=== PATIENT | female | born 1975 | race Hispanic/Latino ===

== ENCOUNTER 2016-05-06 10:49 | Inpatient (IN) | payer MEDICAID, OTHER ==
[2016-05-06 11:00] VITALS: BMI 27.6
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
[2016-05-06] MEDS: OLANZapine 5 mg Disintegrating Tab PO SCH (21:15)
[2016-05-06] MEDS: Divalproex 500 mg DR(BID formulation) PO SCH (21:15)
[2016-05-07] MEDS: Divalproex 500 mg DR(BID formulation) PO SCH ×2 (09:23→21:22)
[2016-05-07] MEDS: Multivitamin With Minerals Tab PO SCH (09:24)
--- NOTE | 2016-05-07 10:03 | PCM.PYCHPN ---
Psychiatric Progress Note - Psychiatric Progress Note Patient seen today, length of contact: Patient evaluated, case discussed with team, chart reviewed Patient Chief Complaint: "I'm okay" Problems Identified/Issues Discussed: Patient was calm and cooperative overnight. She was pleasant to senior medical writer. Observed lying in bed with her Joseph doll (stuffed animal). She denied current compliants or adverse effects to her medications. She states that her mood is good. Medication Change: No Medical Record Reviewed: Yes Mental Status Examination - Cognitive Function Orientation: Person Attention: WNL Concentration: Poor (Poor due to dementia) Association: Loose (Loose due to dementia) Fund of Knowledge: Poor (Poor due to dementia) Decription of patient's judgement and insights: Poor due to dementia - Mood Mood: Neutral - Affect Affect: Broad - Formal Thought Process Formal Thought Process: Delusions, Loosening of associations Psychotic Thoughts and Behaviors: No AH/VH/paranoia - Suicidal Ideation Suicidal Ideation: No - Homicidal Ideation Homicidal Ideation: No Goal/Treatment Plan - Goal/Treatment Plan Need for Continued Stay: Remain at risks for inpatient hospitalization, Severe functional impairment Progress Toward Problem(s) and Goals/Treatment Plan: Impression: 40 yo female with dementia with behavioral disturbances, due to h/o cardiac arrest and complications related to anoxia Plan: -Individual, group and milieu tx -Will work with court appointed guardian for disposition planning, patient will likely need detention care upon discharge due to diminished functioning -Continue Seroquel 50 mg PO HS, will continue to slowly taper it off after patient has been on the increased dosage of Zyprexa for a few days -Continue Zyprexa 15 mg PO HS, will consider increasing dosage if clinically indicated. -Continue Depakote 500 mg Daily/ 1000 mg HS
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
[2016-05-07] MEDS: OLANZapine 5 mg Disintegrating Tab PO SCH (21:22)
--- NOTE | 2016-05-08 08:48 | PCM.PYCHPN ---
Psychiatric Progress Note - Psychiatric Progress Note Patient seen today, length of contact: Patient evaluated, case discussed with team, chart reviewed Patient Chief Complaint: "I'm okay" Problems Identified/Issues Discussed: Patient was calm and cooperative overnight. She was pleasant to conventional underwriter. She denied current complaints or adverse effects to her medications. She states that her mood is good. She continues to be disoriented to time and location. Medication Change: No Medical Record Reviewed: Yes Mental Status Examination - Cognitive Function Orientation: Person Attention: WNL Concentration: Poor (Poor due to dementia) Association: Loose (Loose due to dementia) Fund of Knowledge: Poor (Poor due to dementia) Decription of patient's judgement and insights: Poor due to dementia - Mood Mood: Neutral - Affect Affect: Broad - Formal Thought Process Formal Thought Process: Delusions, Loosening of associations Psychotic Thoughts and Behaviors: No clear AH/VH - Suicidal Ideation Suicidal Ideation: No - Homicidal Ideation Homicidal Ideation: No Goal/Treatment Plan - Goal/Treatment Plan Need for Continued Stay: Remain at risks for inpatient hospitalization, Severe functional impairment Progress Toward Problem(s) and Goals/Treatment Plan: Impression: 40 yo female with dementia with behavioral disturbances, due to h/o cardiac arrest and complications related to anoxia Plan: -Individual, group and milieu tx -Will work with court appointed guardian for disposition planning, patient will likely need longterm care upon discharge due to diminished functioning -Continue Seroquel 50 mg PO HS, will continue to slowly taper it off after patient has been on the increased dosage of Zyprexa for a few days -Continue Zyprexa 15 mg PO HS, will consider increasing dosage if clinically indicated. -Continue Depakote 500 mg Daily/ 1000 mg HS
[2016-05-08] MEDS: Divalproex 500 mg DR(BID formulation) PO SCH (09:28)
[2016-05-08] MEDS: Multivitamin With Minerals Tab PO SCH (09:29)
[2016-05-08 10:10] LABS: HEMATOCRIT 41.3 % (34.0-47.0); MEAN CELL VOLUME 88.9 fl (81.0-99.0); MEAN CORPUSCULAR HEMOGLOBIN 28.7 pg (27.0-31.0); MEAN CORPUSCULAR HGB CONC 32.2 g/dL (33.0-37.0); RED CELL DISTRIBUTION WIDTH 13.7 % (11.5-14.5); WHITE BLOOD COUNT 5.9 K/uL (4.8-10.8)
[2016-05-08] MEDS: OLANZapine 5 mg Disintegrating Tab PO SCH (21:03)
[2016-05-09] MEDS: Multivitamin With Minerals Tab PO SCH (08:54)
--- NOTE | 2016-05-09 09:37 | CP.PCM.PN ---
Subjective - Date & Time of Evaluation Date of Evaluation: 05/09/16 Time of Evaluation: 08:30 - Subjective Subjective: Pt seen and evaluated at bedside. Sitting up in bed, looking through a magazine. Denies any complaints at this time. Has been sleeping and eating well. Last BM yesterday. Objective - Vital Signs/Intake and Output Vital Signs (last 24 hours): Temp Pulse Resp BP Pulse Ox 97 F L 75 20 131/81 05/09/16 06:00 05/09/16 08:54 05/09/16 06:00 05/09/16 08:54 - Medications Medications: Current Medications Amiodarone HCl (Cordarone) 200 mg PO DAILY [facility] Last Admin: 05/09/16 08:54 Dose: 200 mg Apixaban (Eliquis) 2.5 mg PO DAILY [facility] PRN Reason: Protocol Last Admin: 05/09/16 08:53 Dose: 2.5 mg Cholecalciferol (Vitamin D) 1,000 iu PO DAILY [facility] Last Admin: 05/09/16 08:54 Dose: 1,000 iu Divalproex Sodium (Depakote Dr(*Bid*)) 1,000 mg PO HS [facility] Last Admin: 05/07/16 21:22 Dose: 1,000 mg Divalproex Sodium (Depakote Dr(*Bid*)) 500 mg PO DAILY [facility] Last Admin: 05/08/16 09:28 Dose: 500 mg Ferrous Sulfate (Feosol) 325 mg PO DAILY [facility] Last Admin: 05/09/16 08:54 Dose: 325 mg Lorazepam (Ativan) 1 mg PO Q4 PRN PRN Reason: Agitation Multivitamins/Minerals (Therapeutic-M Tab) 1 tab PO DAILY [facility] Last Admin: 05/09/16 08:54 Dose: 1 tab Olanzapine (Zyprexa Zydis) 15 mg PO HS [facility] Last Admin: 05/08/16 21:03 Dose: 15 mg Quetiapine Fumarate (Seroquel) 50 mg PO HS [facility] Last Admin: 05/08/16 21:04 Dose: 50 mg - Labs Labs: 05/08/16 08:54 - Constitutional Appears: No Acute Distress - Head Exam Head Exam: NORMAL INSPECTION - Eye Exam Eye Exam: Normal appearance - ENT Exam ENT Exam: Mucous Membranes Moist - Respiratory Exam Respiratory Exam: Clear to Ausculation Bilateral - Cardiovascular Exam Cardiovascular Exam: REGULAR RHYTHM - GI/Abdominal Exam GI & Abdominal Exam: Soft, Normal Bowel Sounds. absent: Tenderness - Extremities Exam Extremities Exam: absent: Calf Tenderness - Neurological Exam Neurological Exam: Awake Assessment and Plan - Assessment and Plan (Free Text) Assessment: 1. S/P Cardiac Arrest in 10/2015 - V-fib secondary to cardiomyopathy - Echo ~ 15-20% - C/w Eliquis 2.5mg daily - C/w Amiodarone 200mg PO daily 2. Anoxic encephalopathy with behavior disturbances - Management per psych
--- NOTE | 2016-05-09 10:42 | PCM.PYCHPN ---
Psychiatric Progress Note - Psychiatric Progress Note Patient seen today, length of contact: Patient evaluated, case discussed with team, chart reviewed Patient Chief Complaint: i'm a little tired Problems Identified/Issues Discussed: pt tolerating meds, although depakote held by rn last night. she is without aggression or agitation and is no longer on 1:1 supervision. she is oriented to self only. irritable at times, but is redirectable. Medication Change: No Medical Record Reviewed: Yes Mental Status Examination - Cognitive Function Orientation: Person Attention: WNL Concentration: Poor (Poor due to dementia) Association: Loose (Loose due to dementia) Fund of Knowledge: Poor (Poor due to dementia) Decription of patient's judgement and insights: poor - Mood Mood: Neutral - Affect Affect: Broad - Formal Thought Process Formal Thought Process: Delusions, Loosening of associations - Suicidal Ideation Suicidal Ideation: No - Homicidal Ideation Homicidal Ideation: No Goal/Treatment Plan - Goal/Treatment Plan Need for Continued Stay: Remain at risks for inpatient hospitalization, Severe functional impairment Progress Toward Problem(s) and Goals/Treatment Plan: continue current medications t.c checking depakote level if pt still c/o sedation
[2016-05-09] MEDS: Divalproex 500 mg DR(BID formulation) PO SCH ×2 (12:57→22:01)
[2016-05-09] MEDS: OLANZapine 5 mg Disintegrating Tab PO SCH (22:02)
[2016-05-10] MEDS: Multivitamin With Minerals Tab PO SCH (08:35)
[2016-05-10] MEDS: Divalproex 500 mg DR(BID formulation) PO SCH ×2 (08:35→21:02)
--- NOTE | 2016-05-10 11:16 | PCM.PYCHPN ---
Psychiatric Progress Note - Psychiatric Progress Note Patient seen today, length of contact: Patient evaluated, case discussed with team, chart reviewed Patient Chief Complaint: i'm still tired Problems Identified/Issues Discussed: pt in day area watching [employer]. states she is "a little tired" pt's pm seroquel, zyprexa and depakote held as she was sleeping- last 2 nights. pt without any aggression, agitation. she is no longer on 1:1 supervision. no self injurious behaviors. Medication Change: Yes (dc hs seroquel) Medical Record Reviewed: Yes Mental Status Examination - Cognitive Function Orientation: Person Attention: WNL Concentration: Poor (Poor due to dementia) Association: Loose (Loose due to dementia) Fund of Knowledge: Poor (Poor due to dementia) Decription of patient's judgement and insights: poor insight, good impulse control currently - Mood Mood: Neutral - Affect Affect: Broad - Formal Thought Process Formal Thought Process: Delusions, Loosening of associations - Suicidal Ideation Suicidal Ideation: No - Homicidal Ideation Homicidal Ideation: No Goal/Treatment Plan - Goal/Treatment Plan Need for Continued Stay: Remain at risks for inpatient hospitalization, Severe functional impairment Progress Toward Problem(s) and Goals/Treatment Plan: continue current medications have dc'd seroquel as pt not getting it x 2 nights t/c switching to daily depakote er, but will leave to primary team
[2016-05-10] MEDS: OLANZapine 5 mg Disintegrating Tab PO SCH (21:02)
[2016-05-11 07:28] LABS: HEMATOCRIT 37.3 % (34.0-47.0); MEAN CELL VOLUME 86.8 fl (81.0-99.0); MEAN CORPUSCULAR HEMOGLOBIN 28.9 pg (27.0-31.0); MEAN CORPUSCULAR HGB CONC 33.3 g/dL (33.0-37.0); RED CELL DISTRIBUTION WIDTH 13.5 % (11.5-14.5); WHITE BLOOD COUNT 5.5 K/uL (4.8-10.8)
[2016-05-11] MEDS: Multivitamin With Minerals Tab PO SCH (08:27)
[2016-05-11] MEDS: Divalproex 500 mg DR(BID formulation) PO SCH ×3 (08:29→21:15)
--- NOTE | 2016-05-11 08:39 | PCM.PYCHPN ---
Psychiatric Progress Note - Psychiatric Progress Note Patient seen today, length of contact: Patient evaluated, case discussed with team, chart reviewed Patient Chief Complaint: "I'm good" Problems Identified/Issues Discussed: No significant events over the weekend. Patient calm and cooperative with sports book writer. She has been eating well and sleeping well as per staff. She denied current complaints or adverse effects to her medications. She states that her mood is good. She continues to be disoriented to time and location. Medication Change: No (Change Depakote 1000 mg time to Daily@1700, Lower Zyprexa to 10 mg @1700) Medical Record Reviewed: Yes Mental Status Examination - Cognitive Function Orientation: Person Attention: WNL Concentration: Poor (Poor due to dementia) Association: Loose (Loose due to dementia) Fund of Knowledge: Poor (Poor due to dementia) Decription of patient's judgement and insights: Poor insight and judgment due to dementia - Mood Mood: Neutral - Affect Affect: Broad - Speech Speech: Appropriate - Formal Thought Process Formal Thought Process: Delusions, Loosening of associations Psychotic Thoughts and Behaviors: No AH/VH. Patient continues to refer to her Joseph doll as her baby, but does seem to understand that it is not a real person. - Suicidal Ideation Suicidal Ideation: No - Homicidal Ideation Homicidal Ideation: No Goal/Treatment Plan - Goal/Treatment Plan Need for Continued Stay: Remain at risks for inpatient hospitalization, Severe functional impairment Progress Toward Problem(s) and Goals/Treatment Plan: Impression: 40 yo female with dementia with behavioral disturbances, due to h/o cardiac arrest and complications related to anoxia Plan: -Individual, group and milieu tx -Will work with court appointed guardian for disposition planning, patient will likely need prison care upon discharge due to diminished functioning -Change time of Depakote 1000 mg to Daily@1700 as it was held over the weekend because the patient was sleeping -Attempt to lower Zyprexa to 10 mg PO Daily @1700 as patient was in good behavioral control over the weekend even with missing doses due to sleeping at night. If patient has worsening behavior with lowered dose, will consider increasing it again. Would aim to optimize her treatment at the lowest effective doses of medications.
--- NOTE | 2016-05-12 07:50 | PCM.PYCHPN ---
Psychiatric Progress Note - Psychiatric Progress Note Patient seen today, length of contact: Patient evaluated, case discussed with team, chart reviewed Patient Chief Complaint: "I'm good" Problems Identified/Issues Discussed: No significant events overnight. Patient attempted to tell the keno writer/runner a story but became confused in the middle of the story and stopped. Patient calm and cooperative. She denied current complaints or adverse effects to her medications. She states that her mood is good. She continues to be disoriented to time and location. Medication Change: No (Lower Depakote to 500 mg AM/ 750 mg Daily@1700) Medical Record Reviewed: Yes Mental Status Examination - Cognitive Function Orientation: Person Attention: WNL Concentration: Poor (Poor due to dementia) Association: Loose (Loose due to dementia) Fund of Knowledge: Poor (Poor due to dementia) Decription of patient's judgement and insights: Poor insight and judgment due to dementia - Mood Mood: Neutral - Affect Affect: Broad - Speech Speech: Appropriate - Formal Thought Process Formal Thought Process: Delusions, Loosening of associations Psychotic Thoughts and Behaviors: No reported AH/VH. Carries a john doll and calls it her baby, but appears to know that the doll is not real. - Suicidal Ideation Suicidal Ideation: No - Homicidal Ideation Homicidal Ideation: No Goal/Treatment Plan - Goal/Treatment Plan Need for Continued Stay: Remain at risks for inpatient hospitalization, Severe functional impairment Progress Toward Problem(s) and Goals/Treatment Plan: Impression: 40 yo female with dementia with behavioral disturbances, due to h/o cardiac arrest and complications related to anoxia Plan: -Individual, group and milieu tx -Will work with court appointed guardian for disposition planning, patient will likely need alf care upon discharge due to diminished functioning -Lower Depakote to 500 mg AM/ 750 mg PO @1700; as patient was in good behavioral control over the weekend even with missing doses due to sleeping at night. If patient has worsening behavior with lowered dose, will consider increasing it again. Would aim to optimize her treatment at the lowest effective doses of medications. -Continue Zyprexa 10 mg PO Daily @1700
[2016-05-12] MEDS: Multivitamin With Minerals Tab PO SCH (08:45)
[2016-05-12] MEDS: Divalproex 500 mg DR(BID formulation) PO SCH (08:46)
--- NOTE | 2016-05-12 11:53 | CP.PCM.PN ---
Subjective - Date & Time of Evaluation Date of Evaluation: 05/12/16 Time of Evaluation: 07:00 - Subjective Subjective: 40 YO F appears to be doing well. She was sitting at bedside looking through magazines. She states she feels well, she has been eating fine and has no problems going to the bathroom. Denies any SOB, chest pain , diziness, headache. Objective - Vital Signs/Intake and Output Vital Signs (last 24 hours): Temp Pulse Resp BP Pulse Ox 97.7 F 70 18 86/57 L 05/12/16 06:00 05/12/16 08:44 05/12/16 06:00 05/12/16 08:44 - Medications Medications: Current Medications Amiodarone HCl (Cordarone) 200 mg PO DAILY [facility] Last Admin: 05/12/16 08:44 Dose: Not Given Apixaban (Eliquis) 2.5 mg PO DAILY [facility] PRN Reason: Protocol Last Admin: 05/12/16 08:45 Dose: 2.5 mg Cholecalciferol (Vitamin D) 1,000 iu PO DAILY [facility] Last Admin: 05/12/16 08:45 Dose: 1,000 iu Divalproex Sodium (Depakote Dr(*Bid*)) 500 mg PO DAILY [facility] Last Admin: 05/12/16 08:46 Dose: 500 mg Divalproex Sodium (Depakote Dr(*Bid*)) 750 mg PO DAILY@1700 [facility] Ferrous Sulfate (Feosol) 325 mg PO DAILY [facility] Last Admin: 05/12/16 08:45 Dose: 325 mg Lorazepam (Ativan) 1 mg PO Q4 PRN PRN Reason: Agitation Multivitamins/Minerals (Therapeutic-M Tab) 1 tab PO DAILY [facility] Last Admin: 05/12/16 08:45 Dose: 1 tab Olanzapine (Zyprexa) 10 mg PO DAILY@1700 [facility] Last Admin: 05/11/16 17:14 Dose: Not Given - Labs Labs: 05/11/16 07:04 - Constitutional Appears: No Acute Distress - Eye Exam Eye Exam: Normal appearance - ENT Exam ENT Exam: Mucous Membranes Moist - Respiratory Exam Respiratory Exam: Clear to Ausculation Bilateral, NORMAL BREATHING PATTERN - Cardiovascular Exam Cardiovascular Exam: REGULAR RHYTHM, +S1, +S2 - Neurological Exam Neurological Exam: Alert, Awake, Oriented x3 - Psychiatric Exam Psychiatric exam: Normal Affect, Normal Mood - Skin Skin Exam: Dry, Normal Color Assessment and Plan - Assessment and Plan (Free Text) Assessment: 1. S/P Cardiac Arrest in 10/2015 - V-fib secondary to cardiomyopathy - Echo ~ 15-20% - C/w Eliquis 2.5mg daily - C/w Amiodarone 200mg PO daily - BP today was noted to be 86/57 w/ HR 70. Will continue to monitor and make adjustments to medications if need. Pt does not appear symptomatic/ 2. Anoxic encephalopathy with behavior disturbances - Management per psych
[2016-05-12] MEDS: Divalproex 250 mg DR(BID formulation) PO SCH (17:01)
[2016-05-13] MEDS: Divalproex 500 mg DR(BID formulation) PO SCH (09:11)
[2016-05-13] MEDS: Multivitamin With Minerals Tab PO SCH (09:11)
--- NOTE | 2016-05-13 09:25 | PCM.PYCHPN ---
Psychiatric Progress Note - Psychiatric Progress Note Patient seen today, length of contact: Patient evaluated, case discussed with team, chart reviewed Patient Chief Complaint: "I'm good" Problems Identified/Issues Discussed: No significant events overnight. Patient observed in the dining zee sitting quietly with her Joseph doll. She denied acute complaints. As per staff, she was labile during one of the groups yesterday, cried while telling a story, but then changed moods again quickly. She states that her mood is good. She continues to be disoriented to time and location. Medication Change: No Medical Record Reviewed: Yes Mental Status Examination - Cognitive Function Orientation: Person Attention: WNL Concentration: Poor (Poor due to dementia) Association: Loose (Loose due to dementia) Fund of Knowledge: Poor (Poor due to dementia) Decription of patient's judgement and insights: Limited insight and judgment due to dementia. She has been calm and cooperative without event since transferred to the psychiatric unit. - Mood Mood: Neutral - Affect Affect: Broad - Speech Speech: Appropriate - Formal Thought Process Formal Thought Process: Delusions, Loosening of associations Psychotic Thoughts and Behaviors: Denies AH/VH and seems to know that her Joseph doll is not real, but continues to carry it around in a delusional manner. - Suicidal Ideation Suicidal Ideation: No - Homicidal Ideation Homicidal Ideation: No Goal/Treatment Plan - Goal/Treatment Plan Need for Continued Stay: Remain at risks for inpatient hospitalization, Severe functional impairment Progress Toward Problem(s) and Goals/Treatment Plan: Impression: 40 yo female with dementia with behavioral disturbances, due to h/o cardiac arrest and complications related to anoxia Plan: -Individual, group and milieu tx -Will work with court appointed guardian for disposition planning, patient will likely need care home care upon discharge due to diminished functioning -Continue Depakote 500 mg AM/ 750 mg PO @1700 -Continue Zyprexa 10 mg PO Daily @1700
[2016-05-13] MEDS: Divalproex 250 mg DR(BID formulation) PO SCH (16:42)
--- NOTE | 2016-05-14 08:48 | PCM.PYCHPN ---
Psychiatric Progress Note - Psychiatric Progress Note Patient seen today, length of contact: Patient evaluated, case discussed with team, chart reviewed Patient Chief Complaint: "I'm good" Problems Identified/Issues Discussed: No significant events overnight. Patient observed resting in bed with her john doll. She denied acute complaints. She has not had any periods of aggression or agitation towards others. She states that her mood is good. Patient was able to participate in team meeting yesterday, but has obvious deficits in memory, as she does not know why she is in the hospital and believes she has only been here for 2 days instead of several months. She continues to be disoriented to time and location. Medication Change: No Medical Record Reviewed: Yes Mental Status Examination - Cognitive Function Orientation: Person Attention: WNL Concentration: Poor (Poor due to dementia) Association: Loose (Loose due to dementia) Fund of Knowledge: Poor (Poor due to dementia) Decription of patient's judgement and insights: Poor insight and judgment due to dementia - Mood Mood: Neutral - Affect Affect: Broad - Speech Speech: Appropriate - Formal Thought Process Formal Thought Process: Delusions, Loosening of associations Psychotic Thoughts and Behaviors: Denies AH/VH. - Suicidal Ideation Suicidal Ideation: No - Homicidal Ideation Homicidal Ideation: No Goal/Treatment Plan - Goal/Treatment Plan Need for Continued Stay: Remain at risks for inpatient hospitalization, Severe functional impairment Progress Toward Problem(s) and Goals/Treatment Plan: Impression: 40 yo female with dementia with behavioral disturbances, due to h/o cardiac arrest and complications related to anoxia Plan: -Individual, group and milieu tx -Will work with court appointed guardian for disposition planning, patient will likely need intermediate care upon discharge due to diminished functioning -Continue Depakote 500 mg AM/ 750 mg PO @1700 -Continue Zyprexa 10 mg PO Daily @1700
[2016-05-14] MEDS: Divalproex 500 mg DR(BID formulation) PO SCH (08:56)
[2016-05-14] MEDS: Multivitamin With Minerals Tab PO SCH (08:57)
[2016-05-14] MEDS: Divalproex 250 mg DR(BID formulation) PO SCH (18:17)
[2016-05-15] MEDS: Multivitamin With Minerals Tab PO SCH (08:28)
[2016-05-15] MEDS: Divalproex 500 mg DR(BID formulation) PO SCH (08:30)
--- NOTE | 2016-05-15 08:31 | PCM.PYCHPN ---
Psychiatric Progress Note - Psychiatric Progress Note Patient seen today, length of contact: Patient evaluated, case discussed with team, chart reviewed Patient Chief Complaint: "I'm good" Problems Identified/Issues Discussed: No significant events overnight. Patient observed eating calmly in the dining zee, without acute complaint. As per staff the patient was intermittently irritable yesterday, but was not aggressive, threatening or violent. She states that her mood is good. She continues to be disoriented to time and location. She continues to walk around with her Joseph doll. Medication Change: No Medical Record Reviewed: Yes Mental Status Examination - Cognitive Function Orientation: Person Memory: Impaired Attention: WNL Concentration: Poor (Poor due to dementia) Association: Loose (Loose due to dementia) Fund of Knowledge: Poor (Poor due to dementia) Decription of patient's judgement and insights: Poor insight and judgment due to dementia - Mood Mood: Neutral - Affect Affect: Broad - Speech Speech: Appropriate - Formal Thought Process Formal Thought Process: Delusions, Loosening of associations Psychotic Thoughts and Behaviors: Denies AH/VH. +Delusions about her Joseph doll, seems to acknowledge that it is not real, but treats it like a real baby. - Suicidal Ideation Suicidal Ideation: No - Homicidal Ideation Homicidal Ideation: No Goal/Treatment Plan - Goal/Treatment Plan Need for Continued Stay: Remain at risks for inpatient hospitalization, Severe functional impairment Progress Toward Problem(s) and Goals/Treatment Plan: Impression: 40 yo female with dementia with behavioral disturbances, due to h/o cardiac arrest and complications related to anoxia Plan: -Individual, group and milieu tx -Will work with court appointed guardian for disposition planning, patient will likely need [facility] care upon discharge due to diminished functioning -Continue Depakote 500 mg AM/ 750 mg PO @1700 -Continue Zyprexa 10 mg PO Daily @1700
--- NOTE | 2016-05-15 12:15 | CP.PCM.PN ---
<Kanu Malave - Last Filed: 05/15/16 12:26> Subjective - Date & Time of Evaluation Date of Evaluation: 05/15/16 Time of Evaluation: 07:40 - Subjective Subjective: - Patient is seen at bedside resting comfortably. She denies any overnight events. Denies chest pain, SOB, N/V/D. She has a good appetitite and has no problems with urinating or with bowl moments. Objective - Vital Signs/Intake and Output Vital Signs (last 24 hours): Temp Pulse Resp BP Pulse Ox 97.1 F L 65 18 150/50 L 05/15/16 06:00 05/15/16 08:29 05/15/16 06:00 05/15/16 08:29 - Medications Medications: Current Medications Amiodarone HCl (Cordarone) 200 mg PO DAILY [facility] Last Admin: 05/15/16 08:29 Dose: 200 mg Apixaban (Eliquis) 2.5 mg PO DAILY [facility] PRN Reason: Protocol Last Admin: 05/15/16 08:28 Dose: 2.5 mg Cholecalciferol (Vitamin D) 1,000 iu PO DAILY [facility] Last Admin: 05/15/16 08:28 Dose: 1,000 iu Divalproex Sodium (Depakote Dr(*Bid*)) 500 mg PO DAILY [facility] Last Admin: 05/15/16 08:30 Dose: 500 mg Divalproex Sodium (Depakote Dr(*Bid*)) 750 mg PO DAILY@1700 [facility] Last Admin: 05/14/16 18:17 Dose: 750 mg Ferrous Sulfate (Feosol) 325 mg PO DAILY [facility] Last Admin: 05/15/16 08:28 Dose: 325 mg Lorazepam (Ativan) 1 mg PO Q4 PRN PRN Reason: Agitation Multivitamins/Minerals (Therapeutic-M Tab) 1 tab PO DAILY [facility] Last Admin: 05/15/16 08:28 Dose: 1 tab Olanzapine (Zyprexa) 10 mg PO DAILY@1700 [facility] Last Admin: 05/14/16 18:17 Dose: 10 mg - Labs Labs: 05/11/16 07:04 - Constitutional Appears: No Acute Distress - Respiratory Exam Respiratory Exam: Clear to Ausculation Bilateral, NORMAL BREATHING PATTERN - Cardiovascular Exam Cardiovascular Exam: REGULAR RHYTHM, +S1, +S2 - GI/Abdominal Exam GI & Abdominal Exam: Soft, Normal Bowel Sounds. absent: Rigid, Tenderness - Neurological Exam Neurological Exam: Alert, Awake, Normal Gait, Oriented x3 - Skin Skin Exam: Normal Color, Warm Assessment and Plan - Assessment and Plan (Free Text) Assessment: 1. S/P Cardiac Arrest in 10/2015 - V-fib secondary to cardiomyopathy - Echo ~ 15-20% - C/w Eliquis 2.5mg daily - C/w Amiodarone 200mg PO daily - On repeat BP monitoring with manual, BP today was noted to be 100/70, intially this morning was 150/50 HR 65 . Will continue to monitor and make adjustments to medications if need. Pt does not appear symptomatic/ 2. Anoxic encephalopathy with behavior disturbances - Management per psych <Stefani Alicia - Last Filed: 05/15/16 12:52> Subjective - Date & Time of Evaluation Date of Evaluation: 05/15/16 Objective - Vital Signs/Intake and Output Vital Signs (last 24 hours): Temp Pulse Resp BP Pulse Ox 97.1 F L 65 18 150/50 L 05/15/16 06:00 05/15/16 08:29 05/15/16 06:00 05/15/16 08:29 - Medications Medications: Current Medications Amiodarone HCl (Cordarone) 200 mg PO DAILY [facility] Last Admin: 05/15/16 08:29 Dose: 200 mg Apixaban (Eliquis) 2.5 mg PO DAILY [facility] PRN Reason: Protocol Last Admin: 05/15/16 08:28 Dose: 2.5 mg Cholecalciferol (Vitamin D) 1,000 iu PO DAILY [facility] Last Admin: 05/15/16 08:28 Dose: 1,000 iu Divalproex Sodium (Depakote Dr(*Bid*)) 500 mg PO DAILY [facility] Last Admin: 05/15/16 08:30 Dose: 500 mg Divalproex Sodium (Depakote Dr(*Bid*)) 750 mg PO DAILY@1700 [facility] Last Admin: 05/14/16 18:17 Dose: 750 mg Ferrous Sulfate (Feosol) 325 mg PO DAILY [facility] Last Admin: 05/15/16 08:28 Dose: 325 mg Lorazepam (Ativan) 1 mg PO Q4 PRN PRN Reason: Agitation Multivitamins/Minerals (Therapeutic-M Tab) 1 tab PO DAILY [facility] Last Admin: 05/15/16 08:28 Dose: 1 tab Olanzapine (Zyprexa) 10 mg PO DAILY@1700 [facility] Last Admin: 05/14/16 18:17 Dose: 10 mg - Labs Labs: 05/11/16 07:04 - Additional Findings Additional findings: patient seen. case discussed with resident. agree with plan.
[2016-05-15 15:41] LABS: HEMATOCRIT 37.5 % (34.0-47.0); MEAN CELL VOLUME 88.1 fl (81.0-99.0); MEAN CORPUSCULAR HEMOGLOBIN 28.7 pg (27.0-31.0); MEAN CORPUSCULAR HGB CONC 32.6 g/dL (33.0-37.0); RED CELL DISTRIBUTION WIDTH 13.1 % (11.5-14.5); WHITE BLOOD COUNT 6.6 K/uL (4.8-10.8)
[2016-05-15] MEDS: Divalproex 250 mg DR(BID formulation) PO SCH (17:49)
[2016-05-16] MEDS: Divalproex 500 mg DR(BID formulation) PO SCH (08:16)
[2016-05-16] MEDS: Multivitamin With Minerals Tab PO SCH (08:16)
--- NOTE | 2016-05-16 12:09 | PCM.PYCHPN ---
Psychiatric Progress Note - Psychiatric Progress Note Patient seen today, length of contact: Patient evaluated, case discussed with team, chart reviewed Patient Chief Complaint: pt has remained intermittently irritible and still confused and disoriented and need redirection DSM 5 Symptoms Update: vascular dementia with behavior disturbances Medication Change: No Medical Record Reviewed: Yes Mental Status Examination - Cognitive Function Orientation: Person Memory: Impaired Attention: WNL Concentration: Poor (Poor due to dementia) Association: Loose (Loose due to dementia) Fund of Knowledge: Poor (Poor due to dementia) - Mood Mood: Neutral - Affect Affect: Broad - Speech Speech: Appropriate - Formal Thought Process Formal Thought Process: Delusions, Loosening of associations - Suicidal Ideation Suicidal Ideation: No - Homicidal Ideation Homicidal Ideation: No Goal/Treatment Plan - Goal/Treatment Plan Need for Continued Stay: Remain at risks for inpatient hospitalization, Severe functional impairment Progress Toward Problem(s) and Goals/Treatment Plan: will continue to titrate meds as regimen and engage pt in behavior plan on unit.
[2016-05-16] MEDS: Divalproex 250 mg DR(BID formulation) PO SCH (16:33)
[2016-05-17] MEDS: Multivitamin With Minerals Tab PO SCH (09:03)
[2016-05-17] MEDS: Divalproex 500 mg DR(BID formulation) PO SCH (09:05)
[2016-05-17] MEDS: Divalproex 250 mg DR(BID formulation) PO SCH (16:30)
[2016-05-18] MEDS: Divalproex 500 mg DR(BID formulation) PO SCH (09:12)
[2016-05-18] MEDS: Multivitamin With Minerals Tab PO SCH (09:12)
--- NOTE | 2016-05-18 09:49 | PCM.PYCHPN ---
Psychiatric Progress Note - Psychiatric Progress Note Patient seen today, length of contact: Patient evaluated, case discussed with team, chart reviewed Patient Chief Complaint: "I'm good" Problems Identified/Issues Discussed: No significant events over the weekend. Patient has episodes where she is intermittently labile. This morning she packed her bags because she thought she was being discharged today, but later put her stuff away. She told instructional writer that she was concerned about her daughter, but these concerns and packing of her belongings seem to be related to her dementia and difficulty knowing the date or what is going on at times. She continues to be disoriented to time and location. She continues to walk around with her John doll. Medication Change: No Medical Record Reviewed: Yes Mental Status Examination - Cognitive Function Orientation: Person Memory: Impaired Attention: WNL Concentration: Poor (Poor due to dementia) Association: Loose (Loose due to dementia) Fund of Knowledge: Poor (Poor due to dementia) Decription of patient's judgement and insights: Poor insight and judgment - Mood Mood: Neutral - Affect Affect: Broad - Speech Speech: Appropriate - Formal Thought Process Formal Thought Process: Delusions, Loosening of associations Psychotic Thoughts and Behaviors: No AH/VH. Continues to have delusional attachment to her john doll. - Suicidal Ideation Suicidal Ideation: No - Homicidal Ideation Homicidal Ideation: No Goal/Treatment Plan - Goal/Treatment Plan Need for Continued Stay: Remain at risks for inpatient hospitalization, Severe functional impairment Progress Toward Problem(s) and Goals/Treatment Plan: Impression: 40 yo female with dementia with behavioral disturbances, due to h/o cardiac arrest and complications related to anoxia Plan: -Individual, group and milieu tx -Will work with court appointed guardian for disposition planning, patient will likely need penitentiary care upon discharge due to diminished functioning -Continue Depakote 500 mg AM/ 750 mg PO @1700 -Continue Zyprexa 10 mg PO Daily @1700
[2016-05-18] MEDS: Divalproex 250 mg DR(BID formulation) PO SCH (17:54)
--- NOTE | 2016-05-19 07:45 | CP.PCM.PN ---
Subjective - Date & Time of Evaluation Date of Evaluation: 05/19/16 Time of Evaluation: 07:45 - Subjective Subjective: Patient seen this am, folding clothes on her bed. She states she feels well. No complaints at the time of this visit. Objective - Vital Signs/Intake and Output Vital Signs (last 24 hours): Temp Pulse Resp BP Pulse Ox 97.9 F 77 20 115/63 05/18/16 17:52 05/18/16 17:52 05/18/16 17:52 05/18/16 17:52 - Medications Medications: Current Medications Amiodarone HCl (Cordarone) 200 mg PO DAILY [facility] Last Admin: 05/18/16 09:16 Dose: 200 mg Apixaban (Eliquis) 2.5 mg PO DAILY [facility] PRN Reason: Protocol Last Admin: 05/18/16 17:54 Dose: 2.5 mg Cholecalciferol (Vitamin D) 1,000 iu PO DAILY [facility] Last Admin: 05/18/16 09:12 Dose: 1,000 iu Divalproex Sodium (Depakote Dr(*Bid*)) 500 mg PO DAILY [facility] Last Admin: 05/18/16 09:12 Dose: 500 mg Divalproex Sodium (Depakote Dr(*Bid*)) 750 mg PO DAILY@1700 [facility] Last Admin: 05/18/16 17:54 Dose: 750 mg Ferrous Sulfate (Feosol) 325 mg PO DAILY [facility] Last Admin: 05/18/16 09:12 Dose: 325 mg Lorazepam (Ativan) 1 mg PO Q4 PRN PRN Reason: Agitation Multivitamins/Minerals (Therapeutic-M Tab) 1 tab PO DAILY [facility] Last Admin: 05/18/16 09:12 Dose: 1 tab Olanzapine (Zyprexa) 10 mg PO DAILY@1700 [facility] Last Admin: 05/18/16 17:54 Dose: 10 mg - Labs Labs: 05/15/16 14:15 - Constitutional Appears: Well, No Acute Distress - Head Exam Head Exam: NORMAL INSPECTION - Eye Exam Eye Exam: Normal appearance - ENT Exam ENT Exam: Mucous Membranes Moist - Neck Exam Neck Exam: Normal Inspection - Respiratory Exam Respiratory Exam: NORMAL BREATHING PATTERN - Neurological Exam Neurological Exam: Alert, Awake, CN II-XII Intact - Skin Skin Exam: Dry, Intact Assessment and Plan - Assessment and Plan (Free Text) Plan: 40 year old female with anoxic encephalopathy s/p cardiac arrest. 1. S/P Cardiac Arrest in 10/2015 -- V-fib secondary to cardiomyopathy. -- Echo EF: ~ 15-20% -- Continue with present management. -Eliquis 2.5mg daily -Amiodarone 200mg PO daily 2. Anoxic encephalopathy with behavior disturbances -- Management per psych
--- NOTE | 2016-05-19 09:02 | PCM.PYCHPN ---
Psychiatric Progress Note - Psychiatric Progress Note Patient seen today, length of contact: Patient evaluated, case discussed with team, chart reviewed Patient Chief Complaint: "I'm good" Problems Identified/Issues Discussed: No significant events overnight. Patient observed lying comfortably in bed with her john doll. She has been packing and unpacking her belongings due to being disoriented, not knowing where she is and believing she is going to leave the hospital. She has refused to get her VPA level taken several times despite encouragement from the telegraphic typewriter operator. Patient denies current side effects to medications. No other acute compliants. She continues to be disoriented to time and location. Medication Change: No Medical Record Reviewed: Yes Mental Status Examination - Cognitive Function Orientation: Person Memory: Impaired Attention: WNL Concentration: Poor (Poor due to dementia) Association: Loose (Loose due to dementia) Fund of Knowledge: Poor (Poor due to dementia) Decription of patient's judgement and insights: Limited due to dementia. She has not been violent or aggressive since transfer to the psychiatric unit. - Mood Mood: Neutral - Affect Affect: Broad - Speech Speech: Appropriate - Formal Thought Process Formal Thought Process: Delusions, Loosening of associations Psychotic Thoughts and Behaviors: Denies AH/VH, but has delusional attachment to her john doll. - Suicidal Ideation Suicidal Ideation: No - Homicidal Ideation Homicidal Ideation: No Goal/Treatment Plan - Goal/Treatment Plan Need for Continued Stay: Remain at risks for inpatient hospitalization, Severe functional impairment Progress Toward Problem(s) and Goals/Treatment Plan: Impression: 40 yo female with dementia with behavioral disturbances, due to h/o cardiac arrest and complications related to anoxia Plan: -Individual, group and milieu tx -Will work with court appointed guardian for disposition planning, patient will likely need fdc care upon discharge due to diminished functioning -Continue Depakote 500 mg AM/ 750 mg PO @1700 -Continue Zyprexa 10 mg PO Daily @1700
[2016-05-19] MEDS: Multivitamin With Minerals Tab PO SCH (09:38)
[2016-05-19] MEDS: Divalproex 500 mg DR(BID formulation) PO SCH (09:38)
[2016-05-19] MEDS: Divalproex 250 mg DR(BID formulation) PO SCH (17:55)
[2016-05-20] MEDS: Multivitamin With Minerals Tab PO SCH (09:10)
[2016-05-20] MEDS: Divalproex 500 mg DR(BID formulation) PO SCH (09:10)
--- NOTE | 2016-05-20 10:02 | PCM.PYCHPN ---
Psychiatric Progress Note - Psychiatric Progress Note Patient seen today, length of contact: Patient evaluated, case discussed with team, chart reviewed Patient Chief Complaint: "I'm good" Problems Identified/Issues Discussed: Patient observed lying comfortably in bed with her john doll. No significant events overnight. She has refused to get her VPA level taken several times despite encouragement from the typewriter assembler. Patient denies current side effects to medications. No other acute compliants. She continues to be disoriented to time and location. She is calm and pleasant towards staff and engages in group appropriately. Medication Change: No Medical Record Reviewed: Yes Mental Status Examination - Cognitive Function Orientation: Person Memory: Impaired Attention: WNL Concentration: Poor (Poor due to dementia) Association: Loose (Loose due to dementia) Fund of Knowledge: Poor (Poor due to dementia) Decription of patient's judgement and insights: Poor insight and limited judgment. She has been in good behavioral control since admission to psychiatric unit. - Mood Mood: Neutral - Affect Affect: Broad - Speech Speech: Appropriate - Formal Thought Process Formal Thought Process: Delusions, Loosening of associations Psychotic Thoughts and Behaviors: No AH/VH/paranoia - Suicidal Ideation Suicidal Ideation: No - Homicidal Ideation Homicidal Ideation: No Goal/Treatment Plan - Goal/Treatment Plan Need for Continued Stay: Remain at risks for inpatient hospitalization, Severe functional impairment Progress Toward Problem(s) and Goals/Treatment Plan: Impression: 40 yo female with dementia with behavioral disturbances, due to h/o cardiac arrest and complications related to anoxia Plan: -Individual, group and milieu tx -Will work with court appointed guardian for disposition planning, patient will likely need residential care upon discharge due to diminished functioning -Continue Depakote 500 mg AM/ 750 mg PO @1700 -Continue Zyprexa 10 mg PO Daily @1700
[2016-05-20] MEDS: Divalproex 250 mg DR(BID formulation) PO SCH (17:47)
--- NOTE | 2016-05-21 06:47 | CP.PCM.PN ---
Subjective - Date & Time of Evaluation Date of Evaluation: 05/21/16 Time of Evaluation: 06:47 - Subjective Subjective: Patient sleeping in bed with john next to her. No acute events overnight. Objective - Vital Signs/Intake and Output Vital Signs (last 24 hours): Temp Pulse Resp BP Pulse Ox 97.5 F L 72 18 102/68 05/21/16 06:00 05/21/16 06:00 05/21/16 06:00 05/21/16 06:00 - Medications Medications: Current Medications Amiodarone HCl (Cordarone) 200 mg PO DAILY [facility] Last Admin: 05/20/16 09:10 Dose: 200 mg Apixaban (Eliquis) 2.5 mg PO DAILY [facility] PRN Reason: Protocol Last Admin: 05/20/16 09:10 Dose: 2.5 mg Cholecalciferol (Vitamin D) 1,000 iu PO DAILY [facility] Last Admin: 05/20/16 09:10 Dose: 1,000 iu Divalproex Sodium (Depakote Dr(*Bid*)) 500 mg PO DAILY [facility] Last Admin: 05/20/16 09:10 Dose: 500 mg Divalproex Sodium (Depakote Dr(*Bid*)) 750 mg PO DAILY@1700 [facility] Last Admin: 05/20/16 17:47 Dose: 750 mg Ferrous Sulfate (Feosol) 325 mg PO DAILY [facility] Last Admin: 05/20/16 09:10 Dose: 325 mg Lorazepam (Ativan) 1 mg PO Q4 PRN PRN Reason: Agitation Multivitamins/Minerals (Therapeutic-M Tab) 1 tab PO DAILY [facility] Last Admin: 05/20/16 09:10 Dose: 1 tab Olanzapine (Zyprexa) 10 mg PO DAILY@1700 [facility] Last Admin: 05/20/16 17:47 Dose: 10 mg - Labs Labs: 05/15/16 14:15 - Constitutional Appears: Well, No Acute Distress - Head Exam Head Exam: NORMAL INSPECTION - Neck Exam Neck Exam: Normal Inspection - Respiratory Exam Respiratory Exam: NORMAL BREATHING PATTERN Assessment and Plan - Assessment and Plan (Free Text) Plan: 40 year old female with anoxic encephalopathy s/p cardiac arrest, no clinical changes. 1. S/P Cardiac Arrest in 10/2015 -- V-fib secondary to cardiomyopathy. -- Echo EF: ~ 15-20% -- Continue with present management. -Eliquis 2.5mg daily -Amiodarone 200mg PO daily 2. Anoxic encephalopathy with behavior disturbances -- Management per psych
[2016-05-21] MEDS: Divalproex 500 mg DR(BID formulation) PO SCH (08:12)
[2016-05-21] MEDS: Multivitamin With Minerals Tab PO SCH (08:12)
--- NOTE | 2016-05-21 09:55 | PCM.PYCHPN ---
Psychiatric Progress Note - Psychiatric Progress Note Patient seen today, length of contact: Patient evaluated, case discussed with team, chart reviewed Patient Chief Complaint: "I'm good" Problems Identified/Issues Discussed: Patient continues to have intermittent periods of mood lability, but is overall calm, cooperative and engages appropriately with others. Patient was observed lying comfortably in bed with her john doll. No significant events overnight. She continues to refuse to have her VPA level taken despite encouragement from the chart writer. Patient denies current side effects to medications. No other acute compliants. She continues to be disoriented to time and location. Medication Change: No Medical Record Reviewed: Yes Mental Status Examination - Cognitive Function Orientation: Person Memory: Impaired Attention: WNL Concentration: Poor (Poor due to dementia) Association: Loose (Loose due to dementia) Fund of Knowledge: Poor (Poor due to dementia) Decription of patient's judgement and insights: Poor insight, limited judgment. Patient calm and not aggressive on the unit. - Mood Mood: Neutral - Affect Affect: Broad - Speech Speech: Appropriate - Formal Thought Process Formal Thought Process: Delusions, Loosening of associations Psychotic Thoughts and Behaviors: NO AH/VH/paranoia - Suicidal Ideation Suicidal Ideation: No - Homicidal Ideation Homicidal Ideation: No Goal/Treatment Plan - Goal/Treatment Plan Need for Continued Stay: Remain at risks for inpatient hospitalization, Severe functional impairment Progress Toward Problem(s) and Goals/Treatment Plan: Impression: 40 yo female with dementia with behavioral disturbances, due to h/o cardiac arrest and complications related to anoxia Plan: -Individual, group and milieu tx -Will work with court appointed guardian for disposition planning, patient will likely need senior living care upon discharge due to diminished functioning -Continue Depakote 500 mg AM/ 750 mg PO @1700 -Continue Zyprexa 10 mg PO Daily @1700
[2016-05-21] MEDS: Divalproex 250 mg DR(BID formulation) PO SCH (16:14)
[2016-05-22] MEDS: Multivitamin With Minerals Tab PO SCH (09:23)
[2016-05-22] MEDS: Divalproex 500 mg DR(BID formulation) PO SCH (09:23)
--- NOTE | 2016-05-22 10:08 | PCM.PYCHPN ---
Psychiatric Progress Note - Psychiatric Progress Note Patient seen today, length of contact: Patient evaluated, case discussed with team, chart reviewed Patient Chief Complaint: "I'm good" Problems Identified/Issues Discussed: Patient is not agreeable to showering for several days, despite staff encouragement. She becomes more irritable at the suggestion of bathing. Patient continues to have intermittent periods of mood lability, but is mostly calm & cooperative. Patient was observed sitting up in bed, eating with her john doll. No significant events overnight. She continues to refuse to have her VPA level taken despite encouragement from the grant writer. Patient denies current side effects to medications. No other acute compliants. She continues to be disoriented to time and location due to anoxic brain damage. Medication Change: No Medical Record Reviewed: Yes Mental Status Examination - Cognitive Function Orientation: Person Memory: Impaired Attention: WNL Concentration: Poor (Poor due to dementia) Association: Loose (Loose due to dementia) Fund of Knowledge: Poor (Poor due to dementia) Decription of patient's judgement and insights: Poor insight, limited judgment - Mood Mood: Neutral - Affect Affect: Broad - Speech Speech: Appropriate - Formal Thought Process Formal Thought Process: Delusions, Loosening of associations Psychotic Thoughts and Behaviors: No AH/VH - Suicidal Ideation Suicidal Ideation: No - Homicidal Ideation Homicidal Ideation: No Goal/Treatment Plan - Goal/Treatment Plan Need for Continued Stay: Remain at risks for inpatient hospitalization, Severe functional impairment Progress Toward Problem(s) and Goals/Treatment Plan: Impression: 40 yo female with dementia with behavioral disturbances, due to h/o cardiac arrest and complications related to anoxia Plan: -Individual, group and milieu tx -Will work with court appointed guardian for disposition planning, patient will likely need residential care upon discharge due to diminished functioning -Continue Depakote 500 mg AM/ 750 mg PO @1700 -Continue Zyprexa 10 mg PO Daily @1700
[2016-05-22] MEDS: Divalproex 250 mg DR(BID formulation) PO SCH (16:17)
--- NOTE | 2016-05-23 08:59 | PCM.PYCHPN ---
Psychiatric Progress Note - Psychiatric Progress Note Patient seen today, length of contact: Patient evaluated, case discussed with team, chart reviewed Patient Chief Complaint: "I didn't sleep well last night" Problems Identified/Issues Discussed: Patient was lying in bed with her john doll, stated that she didn't sleep well last night. She was calm overnight with no incidents of aggressive behavior or mood lability. She continues to refuse to have her VPA level taken despite encouragement from the flex o writer operator. Patient denies current side effects to medications. No other acute compliants. She continues to be disoriented to time and location due to anoxic brain damage. Medication Change: No Medical Record Reviewed: Yes Mental Status Examination - Cognitive Function Orientation: Person Memory: Impaired Attention: WNL Concentration: Poor (Poor due to dementia) Association: Loose (Loose due to dementia) Fund of Knowledge: Poor (Poor due to dementia) Decription of patient's judgement and insights: Poor due to dementia - Mood Mood: Neutral - Affect Affect: Broad - Speech Speech: Appropriate - Formal Thought Process Formal Thought Process: Delusions, Loosening of associations Psychotic Thoughts and Behaviors: NO AH/VH - Suicidal Ideation Suicidal Ideation: No - Homicidal Ideation Homicidal Ideation: No Goal/Treatment Plan - Goal/Treatment Plan Need for Continued Stay: Remain at risks for inpatient hospitalization, Severe functional impairment Progress Toward Problem(s) and Goals/Treatment Plan: Impression: 40 yo female with dementia with behavioral disturbances, due to h/o cardiac arrest and complications related to anoxia Plan: -Individual, group and milieu tx -Will work with court appointed guardian for disposition planning, patient will likely need senior care care upon discharge due to diminished functioning -Continue Depakote 500 mg AM/ 750 mg PO @1700 -Continue Zyprexa 10 mg PO Daily @1700
[2016-05-23] MEDS: Divalproex 500 mg DR(BID formulation) PO SCH (09:34)
[2016-05-23] MEDS: Multivitamin With Minerals Tab PO SCH (09:34)
[2016-05-23] MEDS: Divalproex 250 mg DR(BID formulation) PO SCH (16:16)
--- NOTE | 2016-05-24 10:03 | PCM.PYCHPN ---
Psychiatric Progress Note - Psychiatric Progress Note Patient seen today, length of contact: Patient evaluated, case discussed with team, chart reviewed Patient Chief Complaint: "I'm okay" Problems Identified/Issues Discussed: No significant events overnight.. Patient was lying in bed with her john doll, no acute complaints. She was calm overnight with no incidents of aggressive behavior or mood lability. She continues to refuse to have her VPA level taken despite encouragement from the web content writer. Patient denies current side effects to medications. No other acute compliants. She continues to be disoriented to time and location due to anoxic brain damage. Patient has observed to be eating well. Medication Change: No Medical Record Reviewed: Yes Mental Status Examination - Cognitive Function Orientation: Person Memory: Impaired Attention: WNL Concentration: Poor (Poor due to dementia) Association: Loose (Loose due to dementia) Fund of Knowledge: Poor (Poor due to dementia) Decription of patient's judgement and insights: Poor due to dementia - Mood Mood: Neutral - Affect Affect: Broad - Speech Speech: Appropriate - Formal Thought Process Formal Thought Process: Delusions, Loosening of associations Psychotic Thoughts and Behaviors: No AH/VH. +Delusional attachment to her john doll. Also expresses various untrue beliefs about her family. - Suicidal Ideation Suicidal Ideation: No - Homicidal Ideation Homicidal Ideation: No Goal/Treatment Plan - Goal/Treatment Plan Need for Continued Stay: Remain at risks for inpatient hospitalization, Severe functional impairment Progress Toward Problem(s) and Goals/Treatment Plan: Impression: 40 yo female with dementia with behavioral disturbances, due to h/o cardiac arrest and complications related to anoxia Plan: -Individual, group and milieu tx -Will work with court appointed guardian for disposition planning, patient will likely need halfway care upon discharge due to diminished functioning -Continue Depakote 500 mg AM/ 750 mg PO @1700 -Continue Zyprexa 10 mg PO Daily @1700
[2016-05-24] MEDS: Divalproex 500 mg DR(BID formulation) PO SCH (11:56)
[2016-05-24] MEDS: Multivitamin With Minerals Tab PO SCH (11:57)
[2016-05-24] MEDS: Divalproex 250 mg DR(BID formulation) PO SCH (17:57)
--- NOTE | 2016-05-25 09:16 | CP.PCM.PN ---
Subjective - Date & Time of Evaluation Date of Evaluation: 05/25/16 Time of Evaluation: 09:16 - Subjective Subjective: Patient was seen and examined bedside, eating breakfast. Slept well. Calm and cooperative. Objective - Vital Signs/Intake and Output Vital Signs (last 24 hours): Temp Pulse Resp BP Pulse Ox 97.2 F L 55 L 18 90/55 L 05/25/16 05:26 05/25/16 05:26 05/25/16 05:26 05/25/16 05:26 - Medications Medications: Current Medications Apixaban (Eliquis) 2.5 mg PO DAILY [facility] PRN Reason: Protocol Last Admin: 05/24/16 11:57 Dose: 2.5 mg Cholecalciferol (Vitamin D) 1,000 iu PO DAILY [facility] Last Admin: 05/24/16 11:57 Dose: 1,000 iu Divalproex Sodium (Depakote Dr(*Bid*)) 500 mg PO DAILY [facility] Last Admin: 05/24/16 11:56 Dose: 500 mg Divalproex Sodium (Depakote Dr(*Bid*)) 750 mg PO DAILY@1700 [facility] Last Admin: 05/24/16 17:57 Dose: 750 mg Ferrous Sulfate (Feosol) 325 mg PO DAILY [facility] Last Admin: 05/24/16 11:57 Dose: 325 mg Lorazepam (Ativan) 1 mg PO Q4 PRN PRN Reason: Agitation Multivitamins/Minerals (Therapeutic-M Tab) 1 tab PO DAILY [facility] Last Admin: 05/24/16 11:57 Dose: 1 tab Olanzapine (Zyprexa) 10 mg PO DAILY@1700 [facility] Last Admin: 05/24/16 17:58 Dose: 10 mg - Labs Labs: 05/15/16 14:15 - Constitutional Appears: Well, Non-toxic, No Acute Distress - Head Exam Head Exam: NORMAL INSPECTION - Eye Exam Eye Exam: Normal appearance - Respiratory Exam Respiratory Exam: NORMAL BREATHING PATTERN - Neurological Exam Neurological Exam: Awake - Skin Skin Exam: Dry, Intact, Normal Color Assessment and Plan - Assessment and Plan (Free Text) Assessment: 40 year old female with anoxic encephalopathy s/p cardiac arrest. Patient is clinically stable. 1. S/P Cardiac Arrest in 10/2015 -- V-fib secondary to cardiomyopathy. -- Echo EF: ~ 15-20% -- Continue with present management. -Eliquis 2.5mg daily -Amiodarone 200mg PO daily 2. Anoxic encephalopathy with behavior disturbances -- Management per psych
--- NOTE | 2016-05-25 09:41 | PCM.PYCHPN ---
Psychiatric Progress Note - Psychiatric Progress Note Patient seen today, length of contact: Patient evaluated, case discussed with team, chart reviewed Patient Chief Complaint: "I'm okay" Problems Identified/Issues Discussed: Patient was lying in bed with her john doll, no acute complaints. Patient got into a verbal altercation yesterday with another patient, but it was initiated by the other patient that was demanding that she give him the remote control. She was able to calm down afterwards and was not violent or threatening towards others. She continues to refuse to have her VPA level taken despite encouragement from the video game script writer. Patient denies current side effects to medications. No other acute complaints. She continues to be disoriented to time and location due to anoxic brain damage. Patient has observed to be eating well. Medication Change: No Medical Record Reviewed: Yes Mental Status Examination - Cognitive Function Orientation: Person Memory: Impaired Attention: WNL Concentration: Poor (Poor due to dementia) Association: Loose (Loose due to dementia) Fund of Knowledge: Poor (Poor due to dementia) Decription of patient's judgement and insights: Poor insight and limited judgment due to dementia - Mood Mood: Neutral - Affect Affect: Broad - Speech Speech: Appropriate - Formal Thought Process Formal Thought Process: Loosening of associations Psychotic Thoughts and Behaviors: No AH/VH - Suicidal Ideation Suicidal Ideation: No - Homicidal Ideation Homicidal Ideation: No Goal/Treatment Plan - Goal/Treatment Plan Need for Continued Stay: Remain at risks for inpatient hospitalization, Severe functional impairment Progress Toward Problem(s) and Goals/Treatment Plan: Impression: 40 yo female with dementia with behavioral disturbances, due to h/o cardiac arrest and complications related to anoxia Plan: -Individual, group and milieu tx -Will work with court appointed guardian for disposition planning, patient will likely need [facility] care upon discharge due to diminished functioning -Continue Depakote 500 mg AM/ 750 mg PO @1700 -Continue Zyprexa 10 mg PO Daily @1700
[2016-05-25] MEDS: Multivitamin With Minerals Tab PO SCH (10:04)
[2016-05-25] MEDS: Divalproex 500 mg DR(BID formulation) PO SCH (10:04)
[2016-05-25] MEDS: Divalproex 250 mg DR(BID formulation) PO SCH (17:02)
--- NOTE | 2016-05-26 08:34 | PCM.PYCHPN ---
Psychiatric Progress Note - Psychiatric Progress Note Patient seen today, length of contact: Patient evaluated, case discussed with team, chart reviewed Patient Chief Complaint: "I'm good" Problems Identified/Issues Discussed: Patient was lying in bed with her john doll, no acute complaints. No significant events overnight. The patient has been calm and in good behavioral control. Patient denies current side effects to medications. She continues to be disoriented to time and location due to dementia. Patient has observed to be eating well. NO AH/VH/SI/HI. She reports her mood as good. She sleeps well at night. Medication Change: No Medical Record Reviewed: Yes Mental Status Examination - Cognitive Function Orientation: Person Memory: Impaired Attention: WNL Concentration: Poor (Poor due to dementia) Association: Loose (Loose due to dementia) Fund of Knowledge: Poor (Poor due to dementia) Decription of patient's judgement and insights: Poor due to dementia - Mood Mood: Neutral - Affect Affect: Broad - Speech Speech: Appropriate - Formal Thought Process Formal Thought Process: Loosening of associations Psychotic Thoughts and Behaviors: NO AH/VH. - Suicidal Ideation Suicidal Ideation: No - Homicidal Ideation Homicidal Ideation: No Goal/Treatment Plan - Goal/Treatment Plan Need for Continued Stay: Remain at risks for inpatient hospitalization, Severe functional impairment Progress Toward Problem(s) and Goals/Treatment Plan: Impression: 40 yo female with dementia with behavioral disturbances, due to h/o cardiac arrest and complications related to anoxia Plan: -Individual, group and milieu tx -Will work with court appointed guardian for disposition planning, patient will likely need [facility]dc care upon discharge due to diminished functioning -Continue Depakote 500 mg AM/ 750 mg PO @1700 -Continue Zyprexa 10 mg PO Daily @1700
[2016-05-26] MEDS: Divalproex 500 mg DR(BID formulation) PO SCH (08:47)
[2016-05-26] MEDS: Multivitamin With Minerals Tab PO SCH (08:49)
[2016-05-26] MEDS: Divalproex 250 mg DR(BID formulation) PO SCH (16:23)
[2016-05-26 21:52] LABS: AMIODARONE 0.7 mcg/mL (1.5-2.5); DESETHYLAMIODARONE 0.7 mcg/mL (1.5-2.5)
--- NOTE | 2016-05-27 10:51 | PCM.PYCHPN ---
Psychiatric Progress Note - Psychiatric Progress Note Patient seen today, length of contact: Patient evaluated, case discussed with team, chart reviewed Patient Chief Complaint: "I'm good" Problems Identified/Issues Discussed: No significant events overnight. Patient was lying in bed with her john doll, no acute complaints. The patient has been calm and in good behavioral control. Patient denies current side effects to medications. She continues to be disoriented to time and location due to dementia. Patient has observed to be eating well. NO AH/VH/SI/HI. She reports her mood as good. She sleeps well at night. Patient engages in groups and interacts with staff appropriately. Medication Change: No Medical Record Reviewed: Yes Mental Status Examination - Cognitive Function Orientation: Person Memory: Impaired Attention: WNL Concentration: Poor (Poor due to dementia) Association: Loose (Loose due to dementia) Fund of Knowledge: Poor (Poor due to dementia) Decription of patient's judgement and insights: Poor insight due to dementia. Limited judgment. - Mood Mood: Neutral - Affect Affect: Broad - Speech Speech: Appropriate - Formal Thought Process Formal Thought Process: Loosening of associations Psychotic Thoughts and Behaviors: No AH/VH. Has a delusional attachment to her john doll. - Suicidal Ideation Suicidal Ideation: No - Homicidal Ideation Homicidal Ideation: No Goal/Treatment Plan - Goal/Treatment Plan Need for Continued Stay: Remain at risks for inpatient hospitalization, Severe functional impairment Progress Toward Problem(s) and Goals/Treatment Plan: Impression: 40 yo female with dementia with behavioral disturbances, due to h/o cardiac arrest and complications related to anoxia Plan: -Individual, group and milieu tx -Will work with court appointed guardian for disposition planning, patient will likely need fdc care upon discharge due to diminished functioning -Continue Depakote 500 mg AM/ 750 mg PO @1700 -Continue Zyprexa 10 mg PO Daily @1700
[2016-05-27] MEDS: Multivitamin With Minerals Tab PO SCH (10:59)
[2016-05-27] MEDS: Divalproex 500 mg DR(BID formulation) PO SCH (11:00)
[2016-05-27] MEDS: Divalproex 250 mg DR(BID formulation) PO SCH (17:37)
[2016-05-28] MEDS: Divalproex 500 mg DR(BID formulation) PO SCH (08:54)
[2016-05-28] MEDS: Multivitamin With Minerals Tab PO SCH (08:55)
--- NOTE | 2016-05-28 09:55 | PCM.PYCHPN ---
Psychiatric Progress Note - Psychiatric Progress Note Patient seen today, length of contact: Patient evaluated, case discussed with team, chart reviewed Patient Chief Complaint: "I'm good" Problems Identified/Issues Discussed: No significant events overnight. Patient was sitting with her john doll, no acute complaints. The patient has been calm and in good behavioral control. Patient denies current side effects to medications. She continues to be disoriented to time and location due to dementia. Patient has observed to be eating well. NO AH/VH/SI/HI. She reports her mood as good. She sleeps well at night. Patient engages in groups and interacts with staff appropriately. Medication Change: No Medical Record Reviewed: Yes Mental Status Examination - Cognitive Function Orientation: Person Memory: Impaired Attention: WNL Concentration: Poor (Poor due to dementia) Association: Loose (Loose due to dementia) Fund of Knowledge: Poor (Poor due to dementia) Decription of patient's judgement and insights: Limited due to dementia - Mood Mood: Neutral - Affect Affect: Broad - Speech Speech: Appropriate - Formal Thought Process Formal Thought Process: Loosening of associations - Suicidal Ideation Suicidal Ideation: No - Homicidal Ideation Homicidal Ideation: No Goal/Treatment Plan - Goal/Treatment Plan Need for Continued Stay: Remain at risks for inpatient hospitalization, Severe functional impairment Progress Toward Problem(s) and Goals/Treatment Plan: Impression: 40 yo female with dementia with behavioral disturbances, due to h/o cardiac arrest and complications related to anoxia Plan: -Individual, group and milieu tx -Will work with court appointed guardian for disposition planning, patient will likely need senior care care upon discharge due to diminished functioning -Continue Depakote 500 mg AM/ 750 mg PO @1700 -Continue Zyprexa 10 mg PO Daily @1700
[2016-05-28] MEDS: Divalproex 250 mg DR(BID formulation) PO SCH (16:43)
--- NOTE | 2016-05-29 08:56 | CP.PCM.PN ---
Subjective - Date & Time of Evaluation Date of Evaluation: 05/29/16 Time of Evaluation: 08:54 - Subjective Subjective: Patient lying in bed sleeping with her Joseph doll. Resting comfortably. Staff tried to awaken patient for breakfast. She wanted to continue sleeping. No acute events overnight. Objective - Vital Signs/Intake and Output Vital Signs (last 24 hours): Temp Pulse Resp BP Pulse Ox 97.8 F 74 18 108/70 05/29/16 06:00 05/29/16 06:00 05/29/16 06:00 05/29/16 06:00 - Medications Medications: Current Medications Amiodarone HCl (Cordarone) 200 mg PO DAILY [facility] Last Admin: 05/28/16 13:39 Dose: 200 mg Apixaban (Eliquis) 2.5 mg PO DAILY [facility] PRN Reason: Protocol Last Admin: 05/28/16 08:54 Dose: 2.5 mg Cholecalciferol (Vitamin D) 1,000 iu PO DAILY [facility] Last Admin: 05/28/16 08:55 Dose: 1,000 iu Divalproex Sodium (Depakote Dr(*Bid*)) 500 mg PO DAILY [facility] Last Admin: 05/28/16 08:54 Dose: 500 mg Divalproex Sodium (Depakote Dr(*Bid*)) 750 mg PO DAILY@1700 [facility] Last Admin: 05/28/16 16:43 Dose: 750 mg Ferrous Sulfate (Feosol) 325 mg PO DAILY [facility] Last Admin: 05/28/16 08:54 Dose: 325 mg Lorazepam (Ativan) 1 mg PO Q4 PRN PRN Reason: Agitation Multivitamins/Minerals (Therapeutic-M Tab) 1 tab PO DAILY [facility] Last Admin: 05/28/16 08:55 Dose: 1 tab Olanzapine (Zyprexa) 10 mg PO DAILY@1700 [facility] Last Admin: 05/28/16 16:44 Dose: 10 mg - Labs Labs: 05/15/16 14:15 - Constitutional Appears: Well, No Acute Distress - ENT Exam ENT Exam: Mucous Membranes Moist - Respiratory Exam Respiratory Exam: NORMAL BREATHING PATTERN - Neurological Exam Additional comments: sleeping comfortably - Skin Skin Exam: Dry, Intact, Normal Color Assessment and Plan - Assessment and Plan (Free Text) Assessment: 40 year old female with anoxic encephalopathy s/p cardiac arrest. Patient is clinically stable. 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 - V-fib secondary to cardiomyopathy. -- Echo EF: ~ 15-20% -- Continue with present management. -Eliquis 2.5mg daily -Amiodarone 200mg PO daily
--- NOTE | 2016-05-29 09:47 | PCM.PYCHPN ---
Psychiatric Progress Note - Psychiatric Progress Note Patient seen today, length of contact: Patient evaluated, case discussed with team, chart reviewed Patient Chief Complaint: "I'm good" Problems Identified/Issues Discussed: No significant events overnight. The patient has been calm and in good behavioral control. Patient denies current side effects to medications. She continues to be disoriented to time and location due to dementia. Patient has observed to be eating well. NO AH/VH/SI/HI. She reports her mood as good. She sleeps well at night. Patient engages in groups and interacts with staff appropriately. Medication Change: No Medical Record Reviewed: Yes Mental Status Examination - Cognitive Function Orientation: Person Memory: Impaired Attention: WNL Concentration: Poor (Poor due to dementia) Association: Loose (Loose due to dementia) Fund of Knowledge: Poor (Poor due to dementia) Decription of patient's judgement and insights: Limited due to dementia, but the patient has been in good behavioral control - Mood Mood: Neutral - Affect Affect: Broad - Speech Speech: Appropriate - Formal Thought Process Formal Thought Process: Loosening of associations Psychotic Thoughts and Behaviors: NO AH/VH, but continues to have delusional attachment to her john doll - Suicidal Ideation Suicidal Ideation: No - Homicidal Ideation Homicidal Ideation: No Goal/Treatment Plan - Goal/Treatment Plan Need for Continued Stay: Remain at risks for inpatient hospitalization, Severe functional impairment Progress Toward Problem(s) and Goals/Treatment Plan: Impression: 40 yo female with dementia with behavioral disturbances, due to h/o cardiac arrest and complications related to anoxia Plan: -Individual, group and milieu tx -Will work with court appointed guardian for disposition planning, patient will likely need penitentiary care upon discharge due to diminished functioning -Continue Depakote 500 mg AM/ 750 mg PO @1700 -Continue Zyprexa 10 mg PO Daily @1700
[2016-05-29] MEDS: Multivitamin With Minerals Tab PO SCH (11:10)
[2016-05-29] MEDS: Divalproex 500 mg DR(BID formulation) PO SCH (11:10)
[2016-05-29] MEDS: Divalproex 250 mg DR(BID formulation) PO SCH (17:51)
[2016-05-30] MEDS: Divalproex 500 mg DR(BID formulation) PO SCH (08:51)
[2016-05-30] MEDS: Multivitamin With Minerals Tab PO SCH (08:51)
[2016-05-30] MEDS: Divalproex 250 mg DR(BID formulation) PO SCH (16:38)
--- NOTE | 2016-05-30 20:01 | PCM.PYCHPN ---
Psychiatric Progress Note - Psychiatric Progress Note Patient seen today, length of contact: Patient evaluated, case discussed with team, chart reviewed Patient Chief Complaint: denies acute pain, smiles inappropriately at times, staff report pt is child like at times, is adherent with medications , carries stuffed animal believing the stuffed animal is her child, pt is pending placement ?ability to care for self Problems Identified/Issues Discussed: impaired cognitive function impaired self care Medical Problems: per chart Diagnostic Results: per psychiatry per medicine per nursing per social work per recreational therapy Medication Change: No Medical Record Reviewed: Yes Mental Status Examination - Cognitive Function Orientation: Person, Situation Memory: Impaired Attention: WNL Concentration: Poor (Poor due to dementia) Association: Loose (Loose due to dementia) Fund of Knowledge: Poor (Poor due to dementia) Decription of patient's judgement and insights: poor - Mood Mood: Neutral - Affect Affect: Broad - Speech Speech: Appropriate - Formal Thought Process Formal Thought Process: Loosening of associations Psychotic Thoughts and Behaviors: delusions - Suicidal Ideation Suicidal Ideation: No - Homicidal Ideation Homicidal Ideation: No Goal/Treatment Plan - Goal/Treatment Plan Need for Continued Stay: Remain at risks for inpatient hospitalization, Severe functional impairment Progress Toward Problem(s) and Goals/Treatment Plan: inpt milieu adjust meds per status q 15min rounds and per clinical status Nursing support with adls discharge planning progress Estimated Date of D/C: 06/03/16 - Smoking Cessation Smoking Cessation Initiated: No Reason for not providing: defers
[2016-05-31] MEDS: Divalproex 500 mg DR(BID formulation) PO SCH (08:55)
[2016-05-31] MEDS: Multivitamin With Minerals Tab PO SCH (08:57)
--- NOTE | 2016-05-31 11:40 | PCM.PYCHPN ---
Psychiatric Progress Note - Psychiatric Progress Note Patient seen today, length of contact: Patient evaluated, case discussed with team, chart reviewed Patient Chief Complaint: this commercial lines underwriter was met by pt at the unit entrance door. did not leave/was unable to. reports want to leave with her "child" child is "a stuffed animal carried in er arms". States she wants to : go live in the mayor's house in [place] because that is where her is living". was redirected to sit near nursing unit desk. initially states who are you to give me this sermon -that is where my is i something to do with my son (stuffed animal). is redirected and forgets. staff states pt is adherent with rx, does require frequent redirection related to today's behavior trying to leave unit. Problems Identified/Issues Discussed: impaired cognitive function impaired self care delusional disorder history of medical issues multiple substance use history intubation, anoxia Medical Problems: per chart Diagnostic Results: per psychiatry per medicine per nursing per social work per recreational therapy DSM 5 Symptoms Update: impaired cognitive function impaired self care impaired safety pt hs POA Medication Change: No Medical Record Reviewed: Yes Consults ordered or reviewed: reviewed Mental Status Examination - Cognitive Function Orientation: Person, Situation Memory: Impaired Attention: WNL Concentration: Poor (Poor due to dementia) Association: Loose (Loose due to dementia) Fund of Knowledge: Poor (Poor due to dementia) Decription of patient's judgement and insights: poor Addtional comments: irritable - Mood Mood: Anxious, Neutral - Affect Affect: Broad - Speech Speech: Appropriate - Formal Thought Process Formal Thought Process: Delusions, Paranoia (fixed delusion stuffed animal is "her son".), Loosening of associations Psychotic Thoughts and Behaviors: paranoid delusional confused - Suicidal Ideation Suicidal Ideation: No - Homicidal Ideation Homicidal Ideation: No Goal/Treatment Plan - Goal/Treatment Plan Need for Continued Stay: Remain at risks for inpatient hospitalization, Severe functional impairment Progress Toward Problem(s) and Goals/Treatment Plan: inpt milieu adjust meds per status q 15min rounds and per clinical status Nursing support with adls supportive redirection related to delusion therapeutic confrontation discharge planning progress dedicated intermodal truck driver assistance Estimated Date of D/C: 06/08/16 - Smoking Cessation Smoking Cessation Initiated: No Reason for not providing: deferred
[2016-05-31] MEDS: Divalproex 250 mg DR(BID formulation) PO SCH (17:33)
[2016-05-31] MEDS ORDERED: DiphenhydrAMINE 50 mg/ml Inj ONE (19:01)
[2016-05-31] MEDS ORDERED: DiphenhydrAMINE 50 mg/ml Inj IM STA (19:07)
[2016-06-01] MEDS ORDERED: DiphenhydrAMINE 50 mg/ml Inj IM PRN (13:05)
--- NOTE | 2016-06-01 13:08 | PCM.PYCHPN ---
Psychiatric Progress Note - Psychiatric Progress Note Patient seen today, length of contact: Patient evaluated, case discussed with team, chart reviewed Patient Chief Complaint: "I'm okay" Problems Identified/Issues Discussed: Patient became very agitated yesterday and IM Haldol/Ativan/Benadryl were given for agitation. She was demanding to leave the unit due to delusional beliefs. Patient is now calmer but has been sleeping most of the day likely due to the medication she received yesterday. No significant events today. NO AH/VH/SI/ HI. Patient has a history of being calm for several weeks/months and then having intermittent episodes of agitation. Medication Change: No Medical Record Reviewed: Yes Mental Status Examination - Cognitive Function Orientation: Person, Situation Memory: Impaired Attention: WNL Concentration: Poor (Poor due to dementia) Association: Loose (Loose due to dementia) Fund of Knowledge: Poor (Poor due to dementia) Decription of patient's judgement and insights: Poor - Mood Mood: Neutral - Affect Affect: Broad - Speech Speech: Appropriate - Formal Thought Process Formal Thought Process: Delusions, Loosening of associations - Suicidal Ideation Suicidal Ideation: No - Homicidal Ideation Homicidal Ideation: No Goal/Treatment Plan - Goal/Treatment Plan Need for Continued Stay: Remain at risks for inpatient hospitalization, Severe functional impairment Progress Toward Problem(s) and Goals/Treatment Plan: Impression: 40 yo female with dementia with behavioral disturbances, due to h/o cardiac arrest and complications related to anoxia. Patient was acutely agitated yesterday requiring PRN medications. She is currently calm and sleeping for most of the day. Will continue to monitor the patient to determine if her medications need to be titrated up. Plan: -Individual, group and milieu tx -Will work with court appointed guardian for disposition planning, patient will likely need shelter care upon discharge due to diminished functioning -Continue Depakote 500 mg AM/ 750 mg PO @1700 -Continue Zyprexa 10 mg PO Daily @1700 Estimated Date of D/C: 06/08/16
[2016-06-01] MEDS: Multivitamin With Minerals Tab PO SCH (13:30)
[2016-06-01] MEDS: Divalproex 500 mg DR(BID formulation) PO SCH (13:33)
[2016-06-01] MEDS: Divalproex 250 mg DR(BID formulation) PO SCH (19:24)
--- NOTE | 2016-06-02 07:43 | CP.PCM.PN ---
Subjective - Date & Time of Evaluation Date of Evaluation: 06/02/16 Time of Evaluation: 07:30 - Subjective Subjective: 40 y/o F seen at bedside comfortable in bed, awake, talkative. She states feeling ok. Spent night uneventful, 2 days ago patient became very agitated that resolved after medication administration. No changes in urination or stools. Objective - Vital Signs/Intake and Output Vital Signs (last 24 hours): Temp Pulse Resp BP Pulse Ox 98 F 88 18 110/78 06/02/16 05:38 06/02/16 05:38 06/02/16 05:38 06/02/16 05:38 - Medications Medications: Current Medications Amiodarone HCl (Cordarone) 200 mg PO DAILY [facility] Last Admin: 06/01/16 13:30 Dose: 200 mg Apixaban (Eliquis) 2.5 mg PO DAILY [facility] PRN Reason: Protocol Last Admin: 06/01/16 13:33 Dose: 2.5 mg Cholecalciferol (Vitamin D) 1,000 iu PO DAILY [facility] Last Admin: 06/01/16 13:34 Dose: 1,000 iu Diphenhydramine HCl (Benadryl) 50 mg PO Q12 PRN PRN Reason: Agitation Diphenhydramine HCl (Benadryl) 50 mg IM Q12 PRN PRN Reason: Agitation Divalproex Sodium (Depakote Dr(*Bid*)) 500 mg PO DAILY [facility] Last Admin: 06/01/16 13:33 Dose: 500 mg Divalproex Sodium (Depakote Dr(*Bid*)) 750 mg PO DAILY@1700 [facility] Last Admin: 06/01/16 19:24 Dose: 750 mg Ferrous Sulfate (Feosol) 325 mg PO DAILY [facility] Last Admin: 06/01/16 13:34 Dose: 325 mg Haloperidol (Haldol) 5 mg PO Q12 PRN PRN Reason: Agitation Haloperidol Lactate (Haldol) 5 mg IM Q12 PRN PRN Reason: Agitation Lorazepam (Ativan) 1 mg PO Q4 PRN PRN Reason: Agitation Last Admin: 05/31/16 09:16 Dose: 1 mg Lorazepam (Ativan) 2 mg IM Q12 PRN PRN Reason: Agitation Multivitamins/Minerals (Therapeutic-M Tab) 1 tab PO DAILY [facility] Last Admin: 06/01/16 13:30 Dose: 1 tab Olanzapine (Zyprexa) 10 mg PO DAILY@1700 [facility] Last Admin: 06/01/16 19:24 Dose: 10 mg - Labs Labs: 05/15/16 14:15 - Constitutional Appears: No Acute Distress - Head Exam Head Exam: ATRAUMATIC, NORMAL INSPECTION - Eye Exam Eye Exam: EOMI, Normal appearance, PERRL - ENT Exam ENT Exam: Mucous Membranes Moist - Respiratory Exam Respiratory Exam: Clear to Ausculation Bilateral, NORMAL BREATHING PATTERN - Cardiovascular Exam Cardiovascular Exam: REGULAR RHYTHM, +S1, +S2 - GI/Abdominal Exam GI & Abdominal Exam: Soft, Normal Bowel Sounds - Extremities Exam Extremities Exam: Full ROM - Neurological Exam Neurological Exam: Alert, Awake. 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 Patient is clinically stable. 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 -S/P V-fib secondary to cardiomyopathy. -- Echo EF: ~ 15-20% -- Continue with present management. -Eliquis 2.5mg daily -Amiodarone 200mg PO daily -F/U CBC/BMP
--- NOTE | 2016-06-02 10:03 | PCM.PYCHPN ---
Psychiatric Progress Note - Psychiatric Progress Note Patient seen today, length of contact: Patient evaluated, case discussed with team, chart reviewed Patient Chief Complaint: "I'm okay" Problems Identified/Issues Discussed: Patient was calm overnight and this morning. No significant events or complaints. Patient has been in better behavioral control since her episode of agitation on Wednesday. She does not recall the period of agitation. She has been observed to be eating and sleeping well. NO AH/VH/SI/HI. She is only oriented to self as per her baseline. Medication Change: No Medical Record Reviewed: Yes Mental Status Examination - Cognitive Function Orientation: Person, Situation Memory: Impaired Attention: WNL Concentration: Poor (Poor due to dementia) Association: Loose (Loose due to dementia) Fund of Knowledge: Poor (Poor due to dementia) Decription of patient's judgement and insights: Limited due to dementia - Mood Mood: Neutral - Affect Affect: Broad - Speech Speech: Appropriate - Formal Thought Process Formal Thought Process: Delusions, Loosening of associations Psychotic Thoughts and Behaviors: NO AH/VH. - Suicidal Ideation Suicidal Ideation: No - Homicidal Ideation Homicidal Ideation: No Goal/Treatment Plan - Goal/Treatment Plan Need for Continued Stay: Remain at risks for inpatient hospitalization, Severe functional impairment Progress Toward Problem(s) and Goals/Treatment Plan: Impression: 40 yo female with dementia with behavioral disturbances, due to h/o cardiac arrest and complications related to anoxia. Patient now calmer since recent episode of agitation which she does not currently recall. Will not titrate her medications at this time, but will continue to monitor her for symptoms. Plan: -Individual, group and milieu tx -Will work with court appointed guardian for disposition planning, patient will likely need fdc care upon discharge due to diminished functioning -Continue Depakote 500 mg AM/ 750 mg PO @1700 -Continue Zyprexa 10 mg PO Daily @1700 Estimated Date of D/C: 06/08/16
[2016-06-02] MEDS: Divalproex 500 mg DR(BID formulation) PO SCH (13:21)
[2016-06-02] MEDS: Multivitamin With Minerals Tab PO SCH (13:23)
[2016-06-02] MEDS: Divalproex 250 mg DR(BID formulation) PO SCH (16:47)
[2016-06-03] MEDS: Divalproex 500 mg DR(BID formulation) PO SCH (08:47)
[2016-06-03] MEDS: Multivitamin With Minerals Tab PO SCH (08:47)
--- NOTE | 2016-06-03 09:41 | PCM.PYCHPN ---
Psychiatric Progress Note - Psychiatric Progress Note Patient seen today, length of contact: Patient evaluated, case discussed with team, chart reviewed Patient Chief Complaint: "I'm okay" Problems Identified/Issues Discussed: Patient was calm overnight and this morning. No significant events or complaints. Patient has been in better behavioral control since her episode of agitation on Wednesday. She is observed walking around with her john doll. She continues to have poor hygiene and was encouraged to take a shower, patient stated that she would think about it. She has been observed to be eating and sleeping well. NO AH/VH/SI/HI. She is only oriented to self as per her baseline. Medication Change: No Medical Record Reviewed: Yes Mental Status Examination - Cognitive Function Orientation: Person, Situation Memory: Impaired Attention: WNL Concentration: Poor (Poor due to dementia) Association: Loose (Loose due to dementia) Fund of Knowledge: Poor (Poor due to dementia) Decription of patient's judgement and insights: Limited due to dementia - Mood Mood: Neutral - Affect Affect: Broad - Speech Speech: Appropriate - Formal Thought Process Formal Thought Process: Delusions, Loosening of associations Psychotic Thoughts and Behaviors: +Delusional attachment to her john doll - Suicidal Ideation Suicidal Ideation: No - Homicidal Ideation Homicidal Ideation: No Goal/Treatment Plan - Goal/Treatment Plan Need for Continued Stay: Remain at risks for inpatient hospitalization, Severe functional impairment Progress Toward Problem(s) and Goals/Treatment Plan: Impression: 40 yo female with dementia with behavioral disturbances, due to h/o cardiac arrest and complications related to anoxia. Patient now calmer since recent episode of agitation which she does not currently recall. Will not titrate her medications at this time, but will continue to monitor her for symptoms. Plan: -Individual, group and milieu tx -Will work with court appointed guardian for disposition planning, patient will likely need penitentiary care upon discharge due to diminished functioning -Continue Depakote 500 mg AM/ 750 mg PO @1700 -Continue Zyprexa 10 mg PO Daily @1700 Estimated Date of D/C: 06/08/16
[2016-06-03 10:23] LABS: MEAN CELL VOLUME 87.7 fl (81.0-99.0); MEAN CORPUSCULAR HEMOGLOBIN 29.2 pg (27.0-31.0); MEAN CORPUSCULAR HGB CONC 33.3 g/dL (33.0-37.0); RED CELL DISTRIBUTION WIDTH 13.3 % (11.5-14.5); WHITE BLOOD COUNT 4.6 K/uL (4.8-10.8)
[2016-06-03 10:35] LABS: BLOOD UREA NITROGEN 21 mg/dl (7-17); CARBON DIOXIDE 26 mmol/L (22-30); CHLORIDE 103 mmol/L (98-107); GFR AFRICAN-AMERICAN > 60; GLUCOSE,RANDOM 96 mg/dL (65-105); SODIUM 143 mmol/l (132-148)
[2016-06-03] MEDS: Divalproex 250 mg DR(BID formulation) PO SCH (17:57)
--- NOTE | 2016-06-04 07:36 | CP.PCM.PN ---
Subjective - Date & Time of Evaluation Date of Evaluation: 06/04/16 Time of Evaluation: 07:20 - Subjective Subjective: 40 y/o F seen at bedside comfortable in bed, no acute distress. Patient spent night uneventful. No new episodes of agitation. Cont tolerating PO regular diet. No changes in urination or stools. Lab work reviewed Objective - Vital Signs/Intake and Output Vital Signs (last 24 hours): Temp Pulse Resp BP Pulse Ox 97.2 F L 73 20 148/76 06/04/16 06:00 06/04/16 06:00 06/04/16 06:00 06/04/16 06:00 - Medications Medications: Current Medications Amiodarone HCl (Cordarone) 200 mg PO DAILY [facility] Last Admin: 06/03/16 08:49 Dose: 200 mg Apixaban (Eliquis) 2.5 mg PO DAILY [facility] PRN Reason: Protocol Last Admin: 06/03/16 08:47 Dose: 2.5 mg Cholecalciferol (Vitamin D) 1,000 iu PO DAILY [facility] Last Admin: 06/03/16 08:47 Dose: 1,000 iu Diphenhydramine HCl (Benadryl) 50 mg PO Q12 PRN PRN Reason: Agitation Diphenhydramine HCl (Benadryl) 50 mg IM Q12 PRN PRN Reason: Agitation Divalproex Sodium (Depakote Dr(*Bid*)) 500 mg PO DAILY [facility] Last Admin: 06/03/16 08:47 Dose: 500 mg Divalproex Sodium (Depakote Dr(*Bid*)) 750 mg PO DAILY@1700 [facility] Last Admin: 06/03/16 17:57 Dose: 750 mg Ferrous Sulfate (Feosol) 325 mg PO DAILY [facility] Last Admin: 06/03/16 08:47 Dose: 325 mg Haloperidol (Haldol) 5 mg PO Q12 PRN PRN Reason: Agitation Haloperidol Lactate (Haldol) 5 mg IM Q12 PRN PRN Reason: Agitation Lorazepam (Ativan) 1 mg PO Q4 PRN PRN Reason: Agitation Last Admin: 05/31/16 09:16 Dose: 1 mg Lorazepam (Ativan) 2 mg IM Q12 PRN PRN Reason: Agitation Multivitamins/Minerals (Therapeutic-M Tab) 1 tab PO DAILY [facility] Last Admin: 06/03/16 08:47 Dose: 1 tab Olanzapine (Zyprexa) 10 mg PO DAILY@1700 [facility] Last Admin: 06/03/16 17:57 Dose: 10 mg - Labs Labs: 06/03/16 10:02 06/03/16 10:02 - Constitutional Appears: No Acute Distress - Head Exam Head Exam: ATRAUMATIC, NORMAL INSPECTION - Eye Exam Eye Exam: EOMI, PERRL - ENT Exam ENT Exam: Mucous Membranes Moist - Respiratory Exam Respiratory Exam: Clear to Ausculation Bilateral, NORMAL BREATHING PATTERN - Cardiovascular Exam Cardiovascular Exam: RRR, +S1, +S2. absent: Murmur - GI/Abdominal Exam GI & Abdominal Exam: Soft, Normal Bowel Sounds - Neurological Exam Neurological Exam: Alert, Awake. 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 Patient is clinically stable. 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 -S/P V-fib secondary to cardiomyopathy. -- Echo EF: ~ 15-20% -- Continue with present management. -Eliquis 2.5mg daily -Amiodarone 200mg PO daily(last TSH 01/2016) -CBC WNL. BUN mildly elevated. Creatinine WNL.
--- NOTE | 2016-06-04 08:39 | PCM.PYCHPN ---
Psychiatric Progress Note - Psychiatric Progress Note Patient seen today, length of contact: Patient evaluated, case discussed with team, chart reviewed Patient Chief Complaint: "I'm good" Problems Identified/Issues Discussed: Patient was calm overnight and this morning. No significant events or complaints. Patient has been in better behavioral control since her episode of agitation on Wednesday. She is observed lying in bed with her john doll. She was encouraged to take a shower and engage in groups in the community. She has been observed to be eating and sleeping well. NO AH/VH/SI/HI. She is only oriented to self as per her baseline. Medication Change: No Medical Record Reviewed: Yes Mental Status Examination - Cognitive Function Orientation: Person, Situation Memory: Impaired Attention: WNL Concentration: Poor (Poor due to dementia) Association: Loose (Loose due to dementia) Fund of Knowledge: Poor (Poor due to dementia) Decription of patient's judgement and insights: Limited insight and judgment due to dementia - Mood Mood: Neutral - Affect Affect: Broad - Speech Speech: Appropriate - Formal Thought Process Formal Thought Process: Delusions, Loosening of associations Psychotic Thoughts and Behaviors: No AH/VH. +Delusional attachment to her john doll and various other beliefs that fluctuate, like her family is coming to visit her - Suicidal Ideation Suicidal Ideation: No - Homicidal Ideation Homicidal Ideation: No Goal/Treatment Plan - Goal/Treatment Plan Need for Continued Stay: Remain at risks for inpatient hospitalization, Severe functional impairment Progress Toward Problem(s) and Goals/Treatment Plan: Impression: 40 yo female with dementia with behavioral disturbances, due to h/o cardiac arrest and complications related to anoxia. Patient now calmer since recent episode of agitation which she does not currently recall. Will not titrate her medications at this time, but will continue to monitor her for symptoms. Plan: -Individual, group and milieu tx -Will work with court appointed guardian for disposition planning, patient will likely need skilled nursing care upon discharge due to diminished functioning -Continue Depakote 500 mg AM/ 750 mg PO @1700 -Continue Zyprexa 10 mg PO Daily @1700 Estimated Date of D/C: 06/08/16
[2016-06-04] MEDS: Multivitamin With Minerals Tab PO SCH (10:18)
[2016-06-04] MEDS: Divalproex 500 mg DR(BID formulation) PO SCH (10:21)
[2016-06-04] MEDS: Divalproex 250 mg DR(BID formulation) PO SCH (17:23)
--- NOTE | 2016-06-05 08:34 | PCM.PYCHPN ---
Psychiatric Progress Note - Psychiatric Progress Note Patient seen today, length of contact: Patient evaluated, case discussed with team, chart reviewed Patient Chief Complaint: "I'm good" Problems Identified/Issues Discussed: Patient was calm overnight and this morning. No significant events or complaints. She is observed lying in bed with her john doll. She was encouraged to take a shower and engage in groups in the community. She has been observed to be eating and sleeping well. NO AH/VH/SI/HI. She is only oriented to self as per her baseline. Medication Change: No Medical Record Reviewed: Yes Mental Status Examination - Cognitive Function Orientation: Person, Situation Memory: Impaired Attention: WNL Concentration: Poor (Poor due to dementia) Association: Loose (Loose due to dementia) Fund of Knowledge: Poor (Poor due to dementia) Decription of patient's judgement and insights: Limited due to dementia - Mood Mood: Neutral - Affect Affect: Broad - Speech Speech: Appropriate - Formal Thought Process Formal Thought Process: Delusions, Loosening of associations Psychotic Thoughts and Behaviors: No AH/VH. + Delusional attachment to her john doll - Suicidal Ideation Suicidal Ideation: No - Homicidal Ideation Homicidal Ideation: No Goal/Treatment Plan - Goal/Treatment Plan Need for Continued Stay: Remain at risks for inpatient hospitalization, Severe functional impairment Progress Toward Problem(s) and Goals/Treatment Plan: Impression: 40 yo female with dementia with behavioral disturbances, due to h/o cardiac arrest and complications related to anoxia. Plan: -Individual, group and milieu tx -Will work with court appointed guardian for disposition planning, patient will likely need [facility] upon discharge due to diminished functioning -Continue Depakote 500 mg AM/ 750 mg PO @1700 -Continue Zyprexa 10 mg PO Daily @1700 Estimated Date of D/C: 06/12/16
[2016-06-05] MEDS: Multivitamin With Minerals Tab PO SCH (09:33)
[2016-06-05] MEDS: Divalproex 500 mg DR(BID formulation) PO SCH (13:13)
[2016-06-05] MEDS: Divalproex 250 mg DR(BID formulation) PO SCH (16:30)
--- NOTE | 2016-06-06 10:33 | PCM.PYCHPN ---
Psychiatric Progress Note - Psychiatric Progress Note Patient seen today, length of contact: Patient evaluated, case discussed with team, chart reviewed Patient Chief Complaint: pt has remained intermittently irritible and still confused and disoriented and need redirection Medication Change: No Medical Record Reviewed: Yes Mental Status Examination - Cognitive Function Orientation: Person, Situation Memory: Impaired Attention: WNL Concentration: Poor (Poor due to dementia) Association: Loose (Loose due to dementia) Fund of Knowledge: Poor (Poor due to dementia) - Mood Mood: Neutral - Affect Affect: Broad - Speech Speech: Appropriate - Formal Thought Process Formal Thought Process: Delusions, Loosening of associations - Suicidal Ideation Suicidal Ideation: No - Homicidal Ideation Homicidal Ideation: No Goal/Treatment Plan - Goal/Treatment Plan Need for Continued Stay: Remain at risks for inpatient hospitalization, Severe functional impairment Progress Toward Problem(s) and Goals/Treatment Plan: will continue to titrate meds as regimen and engage pt in behavior plan on unit. Estimated Date of D/C: 06/12/16
[2016-06-06] MEDS: Divalproex 500 mg DR(BID formulation) PO SCH (15:44)
[2016-06-06] MEDS: Multivitamin With Minerals Tab PO SCH (15:45)
[2016-06-06] MEDS: Divalproex 250 mg DR(BID formulation) PO SCH (21:00)
[2016-06-07] MEDS: Multivitamin With Minerals Tab PO SCH (11:32)
[2016-06-07] MEDS: Divalproex 500 mg DR(BID formulation) PO SCH (11:33)
[2016-06-07] MEDS: Divalproex 250 mg DR(BID formulation) PO SCH (16:54)
--- NOTE | 2016-06-08 07:37 | CP.PCM.PN ---
Subjective - Date & Time of Evaluation Date of Evaluation: 06/08/16 Time of Evaluation: 07:05 - Subjective Subjective: 40 y/o F seen at bedside comfortable in bed. No new episodes of agitation reported over the weekend. She remains irritable at times. No changes in urination or stools. No CP, SOB, fever, vomiting. Objective - Vital Signs/Intake and Output Vital Signs (last 24 hours): Temp Pulse Resp BP Pulse Ox 98.2 F 61 18 120/58 L 06/08/16 06:00 06/08/16 06:00 06/08/16 06:00 06/08/16 06:00 - Medications Medications: Current Medications Amiodarone HCl (Cordarone) 200 mg PO DAILY [facility] Last Admin: 06/07/16 11:33 Dose: 200 mg Apixaban (Eliquis) 2.5 mg PO DAILY [facility] PRN Reason: Protocol Last Admin: 06/07/16 11:32 Dose: 2.5 mg Cholecalciferol (Vitamin D) 1,000 iu PO DAILY [facility] Last Admin: 06/07/16 11:33 Dose: 1,000 iu Diphenhydramine HCl (Benadryl) 50 mg PO Q12 PRN PRN Reason: Agitation Last Admin: 06/05/16 19:30 Dose: 50 mg Diphenhydramine HCl (Benadryl) 50 mg IM Q12 PRN PRN Reason: Agitation Divalproex Sodium (Depakote Dr(*Bid*)) 500 mg PO DAILY [facility] Last Admin: 06/07/16 11:33 Dose: 500 mg Divalproex Sodium (Depakote Dr(*Bid*)) 750 mg PO DAILY@1700 [facility] Last Admin: 06/07/16 16:54 Dose: 750 mg Ferrous Sulfate (Feosol) 325 mg PO DAILY [facility] Last Admin: 06/07/16 11:32 Dose: 325 mg Haloperidol (Haldol) 5 mg PO Q12 PRN PRN Reason: Agitation Haloperidol Lactate (Haldol) 5 mg IM Q12 PRN PRN Reason: Agitation Lorazepam (Ativan) 1 mg PO Q4 PRN PRN Reason: Agitation Last Admin: 06/05/16 19:30 Dose: 1 mg Lorazepam (Ativan) 2 mg IM Q12 PRN PRN Reason: Agitation Multivitamins/Minerals (Therapeutic-M Tab) 1 tab PO DAILY [facility] Last Admin: 06/07/16 11:32 Dose: 1 tab Olanzapine (Zyprexa) 10 mg PO DAILY@1700 [facility] Last Admin: 06/07/16 16:54 Dose: 10 mg - Labs Labs: 06/03/16 10:02 06/03/16 10:02 - Constitutional Appears: No Acute Distress, Confused - Head Exam Head Exam: ATRAUMATIC, NORMAL INSPECTION - Eye Exam Eye Exam: EOMI, PERRL - ENT Exam ENT Exam: Mucous Membranes Moist, Normal Exam - Neck Exam Neck Exam: Full ROM - Respiratory Exam Respiratory Exam: Clear to Ausculation Bilateral, NORMAL BREATHING PATTERN - Cardiovascular Exam Cardiovascular Exam: REGULAR RHYTHM. absent: Bradycardia, Tachycardia - GI/Abdominal Exam GI & Abdominal Exam: Soft, Normal Bowel Sounds - Extremities Exam Extremities Exam: Full ROM, Normal Inspection - Neurological Exam Neurological Exam: Alert. absent: Oriented x3 - Psychiatric Exam Psychiatric exam: Agitated (irritable at times.) Assessment and Plan - Assessment and Plan (Free Text) Assessment: 40 year old female with anoxic encephalopathy s/p cardiac arrest. Patient is clinically stable. 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 -S/P V-fib secondary to cardiomyopathy. -- Echo EF: ~ 15-20% -- Continue with present management. -Eliquis 2.5mg daily -Amiodarone 200mg PO daily(last TSH 01/2016, repeat 07/2016)
--- NOTE | 2016-06-08 07:59 | PCM.PYCHPN ---
Psychiatric Progress Note - Psychiatric Progress Note Patient seen today, length of contact: Patient evaluated, case discussed with team, chart reviewed Patient Chief Complaint: "I'm sad." Problems Identified/Issues Discussed: No significant events over the weekend. Patient reports that she is feeling sad because she believes that her friend's infant child . She has no other acute complaints. She has been observed to be eating and sleeping well. NO AH/ VH/SI/HI. She is only oriented to self as per her baseline. Medication Change: No Medical Record Reviewed: Yes Mental Status Examination - Cognitive Function Orientation: Person, Situation Memory: Impaired Attention: WNL Concentration: Poor (Poor due to dementia) Association: Loose (Loose due to dementia) Fund of Knowledge: Poor (Poor due to dementia) Decription of patient's judgement and insights: Poor due to dementia, but patient has been in good behavioral control without violence or aggression - Mood Mood: Neutral - Affect Affect: Broad - Speech Speech: Appropriate - Formal Thought Process Formal Thought Process: Delusions, Loosening of associations Psychotic Thoughts and Behaviors: NO AH/VH. - Suicidal Ideation Suicidal Ideation: No - Homicidal Ideation Homicidal Ideation: No Goal/Treatment Plan - Goal/Treatment Plan Need for Continued Stay: Remain at risks for inpatient hospitalization, Severe functional impairment Progress Toward Problem(s) and Goals/Treatment Plan: Impression: 40 yo female with dementia with behavioral disturbances, due to h/o cardiac arrest and complications related to anoxia. Patient in good behavioral control. Plan: -Individual, group and milieu tx -Will work with court appointed guardian for disposition planning, patient will likely need [facility] care upon discharge due to diminished functioning -Continue Depakote 500 mg AM/ 750 mg PO @1700 -Continue Zyprexa 10 mg PO Daily @1700 Estimated Date of D/C: 06/12/16
[2016-06-08] MEDS: Divalproex 500 mg DR(BID formulation) PO SCH (08:27)
[2016-06-08] MEDS: Multivitamin With Minerals Tab PO SCH (08:28)
[2016-06-08] MEDS: Divalproex 250 mg DR(BID formulation) PO SCH (16:29)
[2016-06-09] MEDS: Divalproex 500 mg DR(BID formulation) PO SCH (09:08)
[2016-06-09] MEDS: Multivitamin With Minerals Tab PO SCH (09:08)
--- NOTE | 2016-06-09 09:46 | PCM.PYCHPN ---
Psychiatric Progress Note - Psychiatric Progress Note Patient seen today, length of contact: Patient evaluated, case discussed with team, chart reviewed Patient Chief Complaint: "I'm okay" Problems Identified/Issues Discussed: No significant events overnight. She expressed some concerns that men on the unit are putting her down (not true-no men on the unit). She has no other acute complaints. She has been observed to be eating and sleeping well. NO AH/ VH/SI/HI. She is only oriented to self as per her baseline. Medication Change: No Medical Record Reviewed: Yes Mental Status Examination - Cognitive Function Orientation: Person, Situation Memory: Impaired Attention: WNL Concentration: Poor (Poor due to dementia) Association: Loose (Loose due to dementia) Fund of Knowledge: Poor (Poor due to dementia) Decription of patient's judgement and insights: Limited due to dementia, patient has been in good behavioral control - Mood Mood: Neutral - Affect Affect: Broad - Speech Speech: Appropriate - Formal Thought Process Formal Thought Process: Delusions, Loosening of associations Psychotic Thoughts and Behaviors: Fluctuating delusional beliefs. NO AH/VH - Suicidal Ideation Suicidal Ideation: No - Homicidal Ideation Homicidal Ideation: No Goal/Treatment Plan - Goal/Treatment Plan Need for Continued Stay: Remain at risks for inpatient hospitalization, Severe functional impairment Progress Toward Problem(s) and Goals/Treatment Plan: Impression: 40 yo female with dementia with behavioral disturbances, due to h/o cardiac arrest and complications related to anoxia. Patient in good behavioral control. Plan: -Individual, group and milieu tx -Will work with court appointed guardian for disposition planning, patient will likely need [facility] care upon discharge due to diminished functioning -Continue Depakote 500 mg AM/ 750 mg PO @1700 -Continue Zyprexa 10 mg PO Daily @1700 Estimated Date of D/C: 06/12/16
[2016-06-09] MEDS: Divalproex 250 mg DR(BID formulation) PO SCH (17:07)
--- NOTE | 2016-06-10 07:49 | CP.PCM.PN ---
Subjective - Date & Time of Evaluation Date of Evaluation: 06/10/16 Time of Evaluation: 07:20 - Subjective Subjective: 40 y/o F seen at bedside comfortable in bed. No new episodes of agitation, however she continues confused and oriented only to person. She remains irritable at times. No changes in urination or stools. No CP, SOB, fever, vomiting. Objective - Vital Signs/Intake and Output Vital Signs (last 24 hours): Temp Pulse Resp BP Pulse Ox 97.7 F 78 20 131/86 06/09/16 15:37 06/09/16 15:37 06/09/16 15:37 06/09/16 15:37 - Medications Medications: Current Medications Amiodarone HCl (Cordarone) 200 mg PO DAILY [facility] Last Admin: 06/09/16 09:08 Dose: 200 mg Apixaban (Eliquis) 2.5 mg PO DAILY [facility] PRN Reason: Protocol Last Admin: 06/09/16 13:42 Dose: 2.5 mg Cholecalciferol (Vitamin D) 1,000 iu PO DAILY [facility] Last Admin: 06/09/16 09:08 Dose: 1,000 iu Diphenhydramine HCl (Benadryl) 50 mg PO Q12 PRN PRN Reason: Agitation Last Admin: 06/08/16 22:20 Dose: 50 mg Diphenhydramine HCl (Benadryl) 50 mg IM Q12 PRN PRN Reason: Agitation Divalproex Sodium (Depakote Dr(*Bid*)) 500 mg PO DAILY [facility] Last Admin: 06/09/16 09:08 Dose: 500 mg Divalproex Sodium (Depakote Dr(*Bid*)) 750 mg PO DAILY@1700 [facility] Last Admin: 06/09/16 17:07 Dose: 750 mg Ferrous Sulfate (Feosol) 325 mg PO DAILY [facility] Last Admin: 06/09/16 09:08 Dose: 325 mg Haloperidol (Haldol) 5 mg PO Q12 PRN PRN Reason: Agitation Haloperidol Lactate (Haldol) 5 mg IM Q12 PRN PRN Reason: Agitation Lorazepam (Ativan) 1 mg PO Q4 PRN PRN Reason: Agitation Last Admin: 06/08/16 22:20 Dose: 1 mg Lorazepam (Ativan) 2 mg IM Q12 PRN PRN Reason: Agitation Multivitamins/Minerals (Therapeutic-M Tab) 1 tab PO DAILY [facility] Last Admin: 06/09/16 09:08 Dose: 1 tab Olanzapine (Zyprexa) 10 mg PO DAILY@1700 [facility] Last Admin: 06/09/16 17:06 Dose: 10 mg - Labs Labs: 06/03/16 10:02 06/03/16 10:02 - Constitutional Appears: Non-toxic, No Acute Distress - Head Exam Head Exam: NORMAL INSPECTION - Eye Exam Eye Exam: EOMI - ENT Exam ENT Exam: Mucous Membranes Moist - Neck Exam Neck Exam: Normal Inspection - Respiratory Exam Respiratory Exam: Clear to Ausculation Bilateral, NORMAL BREATHING PATTERN - Cardiovascular Exam Cardiovascular Exam: REGULAR RHYTHM, +S1, +S2 - GI/Abdominal Exam GI & Abdominal Exam: Soft, Normal Bowel Sounds - Extremities Exam Extremities Exam: Full ROM, Normal Inspection - Neurological Exam Neurological Exam: Alert, Normal Gait. absent: Oriented x3 - Psychiatric Exam Psychiatric exam: absent: Agitated - Skin Skin Exam: Normal Color, Warm Assessment and Plan - Assessment and Plan (Free Text) Assessment: 40 year old female with anoxic encephalopathy s/p cardiac arrest. Patient is clinically stable. 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 -S/P V-fib secondary to cardiomyopathy. -- Echo EF: ~ 15-20% -- Continue with present management. -Eliquis 2.5mg daily -Amiodarone 200mg PO daily(last TSH 01/2016, repeat 07/2016) -F/U CBC, BMP
--- NOTE | 2016-06-10 08:49 | PCM.PYCHPN ---
Psychiatric Progress Note - Psychiatric Progress Note Patient seen today, length of contact: Patient evaluated, case discussed with team, chart reviewed Patient Chief Complaint: "I'm okay" Problems Identified/Issues Discussed: No significant events overnight. She expressed some mild paranoia that people are talking about her, but is in good behavioral control and has no violtent ideation/plan/intent. She has no other acute complaints. She has been observed to be eating and sleeping well. NO AH/VH/SI/HI. She is only oriented to self as per her baseline. Medication Change: No Medical Record Reviewed: Yes Mental Status Examination - Cognitive Function Orientation: Person, Situation Memory: Impaired Attention: WNL Concentration: Poor (Poor due to dementia) Association: Loose (Loose due to dementia) Fund of Knowledge: Poor (Poor due to dementia) Decription of patient's judgement and insights: Limited due to dementia, but patient has been in good behavioral control - Mood Mood: Neutral - Affect Affect: Broad - Speech Speech: Appropriate - Formal Thought Process Formal Thought Process: Paranoia, Loosening of associations Psychotic Thoughts and Behaviors: Paranoid that people are talking about her - Suicidal Ideation Suicidal Ideation: No - Homicidal Ideation Homicidal Ideation: No Goal/Treatment Plan - Goal/Treatment Plan Need for Continued Stay: Remain at risks for inpatient hospitalization, Severe functional impairment Progress Toward Problem(s) and Goals/Treatment Plan: Impression: 40 yo female with dementia with behavioral disturbances, due to h/o cardiac arrest and complications related to anoxia. Patient in good behavioral control. Plan: -Individual, group and milieu tx -Will work with court appointed guardian for disposition planning, patient will likely need skilled nursing care upon discharge due to diminished functioning -Continue Depakote 500 mg AM/ 750 mg PO @1700 -Continue Zyprexa 10 mg PO Daily @1700 Estimated Date of D/C: 06/19/16
[2016-06-10] MEDS: Divalproex 500 mg DR(BID formulation) PO SCH (09:35)
[2016-06-10] MEDS: Multivitamin With Minerals Tab PO SCH (09:36)
[2016-06-10 10:37] LABS: BASO % 0.6 % (0.0-2.0); EOS # 0.3 K/uL (0.0-0.7); EOS % 5.8 % (0.0-4.0); HEMATOCRIT 37.1 % (34.0-47.0); LYMPH # 1.4 K/uL (1.0-4.3); LYMPH % 29.6 % (20.0-40.0); MEAN CELL VOLUME 88.2 fl (81.0-99.0); MEAN CORPUSCULAR HGB CONC 32.9 g/dL (33.0-37.0); MEAN PLATELET VOLUME 8.4 fl (7.2-11.7); MONO # 0.6 K/uL (0.0-0.8); MONO % 12.3 % (0.0-10.0); NEUT # 2.5 K/uL (1.8-7.0); NEUT % 51.7 % (50.0-75.0); RED CELL DISTRIBUTION WIDTH 13.4 % (11.5-14.5); WHITE BLOOD COUNT 4.8 K/uL (4.8-10.8)
[2016-06-10 10:54] LABS: BLOOD UREA NITROGEN 21 mg/dl (7-17); CALCIUM 9.1 mg/dL (8.4-10.2); CARBON DIOXIDE 31 mmol/L (22-30); CHLORIDE 102 mmol/L (98-107); GFR AFRICAN-AMERICAN > 60; GLUCOSE,RANDOM 94 mg/dL (65-105); POTASSIUM 3.7 MMOL/L (3.6-5.0); SODIUM 143 mmol/l (132-148)
[2016-06-10] MEDS: Divalproex 250 mg DR(BID formulation) PO SCH (16:38)
--- NOTE | 2016-06-11 08:18 | PCM.PYCHPN ---
Psychiatric Progress Note - Psychiatric Progress Note Patient seen today, length of contact: Patient evaluated, case discussed with team, chart reviewed Patient Chief Complaint: "I'm okay" Problems Identified/Issues Discussed: No significant events overnight. She denied paranoia this morning and is calm and cooperative with the process description writer. She is in good behavioral control and has no violent ideation/plan/intent. She has no other acute complaints. She has been observed to be eating and sleeping well. NO AH/VH/SI/HI. She is only oriented to self as per her baseline. Medication Change: No Medical Record Reviewed: Yes Mental Status Examination - Cognitive Function Orientation: Person, Situation Memory: Impaired Attention: WNL Concentration: Poor (Poor due to dementia) Association: Loose (Loose due to dementia) Fund of Knowledge: Poor (Poor due to dementia) Decription of patient's judgement and insights: Poor insight, limited judgment, but she has been in good behavioral control - Mood Mood: Neutral - Affect Affect: Broad - Speech Speech: Appropriate - Formal Thought Process Formal Thought Process: Loosening of associations Psychotic Thoughts and Behaviors: No AH/VH/paranoia - Suicidal Ideation Suicidal Ideation: No - Homicidal Ideation Homicidal Ideation: No Goal/Treatment Plan - Goal/Treatment Plan Need for Continued Stay: Remain at risks for inpatient hospitalization, Severe functional impairment Progress Toward Problem(s) and Goals/Treatment Plan: Impression: 40 yo female with dementia with behavioral disturbances, due to h/o cardiac arrest and complications related to anoxia. Patient in good behavioral control. Plan: -Individual, group and milieu tx -Will work with court appointed guardian for disposition planning, patient will likely need shelter care upon discharge due to diminished functioning -Continue Depakote 500 mg AM/ 750 mg PO @1700 -Continue Zyprexa 10 mg PO Daily @1700 Estimated Date of D/C: 06/19/16
[2016-06-11] MEDS: Multivitamin With Minerals Tab PO SCH (08:54)
[2016-06-11] MEDS: Divalproex 500 mg DR(BID formulation) PO SCH (08:55)
[2016-06-11] MEDS: Divalproex 250 mg DR(BID formulation) PO SCH (16:16)
--- NOTE | 2016-06-12 08:16 | PCM.PYCHPN ---
Psychiatric Progress Note - Psychiatric Progress Note Patient seen today, length of contact: Patient evaluated, case discussed with team, chart reviewed Patient Chief Complaint: "I'm good." Problems Identified/Issues Discussed: No significant events overnight. No acute psychiatric or medical complaints. She denied paranoia this morning and is calm and cooperative with the short story writer. She is in good behavioral control and has no violent ideation/plan/intent. She has been observed to be eating and sleeping well. NO AH/VH/SI/HI. She is only oriented to self as per her baseline. Medication Change: No Medical Record Reviewed: Yes Mental Status Examination - Cognitive Function Orientation: Person, Situation Memory: Impaired Attention: WNL Concentration: Poor (Poor due to dementia) Association: Loose (Loose due to dementia) Fund of Knowledge: Poor (Poor due to dementia) Decription of patient's judgement and insights: Poor insight, limited judgment, but the patient has been in good behavioral control - Mood Mood: Neutral - Affect Affect: Broad - Speech Speech: Appropriate - Formal Thought Process Formal Thought Process: Loosening of associations Psychotic Thoughts and Behaviors: No AH/VH/paranoia - Suicidal Ideation Suicidal Ideation: No - Homicidal Ideation Homicidal Ideation: No Goal/Treatment Plan - Goal/Treatment Plan Need for Continued Stay: Remain at risks for inpatient hospitalization, Severe functional impairment Progress Toward Problem(s) and Goals/Treatment Plan: Impression: 40 yo female with dementia with behavioral disturbances, due to h/o cardiac arrest and complications related to anoxia. Patient in good behavioral control. Plan: -Individual, group and milieu tx -Continue Depakote 500 mg AM/ 750 mg PO @1700 -Continue Zyprexa 10 mg PO Daily @1700 -Disposition planning to obtain insurance so patient can be placed in a long- term facility as she is not able to care for herself Estimated Date of D/C: 06/19/16
--- NOTE | 2016-06-12 08:46 | CP.PCM.PN ---
Subjective - Date & Time of Evaluation Date of Evaluation: 06/12/16 Time of Evaluation: 07:15 - Subjective Subjective: 40 y/o F seen at bedside, she spent night uneventful, no agitation. Remains confused and oriented only to person. Tolerating PO and no changes in urination and stools reported. CBC, BMP from 2 days ago reviewed Objective - Vital Signs/Intake and Output Vital Signs (last 24 hours): Temp Pulse Resp BP Pulse Ox 97.7 F 83 20 107/68 06/11/16 15:52 06/11/16 15:52 06/11/16 15:52 06/11/16 15:52 - Medications Medications: Current Medications Amiodarone HCl (Cordarone) 200 mg PO DAILY [facility] Last Admin: 06/11/16 08:54 Dose: 200 mg Apixaban (Eliquis) 2.5 mg PO DAILY [facility] PRN Reason: Protocol Last Admin: 06/11/16 08:53 Dose: 2.5 mg Cholecalciferol (Vitamin D) 1,000 iu PO DAILY [facility] Last Admin: 06/11/16 08:53 Dose: 1,000 iu Diphenhydramine HCl (Benadryl) 50 mg PO Q12 PRN PRN Reason: Agitation Last Admin: 06/08/16 22:20 Dose: 50 mg Diphenhydramine HCl (Benadryl) 50 mg IM Q12 PRN PRN Reason: Agitation Divalproex Sodium (Depakote Dr(*Bid*)) 500 mg PO DAILY [facility] Last Admin: 06/11/16 08:55 Dose: 500 mg Divalproex Sodium (Depakote Dr(*Bid*)) 750 mg PO DAILY@1700 [facility] Last Admin: 06/11/16 16:16 Dose: 750 mg Ferrous Sulfate (Feosol) 325 mg PO DAILY [facility] Last Admin: 06/11/16 08:53 Dose: 325 mg Haloperidol (Haldol) 5 mg PO Q12 PRN PRN Reason: Agitation Haloperidol Lactate (Haldol) 5 mg IM Q12 PRN PRN Reason: Agitation Lorazepam (Ativan) 1 mg PO Q4 PRN PRN Reason: Agitation Last Admin: 06/08/16 22:20 Dose: 1 mg Lorazepam (Ativan) 2 mg IM Q12 PRN PRN Reason: Agitation Multivitamins/Minerals (Therapeutic-M Tab) 1 tab PO DAILY [facility] Last Admin: 06/11/16 08:54 Dose: 1 tab Olanzapine (Zyprexa) 10 mg PO DAILY@1700 [facility] Last Admin: 06/11/16 16:16 Dose: 10 mg - Labs Labs: 06/10/16 10:28 06/10/16 10:28 - Constitutional Appears: Non-toxic, No Acute Distress - Eye Exam Eye Exam: EOMI, PERRL - Respiratory Exam Respiratory Exam: Clear to Ausculation Bilateral, NORMAL BREATHING PATTERN - Cardiovascular Exam Cardiovascular Exam: REGULAR RHYTHM, +S1, +S2 - GI/Abdominal Exam GI & Abdominal Exam: Soft, Normal Bowel Sounds - Extremities Exam Extremities Exam: Full ROM, Normal Inspection - Back Exam Back Exam: absent: CVA tenderness (L), CVA tenderness (R) - Neurological Exam Neurological Exam: Alert, Awake, Normal Gait. absent: Oriented x3 - Psychiatric Exam Psychiatric exam: Anxious Assessment and Plan - Assessment and Plan (Free Text) Assessment: 40 year old female with anoxic encephalopathy s/p cardiac arrest. Patient is clinically stable. 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 -S/P V-fib secondary to cardiomyopathy. -- Echo EF: ~ 15-20% -- Continue with present management. -Eliquis 2.5mg daily -Amiodarone 200mg PO daily(last TSH 01/2016, repeat 07/2016) -CBC, BMP WNL
[2016-06-12] MEDS: Multivitamin With Minerals Tab PO SCH (13:02)
[2016-06-12] MEDS: Divalproex 500 mg DR(BID formulation) PO SCH (13:04)
[2016-06-12] MEDS: Divalproex 250 mg DR(BID formulation) PO SCH (20:51)
--- NOTE | 2016-06-13 10:12 | PCM.PYCHPN ---
Psychiatric Progress Note - Psychiatric Progress Note Patient seen today, length of contact: discussed with RN Patient Chief Complaint: i'm fine Problems Identified/Issues Discussed: pt without any complaints today. no agitation. no aggression. Medication Change: No Medical Record Reviewed: Yes Mental Status Examination - Cognitive Function Orientation: Person, Situation Memory: Impaired Attention: WNL Concentration: Poor Fund of Knowledge: Poor (Poor due to dementia) - Mood Mood: Neutral - Affect Affect: Broad - Speech Speech: Appropriate - Formal Thought Process Formal Thought Process: Loosening of associations - Suicidal Ideation Suicidal Ideation: No - Homicidal Ideation Homicidal Ideation: No Goal/Treatment Plan - Goal/Treatment Plan Need for Continued Stay: Remain at risks for inpatient hospitalization, Severe functional impairment Progress Toward Problem(s) and Goals/Treatment Plan: vascular dementia with with behavioral disturbance continue current treatment Estimated Date of D/C: 06/19/16
[2016-06-13] MEDS: Multivitamin With Minerals Tab PO SCH (11:44)
[2016-06-13] MEDS: Divalproex 500 mg DR(BID formulation) PO SCH (11:47)
[2016-06-13] MEDS: Divalproex 250 mg DR(BID formulation) PO SCH (17:08)
[2016-06-14] MEDS: Divalproex 500 mg DR(BID formulation) PO SCH (09:24)
[2016-06-14] MEDS: Multivitamin With Minerals Tab PO SCH (09:25)
--- NOTE | 2016-06-14 10:49 | PCM.PYCHPN ---
Psychiatric Progress Note - Psychiatric Progress Note Patient seen today, length of contact: discussed with team Patient Chief Complaint: i'm ok Problems Identified/Issues Discussed: pt with episodes of irritability. paranoid at times. able to be redirected. no c /o medication side effects. Medication Change: No Medical Record Reviewed: Yes Mental Status Examination - Cognitive Function Orientation: Person, Situation Memory: Impaired Attention: WNL Concentration: Poor Fund of Knowledge: Poor (Poor due to dementia) - Mood Mood: Neutral - Affect Affect: Broad - Speech Speech: Appropriate - Formal Thought Process Formal Thought Process: Loosening of associations - Suicidal Ideation Suicidal Ideation: No - Homicidal Ideation Homicidal Ideation: No Goal/Treatment Plan - Goal/Treatment Plan Need for Continued Stay: Remain at risks for inpatient hospitalization, Severe functional impairment Progress Toward Problem(s) and Goals/Treatment Plan: vascular dementia with with behavioral disturbance continue current treatment Estimated Date of D/C: 06/19/16
[2016-06-14] MEDS: Divalproex 250 mg DR(BID formulation) PO SCH (16:04)
[2016-06-15] MEDS: Divalproex 500 mg DR(BID formulation) PO SCH (08:27)
[2016-06-15] MEDS: Multivitamin With Minerals Tab PO SCH (08:27)
--- NOTE | 2016-06-15 09:43 | PCM.PYCHPN ---
Psychiatric Progress Note - Psychiatric Progress Note Patient seen today, length of contact: Patient evaluated, case discussed with team, chart reviewed Patient Chief Complaint: "I'm good." Problems Identified/Issues Discussed: No significant events over the weekend. Patient calm, cooperative, eating her breakfast. No acute psychiatric or medical complaints. She denied paranoia this morning. She is in good behavioral control and has no violent ideation/plan /intent. She has been observed to be eating and sleeping well. NO AH/VH/SI/ HI. She is only oriented to self as per her baseline. Medication Change: No Medical Record Reviewed: Yes Mental Status Examination - Cognitive Function Orientation: Person, Situation Memory: Impaired Attention: WNL Concentration: Poor Fund of Knowledge: Poor (Poor due to dementia) Decription of patient's judgement and insights: Poor insight, limited judgment, but the patient has been in good behavioral control - Mood Mood: Neutral - Affect Affect: Broad - Speech Speech: Appropriate - Formal Thought Process Formal Thought Process: Loosening of associations Psychotic Thoughts and Behaviors: Denies AH/VH - Suicidal Ideation Suicidal Ideation: No - Homicidal Ideation Homicidal Ideation: No Goal/Treatment Plan - Goal/Treatment Plan Need for Continued Stay: Remain at risks for inpatient hospitalization, Severe functional impairment Progress Toward Problem(s) and Goals/Treatment Plan: Impression: 40 yo female with dementia with behavioral disturbances, due to h/o cardiac arrest and complications related to anoxia. Patient in good behavioral control. Plan: -Individual, group and milieu tx -Continue Depakote 500 mg AM/ 750 mg PO @1700 -Continue Zyprexa 10 mg PO Daily @1700 -Disposition planning: insurance pending, then will refer to a long-term facility as she is not able to care for herself
--- NOTE | 2016-06-15 09:48 | CP.PCM.PN ---
Subjective - Date & Time of Evaluation Date of Evaluation: 06/15/16 Time of Evaluation: 06:50 - Subjective Subjective: 40 y/o seen at bedside in not acute distress. Patient is stable. Last episode of agitation 2 days ago. She is tolerating PO, no changes in urination or stools. Objective - Vital Signs/Intake and Output Vital Signs (last 24 hours): Temp Pulse Resp BP Pulse Ox 97.7 F 84 18 120/80 99 06/15/16 05:41 06/15/16 08:27 06/15/16 05:41 06/15/16 08:27 06/13/16 06:00 - Medications Medications: Current Medications Amiodarone HCl (Cordarone) 200 mg PO DAILY [facility] Last Admin: 06/15/16 08:27 Dose: 200 mg Apixaban (Eliquis) 2.5 mg PO DAILY [facility] PRN Reason: Protocol Last Admin: 06/15/16 08:27 Dose: 2.5 mg Cholecalciferol (Vitamin D) 1,000 iu PO DAILY [facility] Last Admin: 06/15/16 08:28 Dose: 1,000 iu Diphenhydramine HCl (Benadryl) 50 mg PO Q12 PRN PRN Reason: Agitation Last Admin: 06/13/16 19:47 Dose: 50 mg Diphenhydramine HCl (Benadryl) 50 mg IM Q12 PRN PRN Reason: Agitation Divalproex Sodium (Depakote Dr(*Bid*)) 500 mg PO DAILY [facility] Last Admin: 06/15/16 08:27 Dose: 500 mg Divalproex Sodium (Depakote Dr(*Bid*)) 750 mg PO DAILY@1700 [facility] Last Admin: 06/14/16 16:04 Dose: 750 mg Ferrous Sulfate (Feosol) 325 mg PO DAILY [facility] Last Admin: 06/15/16 08:27 Dose: 325 mg Haloperidol (Haldol) 5 mg PO Q12 PRN PRN Reason: Agitation Haloperidol Lactate (Haldol) 5 mg IM Q12 PRN PRN Reason: Agitation Lorazepam (Ativan) 1 mg PO Q4 PRN PRN Reason: Agitation Last Admin: 06/13/16 19:47 Dose: 1 mg Lorazepam (Ativan) 2 mg IM Q12 PRN PRN Reason: Agitation Multivitamins/Minerals (Therapeutic-M Tab) 1 tab PO DAILY [facility] Last Admin: 06/15/16 08:27 Dose: 1 tab Olanzapine (Zyprexa) 10 mg PO DAILY@1700 [facility] Last Admin: 06/14/16 16:05 Dose: 10 mg - Labs Labs: 06/10/16 10:28 06/10/16 10:28 - Constitutional Appears: Non-toxic, No Acute Distress - Head Exam Head Exam: ATRAUMATIC - Eye Exam Eye Exam: EOMI, PERRL - Respiratory Exam Respiratory Exam: Clear to Ausculation Bilateral, NORMAL BREATHING PATTERN - Cardiovascular Exam Cardiovascular Exam: REGULAR RHYTHM, +S1, +S2 - Back Exam Back Exam: absent: CVA tenderness (L), CVA tenderness (R) - Neurological Exam Neurological Exam: Alert, Awake. 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 Patient is clinically stable. 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 -S/P V-fib secondary to cardiomyopathy. -- Echo EF: ~ 15-20% -- Continue with present management. -Eliquis 2.5mg daily -Amiodarone 200mg PO daily(last TSH 01/2016, repeat 07/2016) -Pending insurance status for disposition to be transferred to [facility] terminal [facility] facility since patient can't take care for herself
[2016-06-15] MEDS: Divalproex 250 mg DR(BID formulation) PO SCH (17:28)
[2016-06-16] MEDS: Multivitamin With Minerals Tab PO SCH (08:40)
[2016-06-16] MEDS: Divalproex 500 mg DR(BID formulation) PO SCH (08:40)
--- NOTE | 2016-06-16 08:41 | PCM.PYCHPN ---
Psychiatric Progress Note - Psychiatric Progress Note Patient seen today, length of contact: Patient evaluated, case discussed with team, chart reviewed Patient Chief Complaint: "I'm good." Problems Identified/Issues Discussed: No significant events overnight. She is only oriented to self as per her baseline. Patient calm, cooperative, eating her breakfast. No acute psychiatric or medical complaints. She denied paranoia this morning. She is in good behavioral control and has no violent ideation/plan/intent. She has been observed to be eating and sleeping well. NO AH/VH/SI/HI. Medication Change: No Medical Record Reviewed: Yes Mental Status Examination - Cognitive Function Orientation: Person, Situation Memory: Impaired Attention: WNL Concentration: Poor Association: Loose Fund of Knowledge: Poor (Poor due to dementia) Decription of patient's judgement and insights: Limited insight and judgment - Mood Mood: Neutral - Affect Affect: Broad - Speech Speech: Appropriate - Formal Thought Process Formal Thought Process: Loosening of associations Psychotic Thoughts and Behaviors: No AH/VH. Delusional attachment to her stuffed Joseph doll - Suicidal Ideation Suicidal Ideation: No - Homicidal Ideation Homicidal Ideation: No Goal/Treatment Plan - Goal/Treatment Plan Need for Continued Stay: Remain at risks for inpatient hospitalization, Severe functional impairment Progress Toward Problem(s) and Goals/Treatment Plan: Impression: 40 yo female with dementia with behavioral disturbances, due to h/o cardiac arrest and complications related to anoxia. Patient in good behavioral control. Plan: -Individual, group and milieu tx -Continue Depakote 500 mg AM/ 750 mg PO @1700 -Continue Zyprexa 10 mg PO Daily @1700 -Disposition planning: insurance pending, then will refer to a long-term facility as she is not able to care for herself Estimated Date of D/C: 06/26/16
[2016-06-16] MEDS: Divalproex 250 mg DR(BID formulation) PO SCH (16:35)
[2016-06-17] MEDS: Multivitamin With Minerals Tab PO SCH (08:33)
[2016-06-17] MEDS: Divalproex 500 mg DR(BID formulation) PO SCH (08:34)
--- NOTE | 2016-06-17 09:05 | CP.PCM.PN ---
Subjective - Date & Time of Evaluation Date of Evaluation: 06/17/16 Time of Evaluation: 09:04 - Subjective Subjective: Patient is seen and examined at bedside. Patient noted to be eating breakfast, cooperative with conversation and physical exam. Patient has no acute complaints -no chest pain, no SOB, no abdominal pain, n/v, and urinary disturbances. Pt states she is today. Objective - Vital Signs/Intake and Output Vital Signs (last 24 hours): Temp Pulse Resp BP Pulse Ox 97.2 F L 75 19 130/59 L 99 06/17/16 06:00 06/17/16 08:33 06/17/16 06:00 06/17/16 08:33 06/13/16 06:00 - Medications Medications: Current Medications Amiodarone HCl (Cordarone) 200 mg PO DAILY [facility] Last Admin: 06/17/16 08:33 Dose: 200 mg Apixaban (Eliquis) 2.5 mg PO DAILY [facility] PRN Reason: Protocol Last Admin: 06/17/16 08:32 Dose: 2.5 mg Cholecalciferol (Vitamin D) 1,000 iu PO DAILY [facility] Last Admin: 06/17/16 08:33 Dose: 1,000 iu Diphenhydramine HCl (Benadryl) 50 mg PO Q12 PRN PRN Reason: Agitation Last Admin: 06/13/16 19:47 Dose: 50 mg Diphenhydramine HCl (Benadryl) 50 mg IM Q12 PRN PRN Reason: Agitation Divalproex Sodium (Depakote Dr(*Bid*)) 500 mg PO DAILY [facility] Last Admin: 06/17/16 08:34 Dose: 500 mg Divalproex Sodium (Depakote Dr(*Bid*)) 750 mg PO DAILY@1700 [facility] Last Admin: 06/16/16 16:35 Dose: 750 mg Ferrous Sulfate (Feosol) 325 mg PO DAILY [facility] Last Admin: 06/17/16 08:32 Dose: 325 mg Haloperidol (Haldol) 5 mg PO Q12 PRN PRN Reason: Agitation Haloperidol Lactate (Haldol) 5 mg IM Q12 PRN PRN Reason: Agitation Lorazepam (Ativan) 1 mg PO Q4 PRN PRN Reason: Agitation Last Admin: 06/13/16 19:47 Dose: 1 mg Lorazepam (Ativan) 2 mg IM Q12 PRN PRN Reason: Agitation Multivitamins/Minerals (Therapeutic-M Tab) 1 tab PO DAILY [facility] Last Admin: 06/17/16 08:33 Dose: 1 tab Olanzapine (Zyprexa) 10 mg PO DAILY@1700 [facility] Last Admin: 06/16/16 16:36 Dose: 10 mg - Labs Labs: 06/10/16 10:28 06/10/16 10:28 - Constitutional Appears: Non-toxic - Head Exam Head Exam: ATRAUMATIC - Eye Exam Eye Exam: EOMI Pupil Exam: PERRL - ENT Exam ENT Exam: Mucous Membranes Dry - Neck Exam Neck Exam: Full ROM. absent: Lymphadenopathy, Tenderness - Respiratory Exam Respiratory Exam: Clear to Ausculation Bilateral, NORMAL BREATHING PATTERN - Cardiovascular Exam Cardiovascular Exam: REGULAR RHYTHM, +S1, +S2 - GI/Abdominal Exam GI & Abdominal Exam: Soft, Normal Bowel Sounds. absent: Tenderness - Extremities Exam Extremities Exam: Normal Inspection. 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 -S/P V-fib secondary to cardiomyopathy. -- Echo EF: ~ 15-20% -- Continue with present management. -Eliquis 2.5mg daily -Amiodarone 200mg PO daily(last TSH 01/2016, repeat 07/2016) -Pending medicaid for patient's disposition.
--- NOTE | 2016-06-17 10:49 | PCM.PYCHPN ---
Psychiatric Progress Note - Psychiatric Progress Note Patient seen today, length of contact: Patient evaluated, case discussed with team, chart reviewed Patient Chief Complaint: "I'm good." Problems Identified/Issues Discussed: No acute psychiatric or medical complaints. No significant events overnight. She is only oriented to self as per her baseline. Patient calm, cooperative, eating her breakfast. She denied paranoia this morning. She is in good behavioral control and has no violent ideation/plan/intent. She has been observed to be eating and sleeping well. NO AH/VH/SI/HI. Medication Change: No Medical Record Reviewed: Yes Mental Status Examination - Cognitive Function Orientation: Person, Situation Memory: Impaired Attention: WNL Concentration: Poor Association: Loose Fund of Knowledge: Poor (Poor due to dementia) Decription of patient's judgement and insights: Poor insight/ limited judgment, but the patient is in good behavioral control - Mood Mood: Neutral - Affect Affect: Broad - Speech Speech: Appropriate - Formal Thought Process Formal Thought Process: Loosening of associations Psychotic Thoughts and Behaviors: NO AH/VH/paranoia. +Delusional attachment to her john doll - Suicidal Ideation Suicidal Ideation: No - Homicidal Ideation Homicidal Ideation: No Goal/Treatment Plan - Goal/Treatment Plan Need for Continued Stay: Remain at risks for inpatient hospitalization, Severe functional impairment Progress Toward Problem(s) and Goals/Treatment Plan: Impression: 40 yo female with dementia with behavioral disturbances, due to h/o cardiac arrest and complications related to anoxia. Patient in good behavioral control. Plan: -Individual, group and milieu tx -Continue Depakote 500 mg AM/ 750 mg PO @1700 -Continue Zyprexa 10 mg PO Daily @1700 -Disposition planning: insurance pending, then will refer to a long-term facility as she is not able to care for herself Estimated Date of D/C: 06/26/16
[2016-06-17] MEDS: Divalproex 250 mg DR(BID formulation) PO SCH (16:51)
--- NOTE | 2016-06-18 10:12 | PCM.PYCHPN ---
Psychiatric Progress Note - Psychiatric Progress Note Patient seen today, length of contact: Patient evaluated, case discussed with team, chart reviewed Patient Chief Complaint: "I'm good." Problems Identified/Issues Discussed: No significant events overnight. No acute psychiatric or medical complaints. She is only oriented to self as per her baseline. Patient calm, cooperative, eating her breakfast. She is in good behavioral control and has no violent ideation/plan/intent. She has been observed to be eating and sleeping well. NO AH/VH/SI/HI/paranoia. Medication Change: No Medical Record Reviewed: Yes Mental Status Examination - Cognitive Function Orientation: Person, Situation Memory: Impaired Attention: WNL Concentration: Poor Association: Loose Fund of Knowledge: Poor (Poor due to dementia) Decription of patient's judgement and insights: Limited insight/judgment, but the patient has been in good behavioral control - Mood Mood: Neutral - Affect Affect: Broad - Speech Speech: Appropriate - Formal Thought Process Formal Thought Process: Loosening of associations Psychotic Thoughts and Behaviors: NO AH/VH/paranoia. + Delusional attachment to her john doll - Suicidal Ideation Suicidal Ideation: No - Homicidal Ideation Homicidal Ideation: No Goal/Treatment Plan - Goal/Treatment Plan Need for Continued Stay: Remain at risks for inpatient hospitalization, Severe functional impairment Progress Toward Problem(s) and Goals/Treatment Plan: Impression: 40 yo female with dementia with behavioral disturbances, due to h/o cardiac arrest and complications related to anoxia. Patient in good behavioral control. Plan: -Individual, group and milieu tx -Continue Depakote 500 mg AM/ 750 mg PO @1700 -Continue Zyprexa 10 mg PO Daily @1700 -Disposition planning: insurance pending, then will refer to a long-term facility as she is not able to care for herself Estimated Date of D/C: 06/26/16
[2016-06-18] MEDS: Divalproex 500 mg DR(BID formulation) PO SCH (12:12)
[2016-06-18] MEDS: Multivitamin With Minerals Tab PO SCH (12:14)
[2016-06-18] MEDS: Divalproex 250 mg DR(BID formulation) PO SCH (17:21)
[2016-06-19] MEDS: Multivitamin With Minerals Tab PO SCH (08:43)
[2016-06-19] MEDS: Divalproex 500 mg DR(BID formulation) PO SCH (08:44)
--- NOTE | 2016-06-19 09:35 | PCM.PYCHPN ---
Psychiatric Progress Note - Psychiatric Progress Note Patient seen today, length of contact: Patient evaluated, case discussed with team, chart reviewed Patient Chief Complaint: "I'm good." Problems Identified/Issues Discussed: No acute psychiatric or medical complaints. She is only oriented to self as per her baseline. Patient calm, cooperative, eating her breakfast. She is in good behavioral control and has no violent ideation/plan/intent. She has been observed to be eating and sleeping well. NO AH/VH/SI/HI/paranoia. Medication Change: No Medical Record Reviewed: Yes Mental Status Examination - Cognitive Function Orientation: Person, Situation Memory: Impaired Attention: WNL Concentration: Poor Association: Loose Fund of Knowledge: Poor (Poor due to dementia) Decription of patient's judgement and insights: Poor insight, limited judgment, but patient has been in good behavioral control - Mood Mood: Neutral - Affect Affect: Broad - Speech Speech: Appropriate - Formal Thought Process Formal Thought Process: Loosening of associations Psychotic Thoughts and Behaviors: NO AH/VH/paranoia. + Delusional attachment to her stuffed animal Joseph doll - Suicidal Ideation Suicidal Ideation: No - Homicidal Ideation Homicidal Ideation: No Goal/Treatment Plan - Goal/Treatment Plan Need for Continued Stay: Remain at risks for inpatient hospitalization, Severe functional impairment Progress Toward Problem(s) and Goals/Treatment Plan: Impression: 40 yo female with dementia with behavioral disturbances, due to h/o cardiac arrest and complications related to anoxia. Patient in good behavioral control. Plan: -Individual, group and milieu tx -Continue Depakote 500 mg AM/ 750 mg PO @1700 -Continue Zyprexa 10 mg PO Daily @1700 -Disposition planning: insurance pending, then will refer to a long-term facility as she is not able to care for herself Estimated Date of D/C: 06/26/16
[2016-06-19] MEDS: Divalproex 250 mg DR(BID formulation) PO SCH (17:28)
[2016-06-20] MEDS: Multivitamin With Minerals Tab PO SCH (09:11)
[2016-06-20] MEDS: Divalproex 500 mg DR(BID formulation) PO SCH (09:11)
--- NOTE | 2016-06-20 14:21 | PCM.PYCHPN ---
Psychiatric Progress Note - Psychiatric Progress Note Patient seen today, length of contact: Patient evaluated, case discussed with team, chart reviewed Patient Chief Complaint: seen laying in room holding stuffed animal resting then seen ambulating in unit. staff report pt has been calmer has been adherent with treatment. pt is pending placement nursing home care . t Problems Identified/Issues Discussed: impaired cognitive function impaired self care delusional disorder history of medical issues multiple substance use history intubation, anoxia Medical Problems: per chart Diagnostic Results: per psychiatry per medicine per nursing per social work per recreational therapy DSM 5 Symptoms Update: alteration in cognition alteration in self care Medication Change: No Medical Record Reviewed: Yes Consults ordered or reviewed: chart reviewed Mental Status Examination - Cognitive Function Orientation: Person, Situation Memory: Impaired Attention: WNL Concentration: Poor Association: Loose Fund of Knowledge: Poor (Poor due to dementia) Decription of patient's judgement and insights: poor - Mood Mood: Neutral - Affect Affect: Broad - Speech Speech: Appropriate - Formal Thought Process Formal Thought Process: Loosening of associations - Suicidal Ideation Suicidal Ideation: No - Homicidal Ideation Homicidal Ideation: No Goal/Treatment Plan - Goal/Treatment Plan Need for Continued Stay: Remain at risks for inpatient hospitalization, Severe functional impairment Progress Toward Problem(s) and Goals/Treatment Plan: inpt milieu adjust meds per status q 15min rounds and per clinical status Nursing support with adls supportive redirection related to delusion therapeutic confrontation discharge planning progress manager long term care care Estimated Date of D/C: 06/26/16 - Smoking Cessation Smoking Cessation Initiated: No Reason for not providing: deferred
[2016-06-20 16:21] LABS: BASO # 0.1 K/uL (0.0-0.2); BASO % 0.8 % (0.0-2.0); EOS # 0.1 K/uL (0.0-0.7); EOS % 2.3 % (0.0-4.0); HEMATOCRIT 35.7 % (34.0-47.0); LYMPH # 1.3 K/uL (1.0-4.3); LYMPH % 20.1 % (20.0-40.0); MEAN CORPUSCULAR HEMOGLOBIN 29.2 pg (27.0-31.0); MEAN CORPUSCULAR HGB CONC 33.2 g/dL (33.0-37.0); MEAN PLATELET VOLUME 8.8 fl (7.2-11.7); MONO # 0.6 K/uL (0.0-0.8); MONO % 10.1 % (0.0-10.0); NEUT # 4.3 K/uL (1.8-7.0); NEUT % 66.7 % (50.0-75.0); NRBC % 0.1 % (0.0-0.0); RED CELL DISTRIBUTION WIDTH 13.2 % (11.5-14.5); WHITE BLOOD COUNT 6.4 K/uL (4.8-10.8)
[2016-06-20 16:34] LABS: ALB/GLOB RATIO 1.3 (1.0-2.1); ALKALINE PHOSPHATASE 51 U/L (38-126); ALT/SGPT 16 U/L (9-52); AST/SGOT 18 U/L (14-36); BILIRUBIN,TOTAL 0.4 mg/dl (0.2-1.3); BLOOD UREA NITROGEN 22 mg/dl (7-17); CALCIUM 9.2 mg/dL (8.4-10.2); CARBON DIOXIDE 28 mmol/L (22-30); CHLORIDE 104 mmol/L (98-107); GFR AFRICAN-AMERICAN > 60; GLUCOSE,RANDOM 122 mg/dL (65-105); POTASSIUM 4.1 MMOL/L (3.6-5.0); SODIUM 142 mmol/l (132-148); TOTAL PROTEIN 6.7 G/DL (6.3-8.2)
[2016-06-20 17:04] LABS: THYROID STIMULATING HORMONE 1.02 mIU/ML (0.46-4.68)
[2016-06-20] MEDS: Divalproex 250 mg DR(BID formulation) PO SCH (17:22)
[2016-06-21] MEDS: Multivitamin With Minerals Tab PO SCH (08:41)
[2016-06-21] MEDS: Divalproex 500 mg DR(BID formulation) PO SCH (08:42)
[2016-06-21] MEDS: Divalproex 250 mg DR(BID formulation) PO SCH (16:15)
--- NOTE | 2016-06-21 18:00 | PCM.PYCHPN ---
Psychiatric Progress Note - Psychiatric Progress Note Patient seen today, length of contact: Patient evaluated, case discussed with team, chart reviewed Patient Chief Complaint: seen laying in room holding stuffed animal resting then seen ambulating in unit. staff report pt has been calmer has been adherent with treatment. pt is pending placement correction care . t Problems Identified/Issues Discussed: impaired cognitive function impaired self care delusional disorder history of medical issues multiple substance use history intubation, anoxia Medical Problems: per chart Diagnostic Results: per psychiatry per medicine per nursing per social work per recreational therapy DSM 5 Symptoms Update: alteration in cognition alteration in self care alteration in self control:impulsive improving Medication Change: No Medical Record Reviewed: Yes Mental Status Examination - Cognitive Function Orientation: Person, Situation Memory: Impaired Attention: WNL Concentration: Poor Association: Loose Fund of Knowledge: Poor (Poor due to dementia) Decription of patient's judgement and insights: poor - Mood Mood: Neutral - Affect Affect: Broad - Speech Speech: Appropriate - Formal Thought Process Formal Thought Process: Loosening of associations, Circumstantial Psychotic Thoughts and Behaviors: ?paranoia - Suicidal Ideation Suicidal Ideation: No - Homicidal Ideation Homicidal Ideation: No Goal/Treatment Plan - Goal/Treatment Plan Need for Continued Stay: Remain at risks for inpatient hospitalization, Severe functional impairment Progress Toward Problem(s) and Goals/Treatment Plan: inpt milieu adjust meds per status q 15min rounds and per clinical status Nursing support with adls obtain vpa level and amiodarone supportive redirection related to delusion therapeutic confrontation discharge planning progress adjunct faculty for medical terminology care Estimated Date of D/C: 06/26/16 - Smoking Cessation Smoking Cessation Initiated: No Reason for not providing: deferred
--- NOTE | 2016-06-22 08:14 | PCM.PYCHPN ---
Psychiatric Progress Note - Psychiatric Progress Note Patient seen today, length of contact: Patient evaluated, case discussed with team, chart reviewed Patient Chief Complaint: "I'm good." Problems Identified/Issues Discussed: No significant events over the weekend. No acute psychiatric or medical complaints. She is only oriented to self as per her baseline. Patient calm, cooperative with staff and peers. She is in good behavioral control and has no violent ideation/plan/intent. She has been observed to be eating and sleeping well. NO AH/VH/SI/HI/paranoia. Diagnostic Results: VPA 2- 60.4 Medication Change: No Medical Record Reviewed: Yes Mental Status Examination - Cognitive Function Orientation: Person, Situation Memory: Impaired Attention: WNL Concentration: Poor Association: Loose Fund of Knowledge: Poor (Poor due to dementia) Decription of patient's judgement and insights: Limited due to dementia, but patient has been in good behavioral control - Mood Mood: Neutral - Affect Affect: Broad - Speech Speech: Appropriate - Formal Thought Process Formal Thought Process: Loosening of associations Psychotic Thoughts and Behaviors: No AH/VH. +Delusional attachment to her stuffed animal - Suicidal Ideation Suicidal Ideation: No - Homicidal Ideation Homicidal Ideation: No Goal/Treatment Plan - Goal/Treatment Plan Need for Continued Stay: Remain at risks for inpatient hospitalization, Severe functional impairment Progress Toward Problem(s) and Goals/Treatment Plan: Impression: 40 yo female with dementia with behavioral disturbances, due to h/o cardiac arrest and complications related to anoxia. Patient in good behavioral control. Plan: -Individual, group and milieu tx -Continue Depakote 500 mg AM/ 750 mg PO @1700 -Continue Zyprexa 10 mg PO Daily @1700 -Disposition planning: insurance pending, then will refer to a long-term facility as she is not able to care for herself
[2016-06-22] MEDS: Multivitamin With Minerals Tab PO SCH (08:36)
[2016-06-22] MEDS: Divalproex 500 mg DR(BID formulation) PO SCH (08:37)
--- NOTE | 2016-06-22 12:07 | CP.PCM.PN ---
Subjective - Date & Time of Evaluation Date of Evaluation: 06/22/16 Time of Evaluation: 12:06 - Subjective Subjective: patient seen and examined at bedside. Lying comfortably in NAD, in pleasant mood , cooperative with conversation and physical exam. Patient has no acute complaints- denies fever/chills, headaches, lightheadedness, CP/SOB/MCCLURE, N/V/D/C , urinary symptoms. Objective - Vital Signs/Intake and Output Vital Signs (last 24 hours): Temp Pulse Resp BP Pulse Ox 97.5 F L 64 20 108/64 99 06/22/16 06:00 06/22/16 08:36 06/22/16 06:00 06/22/16 08:36 06/13/16 06:00 - Medications Medications: Current Medications Amiodarone HCl (Cordarone) 200 mg PO DAILY [facility] Last Admin: 06/22/16 08:36 Dose: 200 mg Apixaban (Eliquis) 2.5 mg PO DAILY [facility] PRN Reason: Protocol Last Admin: 06/22/16 08:37 Dose: 2.5 mg Diphenhydramine HCl (Benadryl) 50 mg PO Q12 PRN PRN Reason: Agitation Last Admin: 06/13/16 19:47 Dose: 50 mg Diphenhydramine HCl (Benadryl) 50 mg IM Q12 PRN PRN Reason: Agitation Divalproex Sodium (Depakote Dr(*Bid*)) 500 mg PO DAILY [facility] Last Admin: 06/22/16 08:37 Dose: 500 mg Divalproex Sodium (Depakote Dr(*Bid*)) 750 mg PO DAILY@1700 [facility] Last Admin: 06/21/16 16:15 Dose: 750 mg Ferrous Sulfate (Feosol) 325 mg PO DAILY [facility] Last Admin: 06/22/16 08:36 Dose: 325 mg Haloperidol (Haldol) 5 mg PO Q12 PRN PRN Reason: Agitation Haloperidol Lactate (Haldol) 5 mg IM Q12 PRN PRN Reason: Agitation Multivitamins/Minerals (Therapeutic-M Tab) 1 tab PO DAILY [facility] Last Admin: 06/22/16 08:36 Dose: 1 tab Olanzapine (Zyprexa) 10 mg PO DAILY@1700 [facility] Last Admin: 06/21/16 16:16 Dose: 10 mg - Labs Labs: 06/20/16 16:00 06/20/16 16:00 - Constitutional Appears: Well, No Acute Distress - Head Exam Head Exam: ATRAUMATIC, NORMOCEPHALIC - Eye Exam Eye Exam: EOMI Pupil Exam: PERRL - ENT Exam ENT Exam: Mucous Membranes Moist - Neck Exam Neck Exam: Full ROM. absent: Lymphadenopathy, Tenderness - Respiratory Exam Respiratory Exam: Clear to Ausculation Bilateral, NORMAL BREATHING PATTERN. absent: Rales, Rhonchi, Wheezes, Stridor - Cardiovascular Exam Cardiovascular Exam: REGULAR RHYTHM, RRR, +S1, +S2. absent: Clicks, Gallop, JVD , Rubs, Murmur - GI/Abdominal Exam GI & Abdominal Exam: Soft, Normal Bowel Sounds. absent: Distended, Firm, Guarding, Rigid, Tenderness, Rebound - Extremities Exam Extremities Exam: Full ROM, Normal Inspection. 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 -S/P V-fib secondary to cardiomyopathy. -- Echo EF: ~ 15-20% -- Continue with present management. -Eliquis 2.5mg daily -Amiodarone 200mg PO daily(last TSH 01/2016, repeat 07/2016) -Pending medicaid for patient's disposition.
[2016-06-22] MEDS: Divalproex 250 mg DR(BID formulation) PO SCH (16:57)
[2016-06-23] MEDS: Multivitamin With Minerals Tab PO SCH (08:41)
[2016-06-23] MEDS: Divalproex 500 mg DR(BID formulation) PO SCH (08:41)
--- NOTE | 2016-06-23 08:56 | PCM.PYCHPN ---
Psychiatric Progress Note - Psychiatric Progress Note Patient seen today, length of contact: Patient evaluated, case discussed with team, chart reviewed Patient Chief Complaint: "I'm okay" Problems Identified/Issues Discussed: Patient was agitated yesterday, requiring 3 separate PRNs: Ativan 1 mg, Haldol 5 mg and Benadryl 50 mg. All day yesterday, patient was pacing the hallways, believing that she needs to leave the hospital for various delusional beliefs. This morning, patient is sleeping most of the morning, but is calmer. She was not physically aggressive, but did yell at staff, was difficult to redirect and was escalating. Will continue to observe clinically. Patient has poor insight and memory of her periods of agitation. Diagnostic Results: VPA 06/22/16- 60.4 Medication Change: No Medical Record Reviewed: Yes Mental Status Examination - Cognitive Function Orientation: Person, Situation Memory: Impaired Attention: WNL Concentration: Poor Association: Loose Fund of Knowledge: Poor (Poor due to dementia) Decription of patient's judgement and insights: Poor insight and judgment - Mood Mood: Neutral - Affect Affect: Broad - Speech Speech: Appropriate - Formal Thought Process Formal Thought Process: Loosening of associations Psychotic Thoughts and Behaviors: +Various delusional beliefs - Suicidal Ideation Suicidal Ideation: No - Homicidal Ideation Homicidal Ideation: No Goal/Treatment Plan - Goal/Treatment Plan Need for Continued Stay: Remain at risks for inpatient hospitalization, Severe functional impairment Progress Toward Problem(s) and Goals/Treatment Plan: Impression: 40 yo female with dementia with behavioral disturbances, due to h/o cardiac arrest and complications related to anoxia. Patient has an episode of agitation yesterday due to her various delusional beliefs. Will continue to observe clinically to determine if a medication adjustment is necessary. Plan: -Individual, group and milieu tx -Continue Depakote 500 mg AM/ 750 mg PO @1700 -Continue Zyprexa 10 mg PO Daily @1700 -Disposition planning: insurance pending, then will refer to a long-term facility as she is not able to care for herself Estimated Date of D/C: 07/10/16 (Pending insurance for retirement placement)
[2016-06-23] MEDS: Divalproex 250 mg DR(BID formulation) PO SCH (16:59)
--- NOTE | 2016-06-24 09:32 | PCM.PYCHPN ---
Psychiatric Progress Note - Psychiatric Progress Note Patient seen today, length of contact: Patient evaluated, case discussed with team, chart reviewed Patient Chief Complaint: "I'm okay" Problems Identified/Issues Discussed: Patient was calm yesterday, with no incidents of agitation or aggression. She did not recall that she was upset the previous day due to her baseline cognitive deficits. She is currently cooperative with staff and peers. No acute medical or psychiatric complaints. She has been eating and sleeping well. NO AH/VH/SI/HI. Diagnostic Results: VPA 06/22/16- 60.4 Medication Change: No Medical Record Reviewed: Yes Mental Status Examination - Cognitive Function Orientation: Person, Situation Memory: Impaired Attention: WNL Concentration: Poor Association: Loose Fund of Knowledge: Poor (Poor due to dementia) Decription of patient's judgement and insights: Limited due to dementia, but patient has been calm, with no agitation yesterday or today - Mood Mood: Neutral - Affect Affect: Broad - Speech Speech: Appropriate - Formal Thought Process Formal Thought Process: Loosening of associations Psychotic Thoughts and Behaviors: NO AH/VH. Various fluctuating delusions. + delusional attachment to her stuff [employer] doll - Suicidal Ideation Suicidal Ideation: No - Homicidal Ideation Homicidal Ideation: No Goal/Treatment Plan - Goal/Treatment Plan Need for Continued Stay: Remain at risks for inpatient hospitalization, Severe functional impairment Progress Toward Problem(s) and Goals/Treatment Plan: Impression: 40 yo female with dementia with behavioral disturbances, due to h/o cardiac arrest and complications related to anoxia. Patient had an episode of agitation two days ago, due to her various delusional beliefs, but she is currently calm without any new periods of agitation or aggression. Will continue to observe clinically to determine if a medication adjustment is necessary. Plan: -Individual, group and milieu tx -Continue Depakote 500 mg AM/ 750 mg PO @1700 -Continue Zyprexa 10 mg PO Daily @1700 -Disposition planning: insurance pending, then will refer to a long-term facility as she is not able to care for herself Estimated Date of D/C: 07/10/16 (Pending insurance for terminal gauger supervisor placement)
[2016-06-24] MEDS: Multivitamin With Minerals Tab PO SCH (09:40)
[2016-06-24] MEDS: Divalproex 500 mg DR(BID formulation) PO SCH (09:40)
[2016-06-24] MEDS: Divalproex 250 mg DR(BID formulation) PO SCH (17:53)
[2016-06-24 23:26] LABS: AMIODARONE 0.5 mcg/mL (1.5-2.5); DESETHYLAMIODARONE 0.4 mcg/mL (1.5-2.5)
--- NOTE | 2016-06-25 09:20 | PCM.PYCHPN ---
Psychiatric Progress Note - Psychiatric Progress Note Patient seen today, length of contact: discussed with team Patient Chief Complaint: i'm ok Problems Identified/Issues Discussed: pt with no aggression/agitation over night. remains paranoid at times. able to be redirected. no c/o medication side effects. Medication Change: No Medical Record Reviewed: Yes Mental Status Examination - Cognitive Function Orientation: Person, Situation Memory: Impaired Attention: WNL Concentration: Poor Association: Loose Fund of Knowledge: Poor (Poor due to dementia) - Mood Mood: Neutral - Affect Affect: Broad - Speech Speech: Appropriate - Formal Thought Process Formal Thought Process: Loosening of associations - Suicidal Ideation Suicidal Ideation: No - Homicidal Ideation Homicidal Ideation: No Goal/Treatment Plan - Goal/Treatment Plan Need for Continued Stay: Remain at risks for inpatient hospitalization, Severe functional impairment Progress Toward Problem(s) and Goals/Treatment Plan: vascular dementia with with behavioral disturbance continue current treatment Estimated Date of D/C: 07/10/16 (Pending insurance for predatory animal exterminator placement)
[2016-06-25] MEDS: Divalproex 500 mg DR(BID formulation) PO SCH (09:40)
[2016-06-25] MEDS: Multivitamin With Minerals Tab PO SCH (09:41)
[2016-06-25] MEDS: Divalproex 250 mg DR(BID formulation) PO SCH (17:20)
[2016-06-26] MEDS: Divalproex 500 mg DR(BID formulation) PO SCH (08:36)
[2016-06-26] MEDS: Multivitamin With Minerals Tab PO SCH (08:36)
--- NOTE | 2016-06-26 09:42 | PCM.PYCHPN ---
Psychiatric Progress Note - Psychiatric Progress Note Patient seen today, length of contact: Chart reviewed, patient evaluated, case discussed with team Patient Chief Complaint: "I'm good." Problems Identified/Issues Discussed: Patient was contacted by her daughter yesterday. Patient was calm during the phone conversation. No significant events overnight or periods of agitation. She is currently cooperative with staff and peers. No acute medical or psychiatric complaints. She has been eating and sleeping well. NO AH/VH/SI/HI. Diagnostic Results: VPA 06/22/16- 60.4 Medication Change: No Medical Record Reviewed: Yes Mental Status Examination - Cognitive Function Orientation: Person, Situation Memory: Impaired Attention: WNL Concentration: Poor Association: Loose Fund of Knowledge: Poor (Poor due to dementia) Decription of patient's judgement and insights: Limited due to dementia - Mood Mood: Neutral - Affect Affect: Broad - Speech Speech: Appropriate - Formal Thought Process Formal Thought Process: Loosening of associations Psychotic Thoughts and Behaviors: Fluctuating delusional beliefs. +Delusional attachment to her stuffed Joseph doll. - Suicidal Ideation Suicidal Ideation: No - Homicidal Ideation Homicidal Ideation: No Goal/Treatment Plan - Goal/Treatment Plan Need for Continued Stay: Remain at risks for inpatient hospitalization, Severe functional impairment Progress Toward Problem(s) and Goals/Treatment Plan: Impression: 40 yo female with dementia with behavioral disturbances, due to h/o cardiac arrest and complications related to anoxia. Patient calm, cooperative and at her baseline of functioning. Plan: -Individual, group and milieu tx -Continue Depakote 500 mg AM/ 750 mg PO @1700 -Continue Zyprexa 10 mg PO Daily @1700 -Disposition planning: insurance pending, then will refer to a long-term facility as she is not able to care for herself Estimated Date of D/C: 07/10/16 (Pending insurance for group home placement)
[2016-06-26] MEDS: Divalproex 250 mg DR(BID formulation) PO SCH (16:49)
--- NOTE | 2016-06-27 08:33 | PCM.PYCHPN ---
Psychiatric Progress Note - Psychiatric Progress Note Patient seen today, length of contact: Chart reviewed, patient evaluated, case discussed with team Patient Chief Complaint: "I'm good." Problems Identified/Issues Discussed: No significant events overnight or periods of agitation. She is currently cooperative with staff and peers. No acute medical or psychiatric complaints. She has been eating and sleeping well. NO AH/VH/SI/HI. Diagnostic Results: VPA 06/22/16- 60.4 Medication Change: No Medical Record Reviewed: Yes Mental Status Examination - Cognitive Function Orientation: Person, Situation Memory: Impaired Attention: WNL Concentration: Poor Association: Loose Fund of Knowledge: Poor (Poor due to dementia) Decription of patient's judgement and insights: Poor due to dementia - Mood Mood: Neutral - Affect Affect: Broad - Speech Speech: Appropriate - Formal Thought Process Formal Thought Process: Loosening of associations Psychotic Thoughts and Behaviors: NO AH/VH. +Various fluctuating delusions. +Delusional attachment to her stuffed Joseph doll. - Suicidal Ideation Suicidal Ideation: No - Homicidal Ideation Homicidal Ideation: No Goal/Treatment Plan - Goal/Treatment Plan Need for Continued Stay: Remain at risks for inpatient hospitalization, Severe functional impairment Progress Toward Problem(s) and Goals/Treatment Plan: Impression: 40 yo female with dementia with behavioral disturbances, due to h/o cardiac arrest and complications related to anoxia. Patient calm, cooperative and at her baseline of functioning. Plan: -Individual, group and milieu tx -Continue Depakote 500 mg AM/ 750 mg PO @1700 -Continue Zyprexa 10 mg PO Daily @1700 -Disposition planning: insurance pending, then will refer to a long-term facility as she is not able to care for herself Estimated Date of D/C: 07/14/16 (Pending insurance for [facility] placement)
[2016-06-27] MEDS: Divalproex 500 mg DR(BID formulation) PO SCH (09:03)
[2016-06-27] MEDS: Multivitamin With Minerals Tab PO SCH (09:03)
[2016-06-27] MEDS: Divalproex 250 mg DR(BID formulation) PO SCH (17:24)
--- NOTE | 2016-06-28 09:36 | PCM.PYCHPN ---
Psychiatric Progress Note - Psychiatric Progress Note Patient seen today, length of contact: Chart reviewed, patient evaluated, case discussed with team Patient Chief Complaint: "I'm good." Problems Identified/Issues Discussed: No significant events yesterday or periods of agitation. She is currently cooperative with staff and peers. No acute medical or psychiatric complaints. She has been eating and sleeping well. NO AH/VH/SI/HI. Diagnostic Results: VPA 06/22/16- 60.4 Medication Change: No Medical Record Reviewed: Yes Mental Status Examination - Cognitive Function Orientation: Person, Situation Memory: Impaired Attention: WNL Concentration: Poor Association: Loose Fund of Knowledge: Poor (Poor due to dementia) Decription of patient's judgement and insights: Limited due to dementia, but patient has been in good behavioral control - Mood Mood: Neutral - Affect Affect: Broad - Speech Speech: Appropriate - Formal Thought Process Formal Thought Process: Loosening of associations Psychotic Thoughts and Behaviors: NO AH/VH. +fluctuating beliefs about her family and where she is. + delusional attachment to her john doll - Suicidal Ideation Suicidal Ideation: No - Homicidal Ideation Homicidal Ideation: No Goal/Treatment Plan - Goal/Treatment Plan Need for Continued Stay: Remain at risks for inpatient hospitalization, Severe functional impairment Progress Toward Problem(s) and Goals/Treatment Plan: Impression: 40 yo female with dementia with behavioral disturbances, due to h/o cardiac arrest and complications related to anoxia. Patient calm, cooperative and at her baseline of functioning. Plan: -Individual, group and milieu tx -Continue Depakote 500 mg AM/ 750 mg PO @1700 -Continue Zyprexa 10 mg PO Daily @1700 -Disposition planning: insurance pending, then will refer to a long-term facility as she is not able to care for herself Estimated Date of D/C: 07/14/16 (Pending insurance for petroleum terminal plant operator placement)
[2016-06-28] MEDS: Multivitamin With Minerals Tab PO SCH (10:27)
[2016-06-28] MEDS: Divalproex 500 mg DR(BID formulation) PO SCH (10:28)
[2016-06-28] MEDS: Divalproex 250 mg DR(BID formulation) PO SCH (16:55)
[2016-06-29] MEDS: Divalproex 500 mg DR(BID formulation) PO SCH (08:51)
[2016-06-29] MEDS: Multivitamin With Minerals Tab PO SCH (08:53)
--- NOTE | 2016-06-29 09:18 | PCM.PYCHPN ---
Psychiatric Progress Note - Psychiatric Progress Note Patient seen today, length of contact: Chart reviewed, patient evaluated, case discussed with team Patient Chief Complaint: "I'm good." Problems Identified/Issues Discussed: No significant events over the weekend or periods of agitation. She is currently cooperative with staff and peers. No acute medical or psychiatric complaints. She has been eating and sleeping well. NO AH/VH/SI/HI. Diagnostic Results: VPA 06/22/16- 60.4 Medication Change: No Medical Record Reviewed: Yes Mental Status Examination - Cognitive Function Orientation: Person, Situation Memory: Impaired Attention: WNL Concentration: Poor Association: Loose Fund of Knowledge: Poor (Poor due to dementia) Decription of patient's judgement and insights: Poor insight, limited judgment due to dementia - Mood Mood: Neutral - Affect Affect: Broad - Speech Speech: Appropriate - Formal Thought Process Formal Thought Process: Loosening of associations Psychotic Thoughts and Behaviors: NO AH/VH, +various fluctuating beliefs - Suicidal Ideation Suicidal Ideation: No - Homicidal Ideation Homicidal Ideation: No Goal/Treatment Plan - Goal/Treatment Plan Need for Continued Stay: Remain at risks for inpatient hospitalization, Severe functional impairment Progress Toward Problem(s) and Goals/Treatment Plan: Impression: 40 yo female with dementia with behavioral disturbances, due to h/o cardiac arrest and complications related to anoxia. Patient calm, cooperative and at her baseline of functioning. Plan: -Individual, group and milieu tx -Continue Depakote 500 mg AM/ 750 mg PO @1700 -Continue Zyprexa 10 mg PO Daily @1700 -Disposition planning: insurance pending, then will refer to a long-term facility as she is not able to care for herself Estimated Date of D/C: 07/14/16 (Pending insurance for detention placement)
[2016-06-29] MEDS: Divalproex 250 mg DR(BID formulation) PO SCH (16:23)
--- NOTE | 2016-06-30 07:54 | PCM.PYCHPN ---
Psychiatric Progress Note - Psychiatric Progress Note Patient seen today, length of contact: Chart reviewed, patient evaluated, case discussed with team Patient Chief Complaint: "I'm good." Problems Identified/Issues Discussed: No significant events last night or periods of agitation. She is currently cooperative with staff and peers. No acute medical or psychiatric complaints. She has been eating and sleeping well. NO AH/VH/SI/HI. Diagnostic Results: VPA 06/22/16- 60.4 Medication Change: No Medical Record Reviewed: Yes Mental Status Examination - Cognitive Function Orientation: Person, Situation Memory: Impaired Attention: WNL Concentration: Poor Association: Loose Fund of Knowledge: Poor (Poor due to dementia) Decription of patient's judgement and insights: Poor insight, limited judgment due to dementia, but patient has been in good behavioral control - Mood Mood: Neutral - Affect Affect: Broad - Speech Speech: Appropriate - Formal Thought Process Formal Thought Process: Loosening of associations Psychotic Thoughts and Behaviors: No AH/VH. +Various fluctuating beliefs, + Delusional attachment to her Joseph doll. - Suicidal Ideation Suicidal Ideation: No - Homicidal Ideation Homicidal Ideation: No Goal/Treatment Plan - Goal/Treatment Plan Need for Continued Stay: Remain at risks for inpatient hospitalization, Severe functional impairment Progress Toward Problem(s) and Goals/Treatment Plan: Impression: 40 yo female with dementia with behavioral disturbances, due to h/o cardiac arrest and complications related to anoxia. Patient calm, cooperative and at her baseline of functioning. Plan: -Individual, group and milieu tx -Continue Depakote 500 mg AM/ 750 mg PO @1700 -Continue Zyprexa 10 mg PO Daily @1700 -Disposition planning: insurance pending, then will refer to a long-term facility as she is not able to care for herself Estimated Date of D/C: 07/14/16 (Pending insurance for half-way placement)
[2016-06-30] MEDS: Divalproex 500 mg DR(BID formulation) PO SCH (13:44)
[2016-06-30] MEDS: Multivitamin With Minerals Tab PO SCH (18:38)
[2016-06-30] MEDS: Divalproex 250 mg DR(BID formulation) PO SCH (20:34)
--- NOTE | 2016-07-01 08:04 | PCM.PYCHPN ---
Psychiatric Progress Note - Psychiatric Progress Note Patient seen today, length of contact: Chart reviewed, patient evaluated, case discussed with team Patient Chief Complaint: "I'm good." Problems Identified/Issues Discussed: No periods of agitation. She is currently cooperative with staff and peers. No acute medical or psychiatric complaints. She has been eating and sleeping well. NO AH/VH/SI/HI. Diagnostic Results: VPA 06/22/16- 60.4 Medication Change: No Medical Record Reviewed: Yes Mental Status Examination - Cognitive Function Orientation: Person, Situation Memory: Impaired Attention: WNL Concentration: Poor Association: Loose Fund of Knowledge: Poor (Poor due to dementia) Decription of patient's judgement and insights: Poor insight, judgment limited by dementia - Mood Mood: Neutral - Affect Affect: Broad - Speech Speech: Appropriate - Formal Thought Process Formal Thought Process: Loosening of associations Psychotic Thoughts and Behaviors: NO AH/VH/paranoia. +Various fluctuating beliefs. - Suicidal Ideation Suicidal Ideation: No - Homicidal Ideation Homicidal Ideation: No Goal/Treatment Plan - Goal/Treatment Plan Need for Continued Stay: Remain at risks for inpatient hospitalization, Severe functional impairment Progress Toward Problem(s) and Goals/Treatment Plan: Impression: 40 yo female with dementia with behavioral disturbances, due to h/o cardiac arrest and complications related to anoxia. Patient calm, cooperative and at her baseline of functioning. Plan: -Individual, group and milieu tx -Continue Depakote 500 mg AM/ 750 mg PO @1700 -Continue Zyprexa 10 mg PO Daily @1700 -Disposition planning: insurance pending, then will refer to a long-term facility as she is not able to care for herself Estimated Date of D/C: 07/14/16 (Pending insurance for rat exterminator placement)
[2016-07-01] MEDS: Multivitamin With Minerals Tab PO SCH (10:39)
[2016-07-01] MEDS: Divalproex 500 mg DR(BID formulation) PO SCH (10:40)
[2016-07-01] MEDS: Divalproex 250 mg DR(BID formulation) PO SCH (17:37)
--- NOTE | 2016-07-02 08:17 | PCM.PYCHPN ---
Psychiatric Progress Note - Psychiatric Progress Note Patient seen today, length of contact: Chart reviewed, patient evaluated, case discussed with team Patient Chief Complaint: "I'm okay." Problems Identified/Issues Discussed: No periods of agitation, no periods of aggression, no significant events overnight. She is currently cooperative with staff and peers. No acute medical or psychiatric complaints. She has been eating and sleeping well. NO AH /VH/SI/HI. Insurance still pending for her to be transferred to a petroleum terminal plant operator living facility. Diagnostic Results: VPA 06/22/16- 60.4 Medication Change: No Medical Record Reviewed: Yes Mental Status Examination - Cognitive Function Orientation: Person, Situation Memory: Impaired Attention: WNL Concentration: Poor Association: Loose Fund of Knowledge: Poor (Poor due to dementia) Decription of patient's judgement and insights: Poor insight, limited judgment due to dementia - Mood Mood: Neutral - Affect Affect: Broad - Speech Speech: Appropriate - Formal Thought Process Formal Thought Process: Loosening of associations Psychotic Thoughts and Behaviors: NO AH/VH/paranoia. +Various fluctuating beliefs +Delusional attachment to her Joseph doll. - Suicidal Ideation Suicidal Ideation: No - Homicidal Ideation Homicidal Ideation: No Goal/Treatment Plan - Goal/Treatment Plan Need for Continued Stay: Remain at risks for inpatient hospitalization, Severe functional impairment Progress Toward Problem(s) and Goals/Treatment Plan: Impression: 40 yo female with dementia with behavioral disturbances, due to h/o cardiac arrest and complications related to anoxia. Patient calm, cooperative and at her baseline of functioning. Plan: -Individual, group and milieu tx -Continue Depakote 500 mg AM/ 750 mg PO @1700 -Continue Zyprexa 10 mg PO Daily @1700 -Disposition planning: insurance pending, then will refer to a long-term facility as she is not able to care for herself Estimated Date of D/C: 07/14/16 (Pending insurance for petroleum terminal plant operator placement)
[2016-07-02] MEDS: Divalproex 500 mg DR(BID formulation) PO SCH (08:41)
[2016-07-02] MEDS: Multivitamin With Minerals Tab PO SCH (08:49)
--- NOTE | 2016-07-02 09:34 | CP.PCM.PN ---
Subjective - Date & Time of Evaluation Date of Evaluation: 07/02/16 Time of Evaluation: 08:32 - Subjective Subjective: Patient seen and examined at bedside. Sitting upright in bed comfortably in NAD , in pleasant mood, cooperative with conversation and physical exam. Patient has no acute complaints- denies fever/chills, palpitations, headaches, CP/SOB, changes in bowel habits or urinary symptoms. Objective - Vital Signs/Intake and Output Vital Signs (last 24 hours): Temp Pulse Resp BP Pulse Ox 97.1 F L 85 19 135/86 99 07/01/16 15:15 07/02/16 08:42 07/01/16 15:15 07/02/16 08:42 06/13/16 06:00 - Medications Medications: Current Medications Amiodarone HCl (Cordarone) 200 mg PO DAILY [facility] Last Admin: 07/02/16 08:42 Dose: 200 mg Apixaban (Eliquis) 2.5 mg PO DAILY [facility] PRN Reason: Protocol Last Admin: 07/02/16 08:42 Dose: 2.5 mg Diphenhydramine HCl (Benadryl) 50 mg PO Q12 PRN PRN Reason: Agitation Last Admin: 06/22/16 23:07 Dose: 50 mg Diphenhydramine HCl (Benadryl) 50 mg IM Q12 PRN PRN Reason: Agitation Divalproex Sodium (Depakote Dr(*Bid*)) 500 mg PO DAILY [facility] Last Admin: 07/02/16 08:41 Dose: 500 mg Divalproex Sodium (Depakote Dr(*Bid*)) 750 mg PO DAILY@1700 [facility] Last Admin: 07/01/16 17:37 Dose: 750 mg Ferrous Sulfate (Feosol) 325 mg PO DAILY [facility] Last Admin: 07/02/16 08:41 Dose: 325 mg Haloperidol (Haldol) 5 mg PO Q12 PRN PRN Reason: Agitation Haloperidol Lactate (Haldol) 5 mg IM Q12 PRN PRN Reason: Agitation Last Admin: 06/22/16 17:12 Dose: 5 mg Lorazepam (Ativan) 1 mg PO Q8 PRN PRN Reason: Anxiety Last Admin: 06/22/16 15:34 Dose: 1 mg Multivitamins/Minerals (Therapeutic-M Tab) 1 tab PO DAILY [facility] Last Admin: 07/02/16 08:49 Dose: 1 tab Olanzapine (Zyprexa) 10 mg PO DAILY@1700 [facility] Last Admin: 07/01/16 17:37 Dose: 10 mg - Labs Labs: 06/20/16 16:00 06/20/16 16:00 - Constitutional Appears: Well, Non-toxic, No Acute Distress - Head Exam Head Exam: NORMAL INSPECTION - Eye Exam Eye Exam: Normal appearance - Neck Exam Neck Exam: Normal Inspection - Respiratory Exam Respiratory Exam: Clear to Ausculation Bilateral, NORMAL BREATHING PATTERN. absent: Decreased Breath Sounds, Rhonchi, Wheezes - Cardiovascular Exam Cardiovascular Exam: RRR, +S1, +S2 - GI/Abdominal Exam GI & Abdominal Exam: Soft, Normal Bowel Sounds. 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 -S/P V-fib secondary to cardiomyopathy. -- Echo EF: ~ 15-20% -- Continue with present management. -Eliquis 2.5mg daily -Amiodarone 200mg PO daily(last TSH 01/2016, repeat 07/2016) -Pending medicaid for patient's disposition.
[2016-07-02] MEDS: Divalproex 250 mg DR(BID formulation) PO SCH (16:05)
[2016-07-03] MEDS: Multivitamin With Minerals Tab PO SCH (08:12)
[2016-07-03] MEDS: Divalproex 500 mg DR(BID formulation) PO SCH (08:12)
--- NOTE | 2016-07-03 08:15 | PCM.PYCHPN ---
Psychiatric Progress Note - Psychiatric Progress Note Patient seen today, length of contact: Chart reviewed, patient evaluated, case discussed with team Patient Chief Complaint: "They are talking about me." Problems Identified/Issues Discussed: Patient mildly paranoid towards staff this morning, thinking that people are talking about her. She is currently calm, cooperative and redirectable. No periods of agitation, no periods of aggression, no significant events overnight. No acute medical complaints. She has been eating and sleeping well. NO AH/VH/SI/HI. Insurance still pending for her to be transferred to a longterm living facility. Diagnostic Results: VPA 06/22/16- 60.4 Medication Change: No Medical Record Reviewed: Yes Mental Status Examination - Cognitive Function Orientation: Person, Situation Memory: Impaired Attention: WNL Concentration: Poor Association: Loose Fund of Knowledge: Poor (Poor due to dementia) Decription of patient's judgement and insights: Poor insight and limited judgment - Mood Mood: Neutral - Affect Affect: Broad - Speech Speech: Appropriate - Formal Thought Process Formal Thought Process: Paranoia (Mild paranoia towards staff), Loosening of associations Psychotic Thoughts and Behaviors: +Believes staff are talking about her. NO AH/VH - Suicidal Ideation Suicidal Ideation: No - Homicidal Ideation Homicidal Ideation: No Goal/Treatment Plan - Goal/Treatment Plan Need for Continued Stay: Remain at risks for inpatient hospitalization, Severe functional impairment Progress Toward Problem(s) and Goals/Treatment Plan: Impression: 40 yo female with dementia with behavioral disturbances, due to h/o cardiac arrest and complications related to anoxia. Patient calm, cooperative and at her baseline of functioning. Plan: -Individual, group and milieu tx -Continue Depakote 500 mg AM/ 750 mg PO @1700 -Continue Zyprexa 10 mg PO Daily @1700 -Disposition planning: insurance pending, then will refer to a long-term facility as she is not able to care for herself Estimated Date of D/C: 07/14/16 (Pending insurance for longterm placement)
[2016-07-03] MEDS: Divalproex 250 mg DR(BID formulation) PO SCH (16:57)
[2016-07-04] MEDS: Divalproex 500 mg DR(BID formulation) PO SCH (08:55)
[2016-07-04] MEDS: Multivitamin With Minerals Tab PO SCH (08:57)
--- NOTE | 2016-07-04 13:16 | PCM.PYCHPN ---
Psychiatric Progress Note - Psychiatric Progress Note Patient seen today, length of contact: pt seen and evaluated Patient Chief Complaint: pt has remained intermittently paranoid and irritible and still with poor cognition and poor insight Problems Identified/Issues Discussed: admitted for disorganized thinking and disruptive behaviors due to dementia with psychosis DSM 5 Symptoms Update: dementia with psychosis Medication Change: No Medical Record Reviewed: Yes Mental Status Examination - Cognitive Function Orientation: Person, Situation Memory: Impaired Attention: Poor Concentration: Poor Association: Loose Fund of Knowledge: Poor (Poor due to dementia) - Mood Mood: Neutral - Affect Affect: Broad - Speech Speech: Appropriate - Formal Thought Process Formal Thought Process: Paranoia (Mild paranoia towards staff), Loosening of associations - Suicidal Ideation Suicidal Ideation: No - Homicidal Ideation Homicidal Ideation: No Goal/Treatment Plan - Goal/Treatment Plan Need for Continued Stay: Remain at risks for inpatient hospitalization, Severe functional impairment Progress Toward Problem(s) and Goals/Treatment Plan: will continue to titrate meds as regimen and engage pt in behavior plan on unit. Estimated Date of D/C: 07/14/16 (Pending insurance for halfway placement)
[2016-07-04] MEDS: Divalproex 250 mg DR(BID formulation) PO SCH (16:26)
[2016-07-05] MEDS: Divalproex 500 mg DR(BID formulation) PO SCH (08:25)
[2016-07-05] MEDS: Multivitamin With Minerals Tab PO SCH (08:27)
--- NOTE | 2016-07-05 11:46 | CP.PCM.PN ---
<Melissa Merino - Last Filed: 07/05/16 12:11> Subjective - Date & Time of Evaluation Date of Evaluation: 07/05/16 Time of Evaluation: 08:00 - Subjective Subjective: Patient seen and examined at bedside, sitting comfortably in bed, in no acute distress, tolerating PO diet, having normal urine and stool output. Patient was cooperative with physical exam and verbal. Denies n/v/d, SOB, chest pain, weakness , has no concerns or complaints at this time. Objective - Vital Signs/Intake and Output Vital Signs (last 24 hours): Temp Pulse Resp BP Pulse Ox 97 F L 68 20 117/70 99 07/04/16 15:36 07/05/16 08:23 07/04/16 15:36 07/05/16 08:23 06/13/16 06:00 - Medications Medications: Current Medications Amiodarone HCl (Cordarone) 200 mg PO DAILY [facility] Last Admin: 07/05/16 08:23 Dose: 200 mg Apixaban (Eliquis) 2.5 mg PO DAILY [facility] PRN Reason: Protocol Last Admin: 07/05/16 08:26 Dose: 2.5 mg Diphenhydramine HCl (Benadryl) 50 mg PO Q12 PRN PRN Reason: Agitation Last Admin: 07/03/16 19:56 Dose: 50 mg Diphenhydramine HCl (Benadryl) 50 mg IM Q12 PRN PRN Reason: Agitation Divalproex Sodium (Depakote Dr(*Bid*)) 500 mg PO DAILY [facility] Last Admin: 07/05/16 08:25 Dose: 500 mg Divalproex Sodium (Depakote Dr(*Bid*)) 750 mg PO DAILY@1700 [facility] Last Admin: 07/04/16 16:26 Dose: 750 mg Ferrous Sulfate (Feosol) 325 mg PO DAILY [facility] Last Admin: 07/05/16 08:26 Dose: 325 mg Haloperidol (Haldol) 5 mg PO Q12 PRN PRN Reason: Agitation Last Admin: 07/03/16 23:28 Dose: 5 mg Haloperidol Lactate (Haldol) 5 mg IM Q12 PRN PRN Reason: Agitation Last Admin: 06/22/16 17:12 Dose: 5 mg Lorazepam (Ativan) 1 mg PO Q8 PRN PRN Reason: Anxiety Last Admin: 07/03/16 19:56 Dose: 1 mg Multivitamins/Minerals (Therapeutic-M Tab) 1 tab PO DAILY [facility] Last Admin: 07/05/16 08:27 Dose: 1 tab Olanzapine (Zyprexa) 10 mg PO DAILY@1700 [facility] Last Admin: 07/04/16 16:17 Dose: 10 mg - Labs Labs: 06/20/16 16:00 06/20/16 16:00 - Constitutional Appears: No Acute Distress - Head Exam Head Exam: ATRAUMATIC, NORMOCEPHALIC - Eye Exam Eye Exam: EOMI, PERRL - ENT Exam ENT Exam: Mucous Membranes Moist - Neck Exam Neck Exam: absent: Lymphadenopathy - Respiratory Exam Respiratory Exam: Clear to Ausculation Bilateral. absent: Rales, Rhonchi - Cardiovascular Exam Cardiovascular Exam: REGULAR RHYTHM, +S1, +S2 - GI/Abdominal Exam GI & Abdominal Exam: Soft, Normal Bowel Sounds. absent: Tenderness - Back Exam Back Exam: absent: CVA tenderness (L), CVA tenderness (R) - Neurological Exam Neurological Exam: Alert, Awake, Normal Gait - Psychiatric Exam Psychiatric exam: Flat Affect, Normal Mood - Skin Skin Exam: Dry, Intact, Normal Color Assessment and Plan - Assessment and Plan (Free Text) Assessment: 40 year old female with anoxic encephalopathy s/p cardiac arrest with notable behavior disturbances. Patient with TSH 1.02 (within normal limits) on 06/17/16. 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 -S/P V-fib secondary to cardiomyopathy; Echo EF: ~ 15-20% -Continue with present management. -Eliquis 2.5mg daily (last CBC within normal limits on 06/20/16), f/u CBC for 07/06/16 -Amiodarone 200mg PO daily (last TSH 1.02 on 06/17/16 = within normal limits ) -Heart Healthy Diet -Pending insurance approval for placement into termite technician care, patient has temporary guardian. 2) DVT prophylaxis -patient is on Eliquis as above -patient ambulates <Stefani Alicia - Last Filed: 07/06/16 07:45> Objective - Vital Signs/Intake and Output Vital Signs (last 24 hours): Temp Pulse Resp BP Pulse Ox 97.2 F L 76 19 120/88 99 07/06/16 05:50 07/06/16 05:50 07/06/16 05:50 07/06/16 05:50 06/13/16 06:00 - Medications Medications: Current Medications Amiodarone HCl (Cordarone) 200 mg PO DAILY [facility] Last Admin: 07/05/16 08:23 Dose: 200 mg Apixaban (Eliquis) 2.5 mg PO DAILY [facility] PRN Reason: Protocol Last Admin: 07/05/16 08:26 Dose: 2.5 mg Diphenhydramine HCl (Benadryl) 50 mg PO Q12 PRN PRN Reason: Agitation Last Admin: 07/03/16 19:56 Dose: 50 mg Diphenhydramine HCl (Benadryl) 50 mg IM Q12 PRN PRN Reason: Agitation Divalproex Sodium (Depakote Dr(*Bid*)) 500 mg PO DAILY [facility] Last Admin: 07/05/16 08:25 Dose: 500 mg Divalproex Sodium (Depakote Dr(*Bid*)) 750 mg PO DAILY@1700 [facility] Last Admin: 07/05/16 16:13 Dose: 750 mg Ferrous Sulfate (Feosol) 325 mg PO DAILY [facility] Last Admin: 07/05/16 08:26 Dose: 325 mg Haloperidol (Haldol) 5 mg PO Q12 PRN PRN Reason: Agitation Last Admin: 07/03/16 23:28 Dose: 5 mg Haloperidol Lactate (Haldol) 5 mg IM Q12 PRN PRN Reason: Agitation Last Admin: 06/22/16 17:12 Dose: 5 mg Lorazepam (Ativan) 1 mg PO Q8 PRN PRN Reason: Anxiety Last Admin: 07/06/16 00:05 Dose: 1 mg Multivitamins/Minerals (Therapeutic-M Tab) 1 tab PO DAILY [facility] Last Admin: 07/05/16 08:27 Dose: 1 tab Olanzapine (Zyprexa) 10 mg PO DAILY@1700 [facility] Last Admin: 07/05/16 16:13 Dose: 10 mg - Labs Labs: 06/20/16 16:00 06/20/16 16:00 - Skin Additional comments: Case discussed with resident. Labs reviewed. Agree with plan
--- NOTE | 2016-07-05 14:54 | PCM.PYCHPN ---
Psychiatric Progress Note - Psychiatric Progress Note Patient seen today, length of contact: pt seen and evaluated Patient Chief Complaint: pt has remained intermittently paranoid and irritible and still with poor cognition and poor insight Problems Identified/Issues Discussed: admitted for disorganized thinking and disruptive behaviors due to dementia with psychosis Medication Change: No Medical Record Reviewed: Yes Mental Status Examination - Cognitive Function Orientation: Person, Situation Memory: Impaired Attention: Poor Concentration: Poor Association: Loose Fund of Knowledge: Poor (Poor due to dementia) - Mood Mood: Neutral - Affect Affect: Broad - Speech Speech: Appropriate - Formal Thought Process Formal Thought Process: Paranoia (Mild paranoia towards staff), Loosening of associations - Suicidal Ideation Suicidal Ideation: No - Homicidal Ideation Homicidal Ideation: No Goal/Treatment Plan - Goal/Treatment Plan Need for Continued Stay: Remain at risks for inpatient hospitalization, Severe functional impairment Progress Toward Problem(s) and Goals/Treatment Plan: will continue to titrate meds as regimen and engage pt in behavior plan on unit. Estimated Date of D/C: 07/14/16 (Pending insurance for long term care social worker placement)
[2016-07-05] MEDS: Divalproex 250 mg DR(BID formulation) PO SCH (16:13)
--- NOTE | 2016-07-06 08:16 | PCM.PYCHPN ---
Psychiatric Progress Note - Psychiatric Progress Note Patient seen today, length of contact: Patient evaluated, case discussed with team, chart reviewed Patient Chief Complaint: "I'm okay" Problems Identified/Issues Discussed: Patient has had intermittent periods of paranoia and irritation. She took a PRN Ativan last night and then fell back to sleep. She has not been violent or aggressive towards staff. No acute medical complaints. She has been eating and sleeping well. NO AH/VH/SI/HI. Insurance still pending for her to be transferred to a terminal press operator living facility. Diagnostic Results: VPA 06/22/16- 60.4 Medication Change: No Medical Record Reviewed: Yes Mental Status Examination - Cognitive Function Orientation: Person, Situation Memory: Impaired Attention: Poor Concentration: Poor Association: Loose Fund of Knowledge: Poor (Poor due to dementia) Decription of patient's judgement and insights: Poor insight, limited judgment due to dementia, but patient has not been violent or aggressive - Mood Mood: Neutral - Affect Affect: Broad - Speech Speech: Appropriate - Formal Thought Process Formal Thought Process: Paranoia (Mild paranoia towards staff), Loosening of associations Psychotic Thoughts and Behaviors: No AH/VH, +Various fluctuating beliefs, +delusional attachment to her stuffed john doll, +intermittent paranoia towards staff - Suicidal Ideation Suicidal Ideation: No - Homicidal Ideation Homicidal Ideation: No Goal/Treatment Plan - Goal/Treatment Plan Need for Continued Stay: Remain at risks for inpatient hospitalization, Severe functional impairment Progress Toward Problem(s) and Goals/Treatment Plan: Impression: 40 yo female with dementia with behavioral disturbances, due to h/o cardiac arrest and complications related to anoxia. Patient calm, cooperative, but has intermittent periods of paranoia without aggression. Will continue to monitor the patient, but she appear to be at her baseline of functioning. Plan: -Individual, group and milieu tx -Continue Depakote 500 mg AM/ 750 mg PO @1700 -Continue Zyprexa 10 mg PO Daily @1700 -Disposition planning: insurance pending, then will refer to a long-term facility as she is not able to care for herself Estimated Date of D/C: 07/14/16 (Pending insurance for penit[facility]iary placement)
[2016-07-06] MEDS: Multivitamin With Minerals Tab PO SCH (09:41)
[2016-07-06] MEDS: Divalproex 500 mg DR(BID formulation) PO SCH (09:42)
[2016-07-06 09:55] LABS: BASO % 0.8 % (0.0-2.0); EOS # 0.2 K/uL (0.0-0.7); EOS % 5.2 % (0.0-4.0); HEMATOCRIT 36.3 % (34.0-47.0); LYMPH # 1.8 K/uL (1.0-4.3); LYMPH % 38.3 % (20.0-40.0); MEAN CELL VOLUME 88.4 fl (81.0-99.0); MEAN CORPUSCULAR HEMOGLOBIN 29.3 pg (27.0-31.0); MEAN CORPUSCULAR HGB CONC 33.1 g/dL (33.0-37.0); MEAN PLATELET VOLUME 8.5 fl (7.2-11.7); MONO # 0.5 K/uL (0.0-0.8); MONO % 11.1 % (0.0-10.0); NEUT # 2.1 K/uL (1.8-7.0); NEUT % 44.6 % (50.0-75.0); RED CELL DISTRIBUTION WIDTH 12.9 % (11.5-14.5); WHITE BLOOD COUNT 4.7 K/uL (4.8-10.8)
[2016-07-06 10:50] LABS: CHLORIDE 103 mmol/L (98-107); POTASSIUM 3.7 MMOL/L (3.6-5.0); SODIUM 139 mmol/l (132-148)
[2016-07-06 10:53] LABS: BLOOD UREA NITROGEN 17 mg/dl (7-17); CARBON DIOXIDE 28 mmol/L (22-30); GFR AFRICAN-AMERICAN > 60; GLUCOSE,RANDOM 85 mg/dL (65-105)
[2016-07-06] MEDS: Divalproex 250 mg DR(BID formulation) PO SCH (17:06)
--- NOTE | 2016-07-07 08:58 | PCM.PYCHPN ---
Psychiatric Progress Note - Psychiatric Progress Note Patient seen today, length of contact: Patient evaluated, case discussed with team, chart reviewed Patient Chief Complaint: "I'm okay" Problems Identified/Issues Discussed: Patient has been calmer and less paranoid. She has not had any episodes of aggression or agitation towards staff yesterday or today. She has been sleeping intermittently during the day as well as at night. No acute medical complaints. She has been eating and sleeping well. NO AH/VH/SI/HI. Insurance still pending for her to be transferred to a lobsterman living facility. Diagnostic Results: VPA 06/22/16- 60.4 Medication Change: No Medical Record Reviewed: Yes Mental Status Examination - Cognitive Function Orientation: Person, Situation Memory: Impaired Attention: Poor Concentration: Poor Association: Loose Fund of Knowledge: Poor (Poor due to dementia) Decription of patient's judgement and insights: Poor insight/judgment - Mood Mood: Neutral - Affect Affect: Broad - Speech Speech: Appropriate - Formal Thought Process Formal Thought Process: Paranoia (Not expressing paranoia towards staff today, but was paranoia yesterday), Loosening of associations Psychotic Thoughts and Behaviors: No AH/VH, +Delusional attachment to her stuff john doll, +fluctuating beliefs - Suicidal Ideation Suicidal Ideation: No - Homicidal Ideation Homicidal Ideation: No Goal/Treatment Plan - Goal/Treatment Plan Need for Continued Stay: Remain at risks for inpatient hospitalization, Severe functional impairment Progress Toward Problem(s) and Goals/Treatment Plan: Impression: 40 yo female with dementia with behavioral disturbances, due to h/o cardiac arrest and complications related to anoxia. Patient calm, cooperative, with less paranoia. She is improving clinically and is at her baseline of functioning. Plan: -Individual, group and milieu tx -Continue Depakote 500 mg AM/ 750 mg PO @1700 -Continue Zyprexa 10 mg PO Daily @1700 -Disposition planning: insurance pending, then will refer to a long-term facility as she is not able to care for herself Estimated Date of D/C: 07/14/16 (Pending insurance for lobsterman placement)
[2016-07-07] MEDS: Multivitamin With Minerals Tab PO SCH (09:17)
[2016-07-07] MEDS: Divalproex 500 mg DR(BID formulation) PO SCH (09:17)
[2016-07-07] MEDS: Divalproex 250 mg DR(BID formulation) PO SCH (17:12)
--- NOTE | 2016-07-08 08:47 | PCM.PYCHPN ---
Psychiatric Progress Note - Psychiatric Progress Note Patient seen today, length of contact: Patient evaluated, case discussed with team, chart reviewed Patient Chief Complaint: "I'm okay" Problems Identified/Issues Discussed: No significant events yesterday or overnight. The patient continues to be disoriented as per her baseline. Patient has been calmer and less paranoid. She has not had any recent episodes of aggression or agitation towards staff. No acute medical complaints. She has been eating and sleeping well. NO AH/VH/SI /HI. Insurance still pending for her to be transferred to a intermodal truck driver living facility. Diagnostic Results: VPA 06/22/16- 60.4 Medication Change: No Medical Record Reviewed: Yes Mental Status Examination - Cognitive Function Orientation: Person, Situation Memory: Impaired Attention: Poor Concentration: Poor Association: Loose Fund of Knowledge: Poor (Poor due to dementia) Decription of patient's judgement and insights: Poor insight, limited judgment due to dementia - Mood Mood: Neutral - Affect Affect: Broad - Speech Speech: Appropriate - Formal Thought Process Formal Thought Process: Loosening of associations Psychotic Thoughts and Behaviors: +Various fluctuating beliefs, +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 Patient calm, cooperative, with less paranoia. She is improving clinically and is at her baseline of functioning. Plan: -Individual, group and milieu tx -Continue Depakote 500 mg AM/ 750 mg PO @1700 -Continue Zyprexa 10 mg PO Daily @1700 -Disposition planning: insurance pending, then will refer to a long-term facility as she is not able to care for herself Estimated Date of D/C: 07/17/16 (Pending insurance for group home placement)
[2016-07-08] MEDS: Multivitamin With Minerals Tab PO SCH (10:04)
[2016-07-08] MEDS: Divalproex 500 mg DR(BID formulation) PO SCH (10:04)
[2016-07-08] MEDS ORDERED: Magnesium Hydroxide Susp 30 ml UD PO PRN (10:09)
[2016-07-08] MEDS ORDERED: Alum-Mag Hydrox-Simethicone Susp (30 mL) PO PRN (10:09)
[2016-07-08] MEDS: Divalproex 250 mg DR(BID formulation) PO SCH (16:53)
[2016-07-09] MEDS: Multivitamin With Minerals Tab PO SCH (08:10)
[2016-07-09] MEDS: Divalproex 500 mg DR(BID formulation) PO SCH (08:10)
--- NOTE | 2016-07-09 09:01 | PCM.PYCHPN ---
Psychiatric Progress Note - Psychiatric Progress Note Patient seen today, length of contact: Patient evaluated, case discussed with team, chart reviewed Patient Chief Complaint: "I'm okay" Problems Identified/Issues Discussed: Patient continues to have intermittent periods of paranoia, where she gets irritable towards staff. Patient has not had any recent episodes of agitation, but her paranoia seems to be increasing steadily. The patient continues to be disoriented as per her baseline. No acute medical complaints. She has been eating and sleeping well. NO AH/VH/SI/HI. Insurance still pending for her to be transferred to a vermin exterminator living facility. Diagnostic Results: VPA 06/22/16- 60.4 Medication Change: Yes (Increase Zyprexa to 12.5 mg PO Daily@1700) Medical Record Reviewed: Yes Mental Status Examination - Cognitive Function Orientation: Person, Situation Memory: Impaired Attention: Poor Concentration: Poor Association: Loose Fund of Knowledge: Poor (Poor due to dementia) Decription of patient's judgement and insights: Poor insight and limited judgment due to dementia - Mood Mood: Neutral - Affect Affect: Broad - Speech Speech: Appropriate - Formal Thought Process Formal Thought Process: Loosening of associations Psychotic Thoughts and Behaviors: +Paranoia +Delusional attachment to her john doll +Various delusional beliefs - Suicidal Ideation Suicidal Ideation: No - Homicidal Ideation Homicidal Ideation: No Goal/Treatment Plan - Goal/Treatment Plan Need for Continued Stay: Remain at risks for inpatient hospitalization, Severe functional impairment Progress Toward Problem(s) and Goals/Treatment Plan: Impression: 40 yo female with dementia with behavioral disturbances, due to h/o cardiac arrest and complications related to anoxia. Patient has been increasingly paranoid, will increase Zyprexa at this time and continue to monitor. Plan: -Individual, group and milieu tx -Continue Depakote 500 mg AM/ 750 mg PO @1700 -Increase Zyprexa to 12.5 mg PO Daily @1700 -Disposition planning: insurance pending, then will refer to a long-term facility as she is not able to care for herself Estimated Date of D/C: 08/07/16 (Pending insurance for longterm placement)
[2016-07-09] MEDS: Divalproex 250 mg DR(BID formulation) PO SCH (17:18)
--- NOTE | 2016-07-10 07:55 | PCM.PYCHPN ---
Psychiatric Progress Note - Psychiatric Progress Note Patient seen today, length of contact: Patient evaluated, case discussed with team, chart reviewed Patient Chief Complaint: "I'm good" Problems Identified/Issues Discussed: Patient is tolerating the increase in Zyprexa and denies current adverse effects. No significant events overnight. Patient is calm and cooperative this morning. She is not oriented to location, time or situation as per her demented baseline. She is not expressing paranoia at this time. No acute medical complaints. She has been eating and sleeping well. NO AH/VH/SI/HI. Insurance still pending for her to be transferred to a local company intermodal truck driver living facility. Diagnostic Results: VPA 06/22/16- 60.4 Medication Change: No Medical Record Reviewed: Yes Mental Status Examination - Cognitive Function Orientation: Person, Situation Memory: Impaired Attention: Poor Concentration: Poor Association: Loose Fund of Knowledge: Poor (Poor due to dementia) Decription of patient's judgement and insights: Poor insight, limited judgment due to dementia, but patient has been in good behavioral control - Mood Mood: Neutral - Affect Affect: Broad - Speech Speech: Appropriate - Formal Thought Process Formal Thought Process: Loosening of associations Psychotic Thoughts and Behaviors: Denies AH/VH/paranoia - Suicidal Ideation Suicidal Ideation: No - Homicidal Ideation Homicidal Ideation: No Goal/Treatment Plan - Goal/Treatment Plan Need for Continued Stay: Remain at risks for inpatient hospitalization, Severe functional impairment Progress Toward Problem(s) and Goals/Treatment Plan: Impression: 40 yo female with dementia with behavioral disturbances, due to h/o cardiac arrest and complications related to anoxia. Plan: -Individual, group and milieu tx -Continue Depakote 500 mg AM/ 750 mg PO @1700 -Continue Zyprexa 12.5 mg PO Daily @1700 -Disposition planning: insurance pending, then will refer to a long-term facility as she is not able to care for herself Estimated Date of D/C: 08/07/16 (Pending insurance for prison placement)
[2016-07-10] MEDS: Multivitamin With Minerals Tab PO SCH (09:18)
[2016-07-10] MEDS: Divalproex 500 mg DR(BID formulation) PO SCH (09:19)
--- NOTE | 2016-07-10 11:31 | CP.PCM.PN ---
Subjective - Date & Time of Evaluation Date of Evaluation: 07/10/16 Time of Evaluation: 07:30 - Subjective Subjective: Patient seen and examined at bedside, laying comfortably in bed, in no acute distress, awake/alert, follow commands, cooperative with questions and physical exam. Tolerating PO diet. Reports normal urine and stool output. Denies chest pain, SOB, n/v or weakness. Objective - Vital Signs/Intake and Output Vital Signs (last 24 hours): Temp Pulse Resp BP Pulse Ox 97.2 F L 70 18 108/70 99 07/10/16 05:27 07/10/16 09:20 07/10/16 05:27 07/10/16 09:20 06/13/16 06:00 - Medications Medications: Current Medications Acetaminophen (Tylenol 325mg Tab) 650 mg PO Q4 PRN PRN Reason: Pain, moderate (4-7) Al Hydrox/Mg Hydrox/Simethicone (Maalox Plus 30 Ml) 30 ml PO Q6 PRN PRN Reason: Indigestion / Heartburn Amiodarone HCl (Cordarone) 200 mg PO DAILY [facility] Last Admin: 07/10/16 09:20 Dose: 200 mg Apixaban (Eliquis) 2.5 mg PO DAILY [facility] PRN Reason: Protocol Last Admin: 07/10/16 09:20 Dose: 2.5 mg Diphenhydramine HCl (Benadryl) 50 mg PO Q12 PRN PRN Reason: Agitation Last Admin: 07/08/16 01:05 Dose: 50 mg Diphenhydramine HCl (Benadryl) 50 mg IM Q12 PRN PRN Reason: Agitation Divalproex Sodium (Depakote Dr(*Bid*)) 500 mg PO DAILY [facility] Last Admin: 07/10/16 09:19 Dose: 500 mg Divalproex Sodium (Depakote Dr(*Bid*)) 750 mg PO DAILY@1700 [facility] Last Admin: 07/09/16 17:18 Dose: 750 mg Ferrous Sulfate (Feosol) 325 mg PO DAILY [facility] Last Admin: 07/10/16 09:19 Dose: 325 mg Haloperidol (Haldol) 5 mg PO Q12 PRN PRN Reason: Agitation Last Admin: 07/03/16 23:28 Dose: 5 mg Haloperidol Lactate (Haldol) 5 mg IM Q12 PRN PRN Reason: Agitation Last Admin: 06/22/16 17:12 Dose: 5 mg Lorazepam (Ativan) 1 mg PO Q8 PRN PRN Reason: Anxiety Last Admin: 07/06/16 00:05 Dose: 1 mg Magnesium Hydroxide (Milk Of Magnesia) 30 ml PO HS PRN PRN Reason: Constipation Multivitamins/Minerals (Therapeutic-M Tab) 1 tab PO DAILY [facility] Last Admin: 07/10/16 09:18 Dose: 1 tab Olanzapine (Zyprexa) 10 mg PO DAILY@1700 [facility] Last Admin: 07/09/16 17:21 Dose: 10 mg Olanzapine (Zyprexa) 2.5 mg PO DAILY@1700 [facility] Last Admin: 07/09/16 17:21 Dose: 2.5 mg - Labs Labs: 07/06/16 09:43 07/06/16 09:43 - Constitutional Appears: No Acute Distress - Head Exam Head Exam: ATRAUMATIC, NORMOCEPHALIC - Eye Exam Eye Exam: EOMI, PERRL - ENT Exam ENT Exam: Mucous Membranes Moist - Neck Exam Neck Exam: Full ROM. absent: Lymphadenopathy - Respiratory Exam Respiratory Exam: Clear to Ausculation Bilateral. absent: Rales, Rhonchi, Wheezes - Cardiovascular Exam Cardiovascular Exam: REGULAR RHYTHM, +S1, +S2 - GI/Abdominal Exam GI & Abdominal Exam: Soft, Normal Bowel Sounds. absent: Tenderness - Extremities Exam Extremities Exam: Full ROM. absent: Calf Tenderness, Pedal Edema - Back Exam Back Exam: absent: CVA tenderness (L), CVA tenderness (R) - Psychiatric Exam Psychiatric exam: Normal Affect, Normal Mood - Skin Skin Exam: Dry, Intact Assessment and Plan - Assessment and Plan (Free Text) Assessment: 40 year old female with anoxic encephalopathy s/p cardiac arrest with notable behavior disturbances. Patient with TSH 1.02 (within normal limits) on 06/17/16, CBC within normal limits on 07/06/16. 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 -S/P V-fib secondary to cardiomyopathy; Echo EF: ~ 15-20% -Continue with present management. -Eliquis 2.5mg daily (CBC within normal limits on 07/06/16) -Amiodarone 200mg PO daily (last TSH 1.02 on 06/17/16 = within normal limits ) -Heart Healthy Diet -Pending insurance approval for placement into half-way care, patient has temporary guardian. 2) DVT prophylaxis -patient is on Eliquis as above -patient ambulates
[2016-07-10] MEDS: Divalproex 250 mg DR(BID formulation) PO SCH (18:36)
--- NOTE | 2016-07-11 11:07 | PCM.PYCHPN ---
Psychiatric Progress Note - Psychiatric Progress Note Patient seen today, length of contact: discussed with staff Patient Chief Complaint: no c/o Problems Identified/Issues Discussed: pt with no aggression/agitation. less mood lability reported. sleeping currently. no evidence of medication side effects. Medication Change: No Medical Record Reviewed: Yes Mental Status Examination - Cognitive Function Orientation: Person, Situation Memory: Impaired Attention: Poor Concentration: Poor Association: Loose Fund of Knowledge: Poor (Poor due to dementia) Decription of patient's judgement and insights: poor - Mood Mood: Neutral - Affect Affect: Broad - Speech Speech: Appropriate - Formal Thought Process Formal Thought Process: Paranoia, Loosening of associations Psychotic Thoughts and Behaviors: staff reports some episodes of paranoid thoughts expressed - Suicidal Ideation Suicidal Ideation: No - Homicidal Ideation Homicidal Ideation: No Goal/Treatment Plan - Goal/Treatment Plan Need for Continued Stay: Remain at risks for inpatient hospitalization, Severe functional impairment Progress Toward Problem(s) and Goals/Treatment Plan: vascular dementia with with behavioral disturbance continue current treatment per primary team Estimated Date of D/C: 08/07/16 (Pending insurance for adjunct faculty for medical terminology placement)
[2016-07-11] MEDS: Divalproex 500 mg DR(BID formulation) PO SCH (11:17)
[2016-07-11] MEDS: Multivitamin With Minerals Tab PO SCH (11:17)
[2016-07-11] MEDS: Divalproex 250 mg DR(BID formulation) PO SCH (16:31)
--- NOTE | 2016-07-12 11:04 | PCM.PYCHPN ---
Psychiatric Progress Note - Psychiatric Progress Note Patient seen today, length of contact: discussed with staff Patient Chief Complaint: no c/o Problems Identified/Issues Discussed: pt with no aggression/agitation. continues to be redirectable . sleeping at night, currently calm and in room. no evidence of medication side effects. Medication Change: No Medical Record Reviewed: Yes Mental Status Examination - Cognitive Function Orientation: Person, Situation Memory: Impaired Attention: Poor Concentration: Poor Association: Loose Fund of Knowledge: Poor (Poor due to dementia) - Mood Mood: Neutral - Affect Affect: Broad - Speech Speech: Appropriate - Formal Thought Process Formal Thought Process: Paranoia, Loosening of associations - Suicidal Ideation Suicidal Ideation: No - Homicidal Ideation Homicidal Ideation: No Goal/Treatment Plan - Goal/Treatment Plan Need for Continued Stay: Remain at risks for inpatient hospitalization, Severe functional impairment Progress Toward Problem(s) and Goals/Treatment Plan: vascular dementia with with behavioral disturbance continue current treatment per primary team Estimated Date of D/C: 08/07/16 (Pending insurance for termite helper placement)
[2016-07-12] MEDS: Divalproex 500 mg DR(BID formulation) PO SCH (12:00)
[2016-07-12] MEDS: Multivitamin With Minerals Tab PO SCH (12:02)
[2016-07-12] MEDS: Divalproex 250 mg DR(BID formulation) PO SCH (17:18)
[2016-07-13] MEDS: Multivitamin With Minerals Tab PO SCH (08:13)
--- NOTE | 2016-07-13 08:13 | PCM.PYCHPN ---
Psychiatric Progress Note - Psychiatric Progress Note Patient seen today, length of contact: Patient evaluated, case discussed with team Patient Chief Complaint: "I'm okay." Problems Identified/Issues Discussed: No significant events over the weekend, no episodes of aggression or agitation. Patient is not currently expressing paranoid ideation. No adverse effects to medications noted. She is not oriented to location, time or situation as per her demented baseline. No acute medical complaints or pain. She has been eating and sleeping well. NO AH/VH/SI/HI. Insurance still pending for her to be transferred to a long-term living facility. Diagnostic Results: VPA 06/22/16- 60.4 Medication Change: No Medical Record Reviewed: Yes Mental Status Examination - Cognitive Function Orientation: Person, Situation Memory: Impaired Attention: Poor Concentration: Poor Association: Loose Fund of Knowledge: Poor (Poor due to dementia) Decription of patient's judgement and insights: Poor insight, limited judgment due to dementia - Mood Mood: Neutral - Affect Affect: Broad - Speech Speech: Appropriate - Formal Thought Process Formal Thought Process: Loosening of associations Psychotic Thoughts and Behaviors: NO AH/VH. +Delusional attachment to stuffed Joseph doll +Various fluctuating beliefs - Suicidal Ideation Suicidal Ideation: No - Homicidal Ideation Homicidal Ideation: No Goal/Treatment Plan - Goal/Treatment Plan Need for Continued Stay: Remain at risks for inpatient hospitalization, Severe functional impairment Progress Toward Problem(s) and Goals/Treatment Plan: Impression: 40 yo female with dementia with behavioral disturbances, due to h/o cardiac arrest and complications related to anoxia. Plan: -Individual, group and milieu tx -Continue Depakote 500 mg AM/ 750 mg PO @1700 -Continue Zyprexa 12.5 mg PO Daily @1700 -Disposition planning: insurance pending, then will refer to a long-term facility as she is not able to care for herself Estimated Date of D/C: 08/07/16 (Pending insurance for long-term placement)
[2016-07-13] MEDS: Divalproex 500 mg DR(BID formulation) PO SCH (08:14)
--- NOTE | 2016-07-13 15:31 | CP.PCM.PN ---
Subjective - Date & Time of Evaluation Date of Evaluation: 07/13/16 Time of Evaluation: 15:00 - Subjective Subjective: Patient seen and examined at bedside, sitting in bed in no acute distress. Reports feeling well, tolerating PO diet, having normal urine and stool output. Denies chest pain, SOB, nausea, vomiting or weakness. Patient has no concerns or complaints at this time. Objective - Vital Signs/Intake and Output Vital Signs (last 24 hours): Temp Pulse Resp BP Pulse Ox 96.8 F L 65 20 114/75 99 07/13/16 06:00 07/13/16 08:20 07/13/16 06:00 07/13/16 08:20 06/13/16 06:00 - Medications Medications: Current Medications Acetaminophen (Tylenol 325mg Tab) 650 mg PO Q4 PRN PRN Reason: Pain, moderate (4-7) Al Hydrox/Mg Hydrox/Simethicone (Maalox Plus 30 Ml) 30 ml PO Q6 PRN PRN Reason: Indigestion / Heartburn Amiodarone HCl (Cordarone) 200 mg PO DAILY [facility] Last Admin: 07/13/16 08:20 Dose: 200 mg Apixaban (Eliquis) 2.5 mg PO DAILY [facility] PRN Reason: Protocol Last Admin: 07/13/16 08:14 Dose: 2.5 mg Diphenhydramine HCl (Benadryl) 50 mg PO Q12 PRN PRN Reason: Agitation Last Admin: 07/08/16 01:05 Dose: 50 mg Diphenhydramine HCl (Benadryl) 50 mg IM Q12 PRN PRN Reason: Agitation Divalproex Sodium (Depakote Dr(*Bid*)) 500 mg PO DAILY [facility] Last Admin: 07/13/16 08:14 Dose: 500 mg Divalproex Sodium (Depakote Dr(*Bid*)) 750 mg PO DAILY@1700 [facility] Last Admin: 07/12/16 17:18 Dose: 750 mg Ferrous Sulfate (Feosol) 325 mg PO DAILY [facility] Last Admin: 07/13/16 08:14 Dose: 325 mg Haloperidol (Haldol) 5 mg PO Q12 PRN PRN Reason: Agitation Last Admin: 07/03/16 23:28 Dose: 5 mg Haloperidol Lactate (Haldol) 5 mg IM Q12 PRN PRN Reason: Agitation Last Admin: 06/22/16 17:12 Dose: 5 mg Lorazepam (Ativan) 1 mg PO Q8 PRN PRN Reason: Anxiety Last Admin: 07/06/16 00:05 Dose: 1 mg Magnesium Hydroxide (Milk Of Magnesia) 30 ml PO HS PRN PRN Reason: Constipation Multivitamins/Minerals (Therapeutic-M Tab) 1 tab PO DAILY [facility] Last Admin: 07/13/16 08:13 Dose: 1 tab Olanzapine (Zyprexa) 10 mg PO DAILY@1700 [facility] Last Admin: 07/12/16 17:18 Dose: 10 mg Olanzapine (Zyprexa) 2.5 mg PO DAILY@1700 [facility] Last Admin: 07/12/16 17:19 Dose: 2.5 mg - Labs Labs: 07/06/16 09:43 07/06/16 09:43 - Constitutional Appears: No Acute Distress - Head Exam Head Exam: ATRAUMATIC, NORMOCEPHALIC - Eye Exam Eye Exam: EOMI, PERRL - ENT Exam ENT Exam: Mucous Membranes Moist - Neck Exam Neck Exam: Full ROM. absent: Lymphadenopathy - Respiratory Exam Respiratory Exam: Clear to Ausculation Bilateral. absent: Rales, Rhonchi, Wheezes - Cardiovascular Exam Cardiovascular Exam: REGULAR RHYTHM, +S1, +S2 - GI/Abdominal Exam GI & Abdominal Exam: Soft, Normal Bowel Sounds. absent: Tenderness - Extremities Exam Extremities Exam: Full ROM. absent: Calf Tenderness, Pedal Edema - Back Exam Back Exam: absent: CVA tenderness (L), CVA tenderness (R) - Neurological Exam Neurological Exam: Alert, Awake, Normal Gait - Psychiatric Exam Psychiatric exam: Normal Affect, Normal Mood - Skin Skin Exam: Dry, Intact Assessment and Plan - Assessment and Plan (Free Text) Plan: 40 year old female with anoxic encephalopathy s/p cardiac arrest with notable behavior disturbances. Patient doing well, no events overnight. Ambulating without difficulty. Awaiting transfer to snf care facility, pending insurance approval. 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 -S/P V-fib secondary to cardiomyopathy; Echo EF: ~ 15-20% -Continue with present management. -Eliquis 2.5mg daily (CBC within normal limits on 07/06/16) -Amiodarone 200mg PO daily (last TSH 1.02 on 06/17/16 = within normal limits ) -Heart Healthy Diet -Pending insurance approval for placement into [facility], patient has temporary guardian. 2) DVT prophylaxis -patient is on Eliquis as above -patient ambulates
[2016-07-13] MEDS: Divalproex 250 mg DR(BID formulation) PO SCH (17:13)
[2016-07-14] MEDS: Divalproex 500 mg DR(BID formulation) PO SCH (08:39)
[2016-07-14] MEDS: Multivitamin With Minerals Tab PO SCH (08:40)
--- NOTE | 2016-07-14 09:30 | PCM.PYCHPN ---
Psychiatric Progress Note - Psychiatric Progress Note Patient seen today, length of contact: Patient evaluated, case discussed with team Patient Chief Complaint: "I'm good." Problems Identified/Issues Discussed: No significant events overnight, no episodes of aggression or agitation. Patient is not currently expressing paranoid ideation. No adverse effects to medications noted. She is not oriented to location, time or situation as per her demented baseline. No acute medical complaints or pain. She has been eating and sleeping well. NO AH/VH/SI/HI. Insurance still pending for her to be transferred to a retirement living facility. Diagnostic Results: VPA 06/22/16- 60.4 Medication Change: No Medical Record Reviewed: Yes Mental Status Examination - Cognitive Function Orientation: Person, Situation Memory: Impaired Attention: Poor Concentration: Poor Association: Loose Fund of Knowledge: Poor (Poor due to dementia) Decription of patient's judgement and insights: Poor insight, limited judgment due to dementia - Mood Mood: Neutral - Affect Affect: Broad - Speech Speech: Appropriate - Formal Thought Process Formal Thought Process: Loosening of associations Psychotic Thoughts and Behaviors: NO AH/VH. +Delusional attachment to Joseph doll and various fluctuating beliefs - Suicidal Ideation Suicidal Ideation: No - Homicidal Ideation Homicidal Ideation: No Goal/Treatment Plan - Goal/Treatment Plan Need for Continued Stay: Remain at risks for inpatient hospitalization, Severe functional impairment Progress Toward Problem(s) and Goals/Treatment Plan: Impression: 40 yo female with dementia with behavioral disturbances, due to h/o cardiac arrest and complications related to anoxia. Plan: -Individual, group and milieu tx -Continue Depakote 500 mg AM/ 750 mg PO @1700 -Continue Zyprexa 12.5 mg PO Daily @1700 -Disposition planning: insurance pending, then will refer to a long-term facility as she is not able to care for herself Estimated Date of D/C: 08/07/16 (Pending insurance for rat exterminator placement)
[2016-07-14] MEDS: Divalproex 250 mg DR(BID formulation) PO SCH (16:01)
--- NOTE | 2016-07-15 07:29 | PCM.PYCHPN ---
Psychiatric Progress Note - Psychiatric Progress Note Patient seen today, length of contact: Patient evaluated, case discussed with team Patient Chief Complaint: "I'm good." Problems Identified/Issues Discussed: Patient slept 4 hours last night, but slept a significant amount during the day yesterday. No significant events overnight, no episodes of aggression or agitation. Patient is not currently expressing paranoid ideation. No adverse effects to medications noted. She is not oriented to location, time or situation as per her demented baseline. No acute medical complaints or pain. She has been eating and sleeping well. NO AH/VH/SI/HI. Insurance still pending for her to be transferred to a long term care pharmacist living facility. Diagnostic Results: VPA 06/22/16- 60.4 Medication Change: No Medical Record Reviewed: Yes Mental Status Examination - Cognitive Function Orientation: Person, Situation Memory: Impaired Attention: Poor Concentration: Poor Association: Loose Fund of Knowledge: Poor (Poor due to dementia) Decription of patient's judgement and insights: Poor insight and limited judgment due to dementia - Mood Mood: Neutral - Affect Affect: Broad - Speech Speech: Appropriate - Formal Thought Process Formal Thought Process: Loosening of associations Psychotic Thoughts and Behaviors: NO AH/VH/paranoia. +Delusional attachment to her Joseph doll and various fluctuating beliefs - Suicidal Ideation Suicidal Ideation: No - Homicidal Ideation Homicidal Ideation: No Goal/Treatment Plan - Goal/Treatment Plan Need for Continued Stay: Remain at risks for inpatient hospitalization, Severe functional impairment Progress Toward Problem(s) and Goals/Treatment Plan: Impression: 40 yo female with dementia with behavioral disturbances, due to h/o cardiac arrest and complications related to anoxia. Plan: -Individual, group and milieu tx -Continue Depakote 500 mg AM/ 750 mg PO @1700 -Continue Zyprexa 12.5 mg PO Daily @1700 -Disposition planning: insurance pending, then will refer to a long-term facility as she is not able to care for herself Estimated Date of D/C: 08/07/16 (Pending insurance for long term care pharmacist placement)
[2016-07-15] MEDS: Multivitamin With Minerals Tab PO SCH (08:25)
[2016-07-15] MEDS: Divalproex 500 mg DR(BID formulation) PO SCH (08:26)
[2016-07-15] MEDS: Divalproex 250 mg DR(BID formulation) PO SCH (16:06)
--- NOTE | 2016-07-16 09:38 | PCM.PYCHPN ---
Psychiatric Progress Note - Psychiatric Progress Note Patient seen today, length of contact: Patient evaluated, case discussed with team Patient Chief Complaint: "I'm good." Problems Identified/Issues Discussed: Patient has been sleeping more during the day and less at night. No significant events overnight, no episodes of aggression or agitation. Patient is not currently expressing paranoid ideation. No adverse effects to medications noted. She is not oriented to location, time or situation as per her demented baseline. No acute medical complaints or pain. She has been eating and sleeping well. NO AH/VH/SI/HI. Insurance still pending for her to be transferred to a termite control service representative living facility. Diagnostic Results: VPA 06/22/16- 60.4 Medication Change: No Medical Record Reviewed: Yes Mental Status Examination - Cognitive Function Orientation: Person, Situation Memory: Impaired Attention: Poor Concentration: Poor Association: Loose Fund of Knowledge: Poor (Poor due to dementia) Decription of patient's judgement and insights: Poor insight and judgment due to dementia - Mood Mood: Neutral - Affect Affect: Broad - Speech Speech: Appropriate - Formal Thought Process Formal Thought Process: Loosening of associations Psychotic Thoughts and Behaviors: NO AH/VH/paranoia; +Delusional attachment to her Joseph doll, +Various fluctuating beliefs about where she is and her family - Suicidal Ideation Suicidal Ideation: No - Homicidal Ideation Homicidal Ideation: No Goal/Treatment Plan - Goal/Treatment Plan Need for Continued Stay: Remain at risks for inpatient hospitalization, Severe functional impairment Progress Toward Problem(s) and Goals/Treatment Plan: Impression: 40 yo female with dementia with behavioral disturbances, due to h/o cardiac arrest and complications related to anoxia. Plan: -Individual, group and milieu tx -Continue Depakote 500 mg AM/ 750 mg PO @1700 -Continue Zyprexa 12.5 mg PO Daily @1700 -Disposition planning: insurance pending, then will refer to a long-term facility as she is not able to care for herself Estimated Date of D/C: 08/07/16 (Pending insurance for [facility] placement)
[2016-07-16] MEDS: Multivitamin With Minerals Tab PO SCH (14:26)
[2016-07-16] MEDS: Divalproex 500 mg DR(BID formulation) PO SCH (14:26)
[2016-07-16] MEDS: Divalproex 250 mg DR(BID formulation) PO SCH (21:03)
--- NOTE | 2016-07-17 07:35 | CP.PCM.PN ---
Subjective - Date & Time of Evaluation Date of Evaluation: 07/17/16 Time of Evaluation: 07:35 - Subjective Subjective: Patient seen at bedside resting comfortably, in no acute distress. No acute events overnight. Objective - Vital Signs/Intake and Output Vital Signs (last 24 hours): Temp Pulse Resp BP Pulse Ox 97.2 F L 76 18 108/70 99 07/17/16 05:42 07/17/16 05:42 07/17/16 05:42 07/17/16 05:42 06/13/16 06:00 - Medications Medications: Current Medications Acetaminophen (Tylenol 325mg Tab) 650 mg PO Q4 PRN PRN Reason: Pain, moderate (4-7) Al Hydrox/Mg Hydrox/Simethicone (Maalox Plus 30 Ml) 30 ml PO Q6 PRN PRN Reason: Indigestion / Heartburn Amiodarone HCl (Cordarone) 200 mg PO DAILY [facility] Last Admin: 07/16/16 18:05 Dose: 200 mg Diphenhydramine HCl (Benadryl) 50 mg PO Q12 PRN PRN Reason: Agitation Last Admin: 07/08/16 01:05 Dose: 50 mg Diphenhydramine HCl (Benadryl) 50 mg IM Q12 PRN PRN Reason: Agitation Divalproex Sodium (Depakote Dr(*Bid*)) 500 mg PO DAILY [facility] Last Admin: 07/16/16 14:26 Dose: 500 mg Divalproex Sodium (Depakote Dr(*Bid*)) 750 mg PO DAILY@1700 [facility] Last Admin: 07/16/16 21:03 Dose: 750 mg Ferrous Sulfate (Feosol) 325 mg PO DAILY [facility] Last Admin: 07/16/16 14:26 Dose: 325 mg Haloperidol (Haldol) 5 mg PO Q12 PRN PRN Reason: Agitation Last Admin: 07/03/16 23:28 Dose: 5 mg Haloperidol Lactate (Haldol) 5 mg IM Q12 PRN PRN Reason: Agitation Last Admin: 06/22/16 17:12 Dose: 5 mg Lorazepam (Ativan) 1 mg PO Q8 PRN PRN Reason: Anxiety Last Admin: 07/06/16 00:05 Dose: 1 mg Magnesium Hydroxide (Milk Of Magnesia) 30 ml PO HS PRN PRN Reason: Constipation Multivitamins/Minerals (Therapeutic-M Tab) 1 tab PO DAILY [facility] Last Admin: 07/16/16 14:26 Dose: 1 tab Olanzapine (Zyprexa) 10 mg PO DAILY@1700 [facility] Last Admin: 07/16/16 21:03 Dose: 10 mg Olanzapine (Zyprexa) 2.5 mg PO DAILY@1700 [facility] Last Admin: 07/16/16 21:03 Dose: 2.5 mg - Labs Labs: 07/06/16 09:43 07/06/16 09:43 - Constitutional Appears: No Acute Distress - Head Exam Head Exam: ATRAUMATIC, NORMAL INSPECTION - Eye Exam Eye Exam: EOMI, PERRL - Neck Exam Neck Exam: Full ROM - Respiratory Exam Respiratory Exam: Clear to Ausculation Bilateral. absent: Rales, Rhonchi, Wheezes - Cardiovascular Exam Cardiovascular Exam: REGULAR RHYTHM, +S1, +S2 - GI/Abdominal Exam GI & Abdominal Exam: Soft, Normal Bowel Sounds. absent: Tenderness - Extremities Exam Extremities Exam: Full ROM, Normal Inspection. absent: Pedal Edema - Back Exam Back Exam: NORMAL INSPECTION - Neurological Exam Neurological Exam: Awake - Psychiatric Exam Psychiatric exam: Normal Affect, Normal Mood - Skin Skin Exam: Dry, Intact, Warm Assessment and Plan - Assessment and Plan (Free Text) Assessment: 40 year old female with anoxic encephalopathy s/p cardiac arrest with notable behavior disturbances. Awaiting transfer to terminal make up operator care facility, pending insurance approval. 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 -S/P V-fib secondary to cardiomyopathy; Echo EF: ~ 15-20% -Continue with present management. -Eliquis 2.5mg daily (CBC within normal limits on 07/06/16) -Amiodarone 200mg PO daily (last TSH 1.02 on 06/17/16 = within normal limits ) -Heart Healthy Diet -Pending insurance approval for placement into terminal make up operator care, patient has temporary guardian. 2) DVT prophylaxis -patient is on Eliquis as above (2.5mg daily) -patient ambulates
--- NOTE | 2016-07-17 08:41 | PCM.PYCHPN ---
Psychiatric Progress Note - Psychiatric Progress Note Patient seen today, length of contact: Patient evaluated, case discussed with team Patient Chief Complaint: "I'm good." Problems Identified/Issues Discussed: No significant events overnight, no episodes of aggression or agitation. Patient is not currently expressing paranoid ideation. No adverse effects to medications noted. She is not oriented to location, time or situation as per her demented baseline. No acute medical complaints or pain. She has been eating and sleeping well. NO AH/VH/SI/HI. Insurance still pending for her to be transferred to a halfway living facility. Diagnostic Results: VPA 06/22/16- 60.4 Medication Change: No Medical Record Reviewed: Yes Mental Status Examination - Cognitive Function Orientation: Person Memory: Impaired Attention: Poor Concentration: Poor Association: Loose Fund of Knowledge: Poor (Poor due to dementia) Decription of patient's judgement and insights: Poor insight, judgment limited due to dementia - Mood Mood: Neutral - Affect Affect: Broad - Speech Speech: Appropriate - Formal Thought Process Formal Thought Process: Loosening of associations Psychotic Thoughts and Behaviors: NO AH/VH - Suicidal Ideation Suicidal Ideation: No - Homicidal Ideation Homicidal Ideation: No Goal/Treatment Plan - Goal/Treatment Plan Need for Continued Stay: Remain at risks for inpatient hospitalization, Severe functional impairment Progress Toward Problem(s) and Goals/Treatment Plan: Impression: 40 yo female with dementia with behavioral disturbances, due to h/o cardiac arrest and complications related to anoxia. Plan: -Individual, group and milieu tx -Continue Depakote 500 mg AM/ 750 mg PO @1700 -Continue Zyprexa 12.5 mg PO Daily @1700 -Disposition planning: insurance pending, then will refer to a long-term facility as she is not able to care for herself Estimated Date of D/C: 08/07/16 (Pending insurance for halfway placement)
[2016-07-17] MEDS: Multivitamin With Minerals Tab PO SCH (08:44)
[2016-07-17] MEDS: Divalproex 500 mg DR(BID formulation) PO SCH (08:45)
[2016-07-17] MEDS: Divalproex 250 mg DR(BID formulation) PO SCH (16:43)
[2016-07-18 05:47] VITALS: O2SAT 18
[2016-07-18] MEDS: Divalproex 500 mg DR(BID formulation) PO SCH (08:17)
[2016-07-18] MEDS: Multivitamin With Minerals Tab PO SCH (08:19)
--- NOTE | 2016-07-18 09:45 | PCM.PYCHPN ---
Psychiatric Progress Note - Psychiatric Progress Note Patient seen today, length of contact: Patient evaluated, case discussed with team Patient Chief Complaint: "I'm good." Problems Identified/Issues Discussed: No significant events yesterday or overnight, no episodes of aggression or agitation. Patient is not currently expressing paranoid ideation. No adverse effects to medications noted. She is not oriented to location, time or situation as per her demented baseline. No acute medical complaints or pain. She has been eating and sleeping well. NO AH/VH/SI/HI. Insurance still pending for her to be transferred to a delivery man living facility. Diagnostic Results: VPA 06/22/16- 60.4 Medication Change: No Medical Record Reviewed: Yes Mental Status Examination - Cognitive Function Orientation: Person Memory: Impaired Attention: Poor Concentration: Poor Association: Loose Fund of Knowledge: Poor (Poor due to dementia) Decription of patient's judgement and insights: Poor insight/judgment limited by dementia - Mood Mood: Neutral - Affect Affect: Broad - Speech Speech: Appropriate - Formal Thought Process Formal Thought Process: Loosening of associations Psychotic Thoughts and Behaviors: NO AH/VH - Suicidal Ideation Suicidal Ideation: No - Homicidal Ideation Homicidal Ideation: No Goal/Treatment Plan - Goal/Treatment Plan Need for Continued Stay: Remain at risks for inpatient hospitalization, Severe functional impairment Progress Toward Problem(s) and Goals/Treatment Plan: Impression: 40 yo female with dementia with behavioral disturbances, due to h/o cardiac arrest and complications related to anoxia. Plan: -Individual, group and milieu tx -Continue Depakote 500 mg AM/ 750 mg PO @1700 -Continue Zyprexa 12.5 mg PO Daily @1700 -Disposition planning: insurance pending, then will refer to a long-term facility as she is not able to care for herself Estimated Date of D/C: 08/07/16 (Pending insurance for delivery man placement)
[2016-07-18] MEDS: Divalproex 250 mg DR(BID formulation) PO SCH (16:50)
[2016-07-19] MEDS: Multivitamin With Minerals Tab PO SCH (09:49)
[2016-07-19] MEDS: Divalproex 500 mg DR(BID formulation) PO SCH (09:50)
--- NOTE | 2016-07-19 10:44 | PCM.PYCHPN ---
Psychiatric Progress Note - Psychiatric Progress Note Patient seen today, length of contact: Patient evaluated, case discussed with team Patient Chief Complaint: "I'm good." Problems Identified/Issues Discussed: No significant events, no episodes of aggression or agitation. Patient is not currently expressing paranoid ideation. No adverse effects to medications noted. She is not oriented to location, time or situation as per her demented baseline. No acute medical complaints or pain. She has been eating and sleeping well. NO AH/VH/SI/HI. Insurance still pending for her to be transferred to a buttermaker living facility. Diagnostic Results: VPA 06/22/16- 60.4 Medication Change: No Medical Record Reviewed: Yes Mental Status Examination - Cognitive Function Orientation: Person Memory: Impaired Attention: Poor Concentration: Poor Association: Loose Fund of Knowledge: Poor (Poor due to dementia) Decription of patient's judgement and insights: I/J limited due to dementia - Mood Mood: Neutral - Affect Affect: Broad - Speech Speech: Appropriate - Formal Thought Process Formal Thought Process: Loosening of associations Psychotic Thoughts and Behaviors: NO AH/VH, +fluctuating delusions - Suicidal Ideation Suicidal Ideation: No - Homicidal Ideation Homicidal Ideation: No Goal/Treatment Plan - Goal/Treatment Plan Need for Continued Stay: Remain at risks for inpatient hospitalization, Severe functional impairment Progress Toward Problem(s) and Goals/Treatment Plan: Impression: 40 yo female with dementia with behavioral disturbances, due to h/o cardiac arrest and complications related to anoxia. Plan: -Individual, group and milieu tx -Continue Depakote 500 mg AM/ 750 mg PO @1700 -Continue Zyprexa 12.5 mg PO Daily @1700 -Disposition planning: insurance pending, then will refer to a long-term facility as she is not able to care for herself Estimated Date of D/C: 08/07/16 (Pending insurance for buttermaker placement) - Smoking Cessation Smoking Cessation Initiated: No Reason for not providing: Not indicated at this time
[2016-07-19] MEDS: Divalproex 250 mg DR(BID formulation) PO SCH (17:49)
--- NOTE | 2016-07-20 09:38 | CP.PCM.PN ---
Subjective - Date & Time of Evaluation Date of Evaluation: 07/20/16 Time of Evaluation: 09:37 - Subjective Subjective: 40 year old female patient was seen resting comfortably at bedside. Patient is in no acute distress. Objective - Vital Signs/Intake and Output Vital Signs (last 24 hours): Temp Pulse Resp BP Pulse Ox 97.2 F L 74 18 106/58 L 18 L 07/20/16 05:33 07/20/16 05:33 07/20/16 05:33 07/20/16 05:33 07/18/16 05:46 - Medications Medications: Current Medications Acetaminophen (Tylenol 325mg Tab) 650 mg PO Q4 PRN PRN Reason: Pain, moderate (4-7) Al Hydrox/Mg Hydrox/Simethicone (Maalox Plus 30 Ml) 30 ml PO Q6 PRN PRN Reason: Indigestion / Heartburn Amiodarone HCl (Cordarone) 200 mg PO DAILY [facility] Last Admin: 07/19/16 09:50 Dose: 200 mg Apixaban (Eliquis) 2.5 mg PO DAILY [facility] PRN Reason: Protocol Last Admin: 07/19/16 09:50 Dose: 2.5 mg Diphenhydramine HCl (Benadryl) 50 mg PO Q12 PRN PRN Reason: Agitation Last Admin: 07/08/16 01:05 Dose: 50 mg Diphenhydramine HCl (Benadryl) 50 mg IM Q12 PRN PRN Reason: Agitation Divalproex Sodium (Depakote Dr(*Bid*)) 500 mg PO DAILY [facility] Last Admin: 07/19/16 09:50 Dose: 500 mg Divalproex Sodium (Depakote Dr(*Bid*)) 750 mg PO DAILY@1700 [facility] Last Admin: 07/19/16 17:49 Dose: 750 mg Ferrous Sulfate (Feosol) 325 mg PO DAILY [facility] Last Admin: 07/19/16 09:50 Dose: 325 mg Haloperidol (Haldol) 5 mg PO Q12 PRN PRN Reason: Agitation Last Admin: 07/03/16 23:28 Dose: 5 mg Haloperidol Lactate (Haldol) 5 mg IM Q12 PRN PRN Reason: Agitation Last Admin: 06/22/16 17:12 Dose: 5 mg Lorazepam (Ativan) 1 mg PO Q8 PRN PRN Reason: Anxiety Last Admin: 07/19/16 22:28 Dose: 1 mg Magnesium Hydroxide (Milk Of Magnesia) 30 ml PO HS PRN PRN Reason: Constipation Multivitamins/Minerals (Therapeutic-M Tab) 1 tab PO DAILY [facility] Last Admin: 07/19/16 09:49 Dose: 1 tab Olanzapine (Zyprexa) 10 mg PO DAILY@1700 [facility] Last Admin: 07/19/16 17:49 Dose: 10 mg Olanzapine (Zyprexa) 2.5 mg PO DAILY@1700 [facility] Last Admin: 07/19/16 17:49 Dose: 2.5 mg - Labs Labs: 07/06/16 09:43 07/06/16 09:43 - Constitutional Appears: No Acute Distress - Head Exam Head Exam: ATRAUMATIC, NORMAL INSPECTION - Eye Exam Eye Exam: EOMI, PERRL - Respiratory Exam Respiratory Exam: NORMAL BREATHING PATTERN. absent: Rhonchi, Wheezes - Cardiovascular Exam Cardiovascular Exam: REGULAR RHYTHM, +S1, +S2 - GI/Abdominal Exam GI & Abdominal Exam: Soft, Hyperactive Bowel Sounds. absent: Tenderness - Extremities Exam Extremities Exam: Normal Inspection. absent: Tenderness - Neurological Exam Neurological Exam: Awake - Skin Skin Exam: Intact, Normal Color, Warm Assessment and Plan - Assessment and Plan (Free Text) Assessment: 40 year old female with anoxic encephalopathy s/p cardiac arrest with notable behavior disturbances. Awaiting transfer to terminal press operator care facility, pending insurance approval. 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 -S/P V-fib secondary to cardiomyopathy; Echo EF:~15-20% -Continue with present management. -Eliquis 2.5mg daily (CBC within normal limits on 07/06/16) -Amiodarone 200mg PO daily (last TSH 1.02 on 06/17/16 = within normal limits ) -Heart Healthy Diet -Pending insurance approval for placement into intermediate care, patient has temporary guardian. 2) DVT prophylaxis -patient is on Eliquis as above (2.5mg daily) -patient ambulates
[2016-07-20] MEDS: Divalproex 500 mg DR(BID formulation) PO SCH (14:34)
[2016-07-20] MEDS: Multivitamin With Minerals Tab PO SCH (14:36)
[2016-07-20] MEDS: Divalproex 250 mg DR(BID formulation) PO SCH (21:13)
[2016-07-21 07:41] LABS: HEMATOCRIT 38.5 % (34.0-47.0); MEAN CELL VOLUME 88.6 fl (81.0-99.0); MEAN CORPUSCULAR HEMOGLOBIN 28.9 pg (27.0-31.0); MEAN CORPUSCULAR HGB CONC 32.6 g/dL (33.0-37.0); RED CELL DISTRIBUTION WIDTH 12.9 % (11.5-14.5); WHITE BLOOD COUNT 5.9 K/uL (4.8-10.8)
[2016-07-21 07:43] LABS: BLOOD UREA NITROGEN 22 mg/dl (7-17); CALCIUM 8.9 mg/dL (8.4-10.2); CARBON DIOXIDE 25 mmol/L (22-30); CHLORIDE 101 mmol/L (98-107); GFR AFRICAN-AMERICAN > 60; GLUCOSE,RANDOM 79 mg/dL (65-105); POTASSIUM 3.8 MMOL/L (3.6-5.0); SODIUM 142 mmol/l (132-148)
[2016-07-21] MEDS: Multivitamin With Minerals Tab PO SCH (08:29)
[2016-07-21] MEDS: Divalproex 500 mg DR(BID formulation) PO SCH (08:29)
--- NOTE | 2016-07-21 09:44 | PCM.PYCHPN ---
Psychiatric Progress Note - Psychiatric Progress Note Patient seen today, length of contact: Patient evaluated, case discussed with team Patient Chief Complaint: "I'm good." Problems Identified/Issues Discussed: No significant events yesterday or today, no episodes of aggression or agitation. Patient is not currently expressing paranoid ideation. No adverse effects to medications noted. She is not oriented to location, time or situation as per her demented baseline. No acute medical complaints or pain. She has been eating and sleeping well. NO AH/VH/SI/HI. Insurance still pending for her to be transferred to a exterminator termite living facility. Diagnostic Results: VPA 06/22/16- 60.4 Medication Change: No Medical Record Reviewed: Yes Mental Status Examination - Cognitive Function Orientation: Person Memory: Impaired Attention: Poor Concentration: Poor Association: Loose Fund of Knowledge: Poor (Poor due to dementia) Decription of patient's judgement and insights: Poor insight, limited judgment due to dementia - Mood Mood: Neutral - Affect Affect: Broad - Speech Speech: Appropriate - Formal Thought Process Formal Thought Process: Loosening of associations Psychotic Thoughts and Behaviors: No AH/VH. +Various fluctuating beliefs and delusional attachment to her stuff Joseph doll - Suicidal Ideation Suicidal Ideation: No - Homicidal Ideation Homicidal Ideation: No Goal/Treatment Plan - Goal/Treatment Plan Need for Continued Stay: Remain at risks for inpatient hospitalization, Severe functional impairment Progress Toward Problem(s) and Goals/Treatment Plan: Impression: 40 yo female with dementia with behavioral disturbances, due to h/o cardiac arrest and complications related to anoxia. Plan: -Individual, group and milieu tx -Continue Depakote 500 mg AM/ 750 mg PO @1700 -Continue Zyprexa 12.5 mg PO Daily @1700 -Disposition planning: insurance pending, then will refer to a long-term facility as she is not able to care for herself Estimated Date of D/C: 08/07/16 (Pending insurance for [facility] placement)
[2016-07-21] MEDS: Divalproex 250 mg DR(BID formulation) PO SCH (16:18)
--- NOTE | 2016-07-21 23:08 | PCM.PYCHPN ---
Psychiatric Progress Note - Psychiatric Progress Note Patient seen today, length of contact: late note pt seen [id number] chart reviewed case discussed with team Patient Chief Complaint: seen laying in room holding stuffed animal resting then seen ambulating in unit. staff report pt has been calmer has been adherent with treatment. pt is pending placement [facility] . t Problems Identified/Issues Discussed: impaired cognitive function impaired self care delusional disorder history of medical issues multiple substance use history intubation, anoxia Medical Problems: per chart Diagnostic Results: per psychiatry per medicine per nursing per social work per recreational therapy DSM 5 Symptoms Update: impaired thought process alteration in cognitive performance Medication Change: No Medical Record Reviewed: Yes Mental Status Examination - Cognitive Function Orientation: Person Memory: Impaired Attention: Poor Concentration: Poor Association: Loose Fund of Knowledge: Poor (Poor due to dementia) Decription of patient's judgement and insights: poor - Mood Mood: Neutral - Affect Affect: Broad - Speech Speech: Appropriate - Formal Thought Process Formal Thought Process: Loosening of associations - Suicidal Ideation Suicidal Ideation: No - Homicidal Ideation Homicidal Ideation: No Goal/Treatment Plan - Goal/Treatment Plan Need for Continued Stay: Remain at risks for inpatient hospitalization, Severe functional impairment Progress Toward Problem(s) and Goals/Treatment Plan: inpt milieu adjust meds per status q 15min rounds and per clinical status Nursing support with adls discharge planning progress [facility] Estimated Date of D/C: 08/07/16 (Pending insurance for [facility] placement) - Smoking Cessation Smoking Cessation Initiated: No
[2016-07-22] MEDS: Divalproex 500 mg DR(BID formulation) PO SCH (08:20)
[2016-07-22] MEDS: Multivitamin With Minerals Tab PO SCH (08:20)
--- NOTE | 2016-07-22 10:03 | PCM.PYCHPN ---
Psychiatric Progress Note - Psychiatric Progress Note Patient seen today, length of contact: Patient evaluated, case discussed with team, chart reviewed Patient Chief Complaint: "I'm good." Problems Identified/Issues Discussed: No significant events overnight, no episodes of aggression or agitation. Patient is not currently expressing paranoid ideation. No adverse effects to medications noted. She is not oriented to location, time or situation as per her demented baseline. No acute medical complaints or pain. She has been eating and sleeping well. NO AH/VH/SI/HI. Insurance still pending for her to be transferred to a long term care pharmacist living facility. Diagnostic Results: VPA 06/22/16- 60.4 Medication Change: No Medical Record Reviewed: Yes Mental Status Examination - Cognitive Function Orientation: Person Memory: Impaired Attention: Poor Concentration: Poor Association: Loose Fund of Knowledge: Poor (Poor due to dementia) Decription of patient's judgement and insights: Poor insight, judgment limited by dementia - Mood Mood: Neutral - Affect Affect: Broad - Speech Speech: Appropriate - Formal Thought Process Formal Thought Process: Loosening of associations Psychotic Thoughts and Behaviors: NO AH/VH - Suicidal Ideation Suicidal Ideation: No - Homicidal Ideation Homicidal Ideation: No Goal/Treatment Plan - Goal/Treatment Plan Need for Continued Stay: Remain at risks for inpatient hospitalization, Severe functional impairment Progress Toward Problem(s) and Goals/Treatment Plan: Impression: 40 yo female with dementia with behavioral disturbances, due to h/o cardiac arrest and complications related to anoxia. Plan: -Individual, group and milieu tx -Continue Depakote 500 mg AM/ 750 mg PO @1700 -Continue Zyprexa 12.5 mg PO Daily @1700 -Disposition planning: insurance pending, then will refer to a long-term facility as she is not able to care for herself Estimated Date of D/C: 08/07/16 (Pending insurance for [facility] placement)
[2016-07-22] MEDS: Divalproex 250 mg DR(BID formulation) PO SCH (16:16)
--- NOTE | 2016-07-23 08:10 | PCM.PYCHPN ---
Psychiatric Progress Note - Psychiatric Progress Note Patient seen today, length of contact: Patient evaluated, case discussed with team, chart reviewed Patient Chief Complaint: "I'm good." Problems Identified/Issues Discussed: No significant events, episodes of aggression or agitation. Patient is not currently expressing paranoid ideation. No adverse effects to medications noted. She is not oriented to location, time or situation as per her demented baseline. No acute medical complaints or pain. She has been eating and sleeping well. NO AH/VH/SI/HI. Insurance still pending for her to be transferred to a detention living facility. Diagnostic Results: VPA 06/22/16- 60.4 Medication Change: No Medical Record Reviewed: Yes Mental Status Examination - Cognitive Function Orientation: Person Memory: Impaired Attention: Poor Concentration: Poor Association: Loose Fund of Knowledge: Poor (Poor due to dementia) Decription of patient's judgement and insights: Poor insight, limited judgment due to dementia - Mood Mood: Neutral - Affect Affect: Broad - Speech Speech: Appropriate - Formal Thought Process Formal Thought Process: Loosening of associations Psychotic Thoughts and Behaviors: Denies AH/VH, +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 Plan: -Individual, group and milieu tx -Continue Depakote 500 mg AM/ 750 mg PO @1700 -Continue Zyprexa 12.5 mg PO Daily @1700 -Disposition planning: insurance pending, then will refer to a long-term facility as she is not able to care for herself Estimated Date of D/C: 08/14/16 (Pending insurance for detention placement)
[2016-07-23] MEDS: Divalproex 500 mg DR(BID formulation) PO SCH (09:34)
[2016-07-23] MEDS: Multivitamin With Minerals Tab PO SCH (09:35)
[2016-07-23] MEDS: Divalproex 250 mg DR(BID formulation) PO SCH (17:28)
--- NOTE | 2016-07-24 07:52 | CP.PCM.PN ---
Subjective - Date & Time of Evaluation Date of Evaluation: 07/24/16 Time of Evaluation: 07:50 - Subjective Subjective: 40 year old female was seen resting comfortably at bedside. No acute events overnight. Patient in no acute distress. Objective - Vital Signs/Intake and Output Vital Signs (last 24 hours): Temp Pulse Resp BP Pulse Ox 97.7 F 82 18 124/80 18 L 07/24/16 05:25 07/24/16 05:25 07/24/16 05:25 07/24/16 05:25 07/18/16 05:46 - Medications Medications: Current Medications Acetaminophen (Tylenol 325mg Tab) 650 mg PO Q4 PRN PRN Reason: Pain, moderate (4-7) Al Hydrox/Mg Hydrox/Simethicone (Maalox Plus 30 Ml) 30 ml PO Q6 PRN PRN Reason: Indigestion / Heartburn Amiodarone HCl (Cordarone) 200 mg PO DAILY [facility] Last Admin: 07/23/16 09:35 Dose: 200 mg Apixaban (Eliquis) 2.5 mg PO DAILY [facility] PRN Reason: Protocol Last Admin: 07/23/16 09:35 Dose: 2.5 mg Diphenhydramine HCl (Benadryl) 50 mg PO Q12 PRN PRN Reason: Agitation Last Admin: 07/08/16 01:05 Dose: 50 mg Diphenhydramine HCl (Benadryl) 50 mg IM Q12 PRN PRN Reason: Agitation Divalproex Sodium (Depakote Dr(*Bid*)) 500 mg PO DAILY [facility] Last Admin: 07/23/16 09:34 Dose: 500 mg Divalproex Sodium (Depakote Dr(*Bid*)) 750 mg PO DAILY@1700 [facility] Last Admin: 07/23/16 17:28 Dose: 750 mg Ferrous Sulfate (Feosol) 325 mg PO DAILY [facility] Last Admin: 07/23/16 09:34 Dose: 325 mg Haloperidol (Haldol) 5 mg PO Q12 PRN PRN Reason: Agitation Last Admin: 07/03/16 23:28 Dose: 5 mg Haloperidol Lactate (Haldol) 5 mg IM Q12 PRN PRN Reason: Agitation Last Admin: 06/22/16 17:12 Dose: 5 mg Lorazepam (Ativan) 1 mg PO Q8 PRN PRN Reason: Anxiety Last Admin: 07/21/16 03:29 Dose: 1 mg Magnesium Hydroxide (Milk Of Magnesia) 30 ml PO HS PRN PRN Reason: Constipation Multivitamins/Minerals (Therapeutic-M Tab) 1 tab PO DAILY [facility] Last Admin: 07/23/16 09:35 Dose: 1 tab Olanzapine (Zyprexa) 10 mg PO DAILY@1700 [facility] Last Admin: 07/23/16 17:28 Dose: 10 mg Olanzapine (Zyprexa) 2.5 mg PO DAILY@1700 [facility] Last Admin: 07/23/16 17:28 Dose: 2.5 mg - Labs Labs: 07/21/16 06:40 07/21/16 06:40 - Constitutional Appears: No Acute Distress - Head Exam Head Exam: ATRAUMATIC - Eye Exam Eye Exam: EOMI, PERRL - Respiratory Exam Respiratory Exam: Clear to Ausculation Bilateral, NORMAL BREATHING PATTERN. absent: Rales, Rhonchi, Wheezes - Cardiovascular Exam Cardiovascular Exam: REGULAR RHYTHM, +S1, +S2 - GI/Abdominal Exam GI & Abdominal Exam: Soft, Normal Bowel Sounds. absent: Tenderness - Extremities Exam Extremities Exam: Normal Capillary Refill. absent: Joint Swelling, Tenderness - Skin Skin Exam: Dry, Normal Color, Warm Assessment and Plan - Assessment and Plan (Free Text) Assessment: 40 year old female with anoxic encephalopathy s/p cardiac arrest with notable behavior disturbances. Awaiting transfer to industrial painter care facility, pending insurance approval. 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 -S/P V-fib secondary to cardiomyopathy; Echo EF:~15-20% -Continue with present management. -Eliquis 2.5mg daily (CBC within normal limits on 07/21/16) -Amiodarone 200mg PO daily (last TSH 1.02 on 06/17/16 = within normal limits ) -Heart Healthy Diet -Pending insurance approval for placement into [facility], patient has temporary guardian. 2) DVT prophylaxis -patient is on Eliquis as above (2.5mg daily) -patient ambulates
--- NOTE | 2016-07-24 08:10 | PCM.PYCHPN ---
Psychiatric Progress Note - Psychiatric Progress Note Patient seen today, length of contact: Patient evaluated, case discussed with team, chart reviewed Patient Chief Complaint: "I'm good." Problems Identified/Issues Discussed: She has been eating and sleeping well. No significant events, episodes of aggression or agitation. Patient is not currently expressing paranoid ideation. No adverse effects to medications noted. She is not oriented to location, time or situation as per her demented baseline. No acute medical complaints or pain. NO AH/VH/SI/HI. Insurance still pending for her to be transferred to a nursing home living facility. Diagnostic Results: VPA 06/22/16- 60.4 Medication Change: No Medical Record Reviewed: Yes Mental Status Examination - Cognitive Function Orientation: Person Memory: Impaired Attention: Poor Concentration: Poor Association: Loose Fund of Knowledge: Poor (Poor due to dementia) Decription of patient's judgement and insights: Poor I/ Judgment limited by dementia - Mood Mood: Neutral - Affect Affect: Broad - Speech Speech: Appropriate - Formal Thought Process Formal Thought Process: Loosening of associations Psychotic Thoughts and Behaviors: NO AH/VH. +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 Plan: -Individual, group and milieu tx -Continue Depakote 500 mg AM/ 750 mg PO @1700 -Continue Zyprexa 12.5 mg PO Daily @1700 -Disposition planning: insurance pending, then will refer to a long-term facility as she is not able to care for herself Estimated Date of D/C: 08/14/16 (Pending insurance for terminal operator placement)
[2016-07-24] MEDS: Divalproex 500 mg DR(BID formulation) PO SCH (10:19)
[2016-07-24] MEDS: Multivitamin With Minerals Tab PO SCH (10:20)
[2016-07-24] MEDS: Divalproex 250 mg DR(BID formulation) PO SCH (16:32)
--- NOTE | 2016-07-25 09:40 | PCM.PYCHPN ---
Psychiatric Progress Note - Psychiatric Progress Note Patient seen today, length of contact: pt seen and evaluated Patient Chief Complaint: pt has remained intermittently paranoid and irritible and still with poor cognition and poor insight Problems Identified/Issues Discussed: admitted for disorganized thinking and disruptive behaviors due to dementia with psychosis DSM 5 Symptoms Update: vascular dementia with behavior disturbances Medication Change: No Medical Record Reviewed: Yes Mental Status Examination - Cognitive Function Orientation: Person Memory: Impaired Attention: Poor Concentration: Poor Association: Loose Fund of Knowledge: Poor (Poor due to dementia) - Mood Mood: Neutral - Affect Affect: Broad - Speech Speech: Appropriate - Formal Thought Process Formal Thought Process: Loosening of associations - Suicidal Ideation Suicidal Ideation: No - Homicidal Ideation Homicidal Ideation: No Goal/Treatment Plan - Goal/Treatment Plan Need for Continued Stay: Remain at risks for inpatient hospitalization, Severe functional impairment Progress Toward Problem(s) and Goals/Treatment Plan: will continue to titrate meds as regimen and engage pt in behavior plan on unit. pt is waiting for placement. Estimated Date of D/C: 08/14/16 (Pending insurance for jail placement)
[2016-07-25] MEDS: Multivitamin With Minerals Tab PO SCH (10:35)
[2016-07-25] MEDS: Divalproex 500 mg DR(BID formulation) PO SCH (10:36)
[2016-07-25] MEDS: Divalproex 250 mg DR(BID formulation) PO SCH (16:16)
--- NOTE | 2016-07-26 12:40 | PCM.PYCHPN ---
Psychiatric Progress Note - Psychiatric Progress Note Patient seen today, length of contact: pt seen and evaluated Patient Chief Complaint: pt has remained intermittently paranoid and irritible and still with poor cognition and poor insight Problems Identified/Issues Discussed: admitted for disorganized thinking and disruptive behaviors due to dementia with psychosis Medication Change: No Medical Record Reviewed: Yes Mental Status Examination - Cognitive Function Orientation: Person Memory: Impaired Attention: Poor Concentration: Poor Association: Loose Fund of Knowledge: Poor (Poor due to dementia) - Mood Mood: Neutral - Affect Affect: Broad - Speech Speech: Appropriate - Formal Thought Process Formal Thought Process: Loosening of associations - Suicidal Ideation Suicidal Ideation: No - Homicidal Ideation Homicidal Ideation: No Goal/Treatment Plan - Goal/Treatment Plan Need for Continued Stay: Remain at risks for inpatient hospitalization, Severe functional impairment Progress Toward Problem(s) and Goals/Treatment Plan: will continue to titrate meds as regimen and engage pt in behavior plan on unit. pt is waiting for placement. Estimated Date of D/C: 08/14/16 (Pending insurance for intermediate accountant placement)
[2016-07-26] MEDS: Multivitamin With Minerals Tab PO SCH (13:35)
[2016-07-26] MEDS: Divalproex 500 mg DR(BID formulation) PO SCH (13:36)
[2016-07-26] MEDS: Divalproex 250 mg DR(BID formulation) PO SCH (20:21)
--- NOTE | 2016-07-27 08:29 | PCM.PYCHPN ---
Psychiatric Progress Note - Psychiatric Progress Note Patient seen today, length of contact: Patient evaluated, chart reviewed, case discussed with team Patient Chief Complaint: "I'm good." Problems Identified/Issues Discussed: Patient had periods of mood lability over the weekend and at one point thought she was leaving the hospital and needed redirection. She was not violent or threatening towards staff. She has been eating well. Patient is not currently expressing paranoid ideation. No adverse effects to medications noted. She is not oriented to location, time or situation as per her demented baseline. No acute medical complaints or pain. NO AH/VH/SI/HI. Insurance still pending for her to be transferred to a buttermaker helper living facility. Diagnostic Results: VPA 06/22/16- 60.4 Medication Change: No Medical Record Reviewed: Yes Mental Status Examination - Cognitive Function Orientation: Person Memory: Impaired Attention: Poor Concentration: Poor Association: Loose Fund of Knowledge: Poor (Poor due to dementia) Decription of patient's judgement and insights: Poor Insight and judgment limited by dementia - Mood Mood: Neutral - Affect Affect: Broad - Speech Speech: Appropriate - Formal Thought Process Formal Thought Process: Loosening of associations Psychotic Thoughts and Behaviors: No AH/VH/paranoia - Suicidal Ideation Suicidal Ideation: No - Homicidal Ideation Homicidal Ideation: No Goal/Treatment Plan - Goal/Treatment Plan Need for Continued Stay: Remain at risks for inpatient hospitalization, Severe functional impairment Progress Toward Problem(s) and Goals/Treatment Plan: Impression: 40 yo female with dementia with behavioral disturbances, due to h/o cardiac arrest and complications related to anoxia. Plan: -Individual, group and milieu tx -Continue Depakote 500 mg AM/ 750 mg PO @1700 -Continue Zyprexa 12.5 mg PO Daily @1700 -Disposition planning: insurance pending, then will refer to a long-term facility as she is not able to care for herself Estimated Date of D/C: 08/14/16 (Pending insurance for correction placement)
[2016-07-27] MEDS: Multivitamin With Minerals Tab PO SCH (10:54)
[2016-07-27] MEDS: Divalproex 500 mg DR(BID formulation) PO SCH (10:55)
--- NOTE | 2016-07-27 14:19 | CP.PCM.PN ---
Subjective - Date & Time of Evaluation Date of Evaluation: 07/27/16 Time of Evaluation: 14:17 - Subjective Subjective: 40 year old female was seen resting comfortably at bedside. Patient in no acute distress. Patient states that she is on her period and therefore has a slight decrease in appetite. She denies n/v/f/c/sob/cp. Objective - Vital Signs/Intake and Output Vital Signs (last 24 hours): Temp Pulse Resp BP Pulse Ox 98 F 67 18 107/62 18 L 07/27/16 06:00 07/27/16 10:54 07/27/16 06:00 07/27/16 10:54 07/18/16 05:46 - Medications Medications: Current Medications Acetaminophen (Tylenol 325mg Tab) 650 mg PO Q4 PRN PRN Reason: Pain, moderate (4-7) Al Hydrox/Mg Hydrox/Simethicone (Maalox Plus 30 Ml) 30 ml PO Q6 PRN PRN Reason: Indigestion / Heartburn Amiodarone HCl (Cordarone) 200 mg PO DAILY [facility] Last Admin: 07/27/16 10:54 Dose: 200 mg Apixaban (Eliquis) 2.5 mg PO DAILY [facility] PRN Reason: Protocol Last Admin: 07/27/16 10:54 Dose: 2.5 mg Diphenhydramine HCl (Benadryl) 50 mg PO Q12 PRN PRN Reason: Agitation Last Admin: 07/25/16 22:28 Dose: 50 mg Diphenhydramine HCl (Benadryl) 50 mg IM Q12 PRN PRN Reason: Agitation Divalproex Sodium (Depakote Dr(*Bid*)) 500 mg PO DAILY [facility] Last Admin: 07/27/16 10:55 Dose: 500 mg Divalproex Sodium (Depakote Dr(*Bid*)) 750 mg PO DAILY@1700 [facility] Last Admin: 07/26/16 20:21 Dose: 750 mg Ferrous Sulfate (Feosol) 325 mg PO DAILY [facility] Last Admin: 07/27/16 10:55 Dose: 325 mg Haloperidol (Haldol) 5 mg PO Q12 PRN PRN Reason: Agitation Last Admin: 07/03/16 23:28 Dose: 5 mg Haloperidol Lactate (Haldol) 5 mg IM Q12 PRN PRN Reason: Agitation Last Admin: 06/22/16 17:12 Dose: 5 mg Lorazepam (Ativan) 1 mg PO Q8 PRN PRN Reason: Anxiety Magnesium Hydroxide (Milk Of Magnesia) 30 ml PO HS PRN PRN Reason: Constipation Multivitamins/Minerals (Therapeutic-M Tab) 1 tab PO DAILY [facility] Last Admin: 07/27/16 10:54 Dose: 1 tab Olanzapine (Zyprexa) 10 mg PO DAILY@1700 [facility] Last Admin: 07/26/16 17:16 Dose: 10 mg Olanzapine (Zyprexa) 2.5 mg PO DAILY@1700 [facility] Last Admin: 07/26/16 17:16 Dose: 2.5 mg - Labs Labs: 07/21/16 06:40 07/21/16 06:40 - Constitutional Appears: Non-toxic, No Acute Distress - Head Exam Head Exam: ATRAUMATIC - Eye Exam Eye Exam: EOMI, PERRL - Respiratory Exam Respiratory Exam: NORMAL BREATHING PATTERN. absent: Rhonchi, Wheezes - Cardiovascular Exam Cardiovascular Exam: REGULAR RHYTHM, +S1, +S2 - GI/Abdominal Exam GI & Abdominal Exam: Soft, Normal Bowel Sounds. absent: Tenderness - Extremities Exam Extremities Exam: Normal Inspection. absent: Tenderness - Back Exam Back Exam: NORMAL INSPECTION - Neurological Exam Neurological Exam: Alert, Awake, Oriented x3 - Psychiatric Exam Psychiatric exam: Normal Affect, Normal Mood - Skin Skin Exam: Dry, Normal Color, Warm Assessment and Plan - Assessment and Plan (Free Text) Assessment: 40 year old female with anoxic encephalopathy s/p cardiac arrest with notable behavior disturbances. [facility], pending insurance approval. 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 -S/P V-fib secondary to cardiomyopathy; Echo EF:~15-20% -Continue with present management. -Eliquis 2.5mg daily (CBC within normal limits on 07/21/16) -Amiodarone 200mg PO daily (last TSH 1.02 on 06/17/16 = within normal limits ) -Heart Healthy Diet -Pending insurance approval for placement into [facility](Estimated discharge 08/14/16), patient has temporary guardian. 2) DVT prophylaxis -patient is on Eliquis as above (2.5mg daily) -patient ambulates
[2016-07-27] MEDS: Divalproex 250 mg DR(BID formulation) PO SCH (17:20)
--- NOTE | 2016-07-28 05:12 | PCM.PYCHPN ---
Psychiatric Progress Note - Psychiatric Progress Note Patient seen today, length of contact: Patient evaluated, chart reviewed, case discussed with team Patient Chief Complaint: "I'm good." Problems Identified/Issues Discussed: No significant events over night or periods of agitation/aggression. She has been eating well. Patient is not currently expressing paranoid ideation. No adverse effects to medications noted. She is not oriented to location, time or situation as per her demented baseline. No acute medical complaints or pain. NO AH/VH/SI/HI. Insurance still pending for her to be transferred to a alf living facility. Diagnostic Results: VPA 06/22/16- 60.4 Medication Change: No Medical Record Reviewed: Yes Mental Status Examination - Cognitive Function Orientation: Person Memory: Impaired Attention: Poor Concentration: Poor Association: Loose Fund of Knowledge: Poor (Poor due to dementia) Decription of patient's judgement and insights: I/J limited by dementia - Mood Mood: Neutral - Affect Affect: Broad - Speech Speech: Appropriate - Formal Thought Process Formal Thought Process: Loosening of associations Psychotic Thoughts and Behaviors: Denies AH/VH/paranoia. +delusional attachment to her john doll. - Suicidal Ideation Suicidal Ideation: No - Homicidal Ideation Homicidal Ideation: No Goal/Treatment Plan - Goal/Treatment Plan Need for Continued Stay: Remain at risks for inpatient hospitalization, Severe functional impairment Progress Toward Problem(s) and Goals/Treatment Plan: Impression: 40 yo female with dementia with behavioral disturbances, due to h/o cardiac arrest and complications related to anoxia. Plan: -Individual, group and milieu tx -Continue Depakote 500 mg AM/ 750 mg PO @1700 -Continue Zyprexa 12.5 mg PO Daily @1700 -Disposition planning: insurance pending, then will refer to a long-term facility as she is not able to care for herself Estimated Date of D/C: 08/14/16 (Pending insurance for alf placement)
[2016-07-28] MEDS: Divalproex 500 mg DR(BID formulation) PO SCH (08:59)
[2016-07-28] MEDS: Multivitamin With Minerals Tab PO SCH (09:00)
[2016-07-28] MEDS: Divalproex 250 mg DR(BID formulation) PO SCH (21:49)
--- NOTE | 2016-07-29 08:13 | PCM.PYCHPN ---
Psychiatric Progress Note - Psychiatric Progress Note Patient seen today, length of contact: Patient evaluated, chart reviewed, case discussed with team Patient Chief Complaint: "I'm good." Problems Identified/Issues Discussed: Patient slept well overnight. No significant events or periods of agitation/ aggression. She has been eating well. No adverse effects to medications noted. She is not oriented to location, time or situation as per her demented baseline. No acute medical complaints or pain. NO AH/VH/SI/HI. Insurance still pending for her to be transferred to a alf living facility. Diagnostic Results: VPA 06/22/16- 60.4 Medication Change: No Medical Record Reviewed: Yes Mental Status Examination - Cognitive Function Orientation: Person Memory: Impaired Attention: Poor Concentration: Poor Association: Loose Fund of Knowledge: Poor (Poor due to dementia) Decription of patient's judgement and insights: Poor insight, judgment limited by dementia - Mood Mood: Neutral - Affect Affect: Broad - Speech Speech: Appropriate - Formal Thought Process Formal Thought Process: Loosening of associations Psychotic Thoughts and Behaviors: NO AH/VH/paranoia. +Delusional attachment to Joseph doll - Suicidal Ideation Suicidal Ideation: No - Homicidal Ideation Homicidal Ideation: No Goal/Treatment Plan - Goal/Treatment Plan Need for Continued Stay: Remain at risks for inpatient hospitalization, Severe functional impairment Progress Toward Problem(s) and Goals/Treatment Plan: Impression: 40 yo female with dementia with behavioral disturbances, due to h/o cardiac arrest and complications related to anoxia. 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
[2016-07-29] MEDS: Divalproex 500 mg DR(BID formulation) PO SCH (08:40)
[2016-07-29] MEDS: Multivitamin With Minerals Tab PO SCH (08:41)
[2016-07-29] MEDS: Divalproex 250 mg DR(BID formulation) PO SCH (16:38)
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
[2016-07-30] MEDS: Divalproex 500 mg DR(BID formulation) PO SCH (13:42)
[2016-07-30] MEDS: Multivitamin With Minerals Tab PO SCH (13:43)
--- NOTE | 2016-07-30 14:37 | CP.PCM.PN ---
Subjective - Date & Time of Evaluation Date of Evaluation: 07/30/16 Time of Evaluation: 14:33 - Subjective Subjective: 40 year old female was seen resting comfortably at bedside. Patient in no acute distress. Patient states that she feels good today. She states that she is tired so she is trying to take a nap. She denies n/v/f/c/sob/cp. Objective - Vital Signs/Intake and Output Vital Signs (last 24 hours): Temp Pulse Resp BP Pulse Ox 97 F L 62 18 98/45 L 18 L 07/29/16 15:44 07/29/16 15:44 07/29/16 15:44 07/29/16 15:44 07/18/16 05:46 - Medications Medications: Current Medications Acetaminophen (Tylenol 325mg Tab) 650 mg PO Q4 PRN PRN Reason: Pain, moderate (4-7) Al Hydrox/Mg Hydrox/Simethicone (Maalox Plus 30 Ml) 30 ml PO Q6 PRN PRN Reason: Indigestion / Heartburn Amiodarone HCl (Cordarone) [address] [facility] Last Admin: 07/29/16 08:40 Dose: 200 mg Apixaban (Eliquis) 2.[address] [facility] PRN Reason: Protocol Last Admin: 07/30/16 13:43 Dose: 2.5 mg Diphenhydramine HCl (Benadryl) 50 mg PO Q12 PRN PRN Reason: Agitation Last Admin: 07/25/16 22:28 Dose: 50 mg Diphenhydramine HCl (Benadryl) 50 mg IM Q12 PRN PRN Reason: Agitation Divalproex Sodium (Depakote Dr(*Bid*)) [address] [facility] Last Admin: 07/30/16 13:42 Dose: 500 mg Divalproex Sodium (Depakote Dr(*Bid*)) 750 mg PO DAILY@1700 [facility] Last Admin: 07/29/16 16:38 Dose: 750 mg Ferrous Sulfate (Feosol) [address] [facility] Last Admin: 07/30/16 13:42 Dose: 325 mg Haloperidol (Haldol) 5 mg PO Q12 PRN PRN Reason: Agitation Last Admin: 07/03/16 23:28 Dose: 5 mg Haloperidol Lactate (Haldol) 5 mg IM Q12 PRN PRN Reason: Agitation Last Admin: 06/22/16 17:12 Dose: 5 mg Magnesium Hydroxide (Milk Of Magnesia) 30 ml PO HS PRN PRN Reason: Constipation Multivitamins/Minerals (Therapeutic-M Tab) [address] [facility] Last Admin: 07/30/16 13:43 Dose: 1 tab Olanzapine (Zyprexa) 10 mg PO DAILY@1700 [facility] Last Admin: 07/29/16 16:38 Dose: 10 mg Olanzapine (Zyprexa) 2.5 mg PO DAILY@1700 [facility] Last Admin: 07/29/16 16:38 Dose: 2.5 mg - Labs Labs: 07/21/16 06:40 07/21/16 06:40 - Constitutional Appears: Non-toxic, No Acute Distress - Head Exam Head Exam: ATRAUMATIC - Eye Exam Eye Exam: Normal appearance - Neck Exam Neck Exam: Full ROM - Respiratory Exam Respiratory Exam: NORMAL BREATHING PATTERN. absent: Rales, Rhonchi, Wheezes - Cardiovascular Exam Cardiovascular Exam: REGULAR RHYTHM, +S1, +S2 - GI/Abdominal Exam GI & Abdominal Exam: Soft, Normal Bowel Sounds. absent: Tenderness - Extremities Exam Extremities Exam: Normal Inspection. absent: Joint Swelling, Pedal Edema, Tenderness - Back Exam Back Exam: NORMAL INSPECTION - Neurological Exam Neurological Exam: Alert, Awake, Oriented x3 - Psychiatric Exam Psychiatric exam: Normal Affect, Normal Mood - Skin Skin Exam: Dry, Normal Color, Warm Assessment and Plan - Assessment and Plan (Free Text) Assessment: 40 year old female with anoxic encephalopathy s/p cardiac arrest with notable behavior disturbances. [facility], pending insurance approval. 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 -S/P V-fib secondary to cardiomyopathy; Echo EF:~15-20% -Continue with present management. -Eliquis 2.5mg daily (CBC within normal limits on 07/21/16) -Amiodarone 200mg PO daily (last TSH 1.02 on 06/17/16 = within normal limits ) -Heart Healthy Diet -Pending insurance approval for placement into shelter care(Estimated discharge 08/14/16), patient has temporary guardian. 2) DVT prophylaxis -patient is on Eliquis as above (2.5mg daily) -patient ambulates
[2016-07-30] MEDS: Divalproex 250 mg DR(BID formulation) PO SCH (18:35)
--- NOTE | 2016-07-31 08:09 | PCM.PYCHPN ---
Psychiatric Progress Note - Psychiatric Progress Note Patient seen today, length of contact: Patient evaluated, chart reviewed, case discussed with team Patient Chief Complaint: "I'm good." Problems Identified/Issues Discussed: No significant events overnight. She has been eating well. No adverse effects to medications noted. She is not oriented to location, time or situation as per her demented baseline. No acute medical complaints or pain. NO AH/VH/SI/ HI. Insurance still pending for her to be transferred to a senior living living facility. Diagnostic Results: VPA 06/22/16- 60.4 Medication Change: No Medical Record Reviewed: Yes Mental Status Examination - Cognitive Function Orientation: Person Memory: Impaired Attention: Poor Concentration: Poor Association: Loose Fund of Knowledge: Poor (Poor due to dementia) Decription of patient's judgement and insights: Poor insight, judgment limited by dementia - Mood Mood: Neutral - Affect Affect: Broad - Speech Speech: Appropriate - Formal Thought Process Formal Thought Process: Loosening of associations Psychotic Thoughts and Behaviors: Denies AH/VH. +Delusional attachment to her Joseph doll. - Suicidal Ideation Suicidal Ideation: No - Homicidal Ideation Homicidal Ideation: No Goal/Treatment Plan - Goal/Treatment Plan Need for Continued Stay: Remain at risks for inpatient hospitalization, Severe functional impairment Progress Toward Problem(s) and Goals/Treatment Plan: Impression: 40 yo female with dementia with behavioral disturbances, due to h/o cardiac arrest and complications related to anoxia. Plan: -Individual, group and milieu tx -Continue Depakote 500 mg AM/ 750 mg PO @1700 -Continue Zyprexa 12.5 mg PO Daily @1700 -Disposition planning: insurance pending, then will refer to a long-term facility as she is not able to care for herself Estimated Date of D/C: 08/14/16 (Pending insurance for senior living placement)
[2016-07-31] MEDS: Multivitamin With Minerals Tab PO SCH (08:53)
[2016-07-31] MEDS: Divalproex 500 mg DR(BID formulation) PO SCH (08:53)
[2016-07-31] MEDS: Divalproex 250 mg DR(BID formulation) PO SCH (17:25)
[2016-08-01] MEDS: Multivitamin With Minerals Tab PO SCH (09:36)
[2016-08-01] MEDS: Divalproex 500 mg DR(BID formulation) PO SCH (09:37)
--- NOTE | 2016-08-01 12:37 | PCM.PYCHPN ---
Psychiatric Progress Note - Psychiatric Progress Note Patient seen today, length of contact: discussed with team Patient Chief Complaint: no complaints Problems Identified/Issues Discussed: pt continues to have some confusion. she is able to be easily verbally redirected by staff. no c/o medication side effects. Medication Change: No Medical Record Reviewed: Yes Mental Status Examination - Cognitive Function Orientation: Person Memory: Impaired Attention: Poor Concentration: Poor Association: Loose Fund of Knowledge: Poor (Poor due to dementia) Decription of patient's judgement and insights: poor - Mood Mood: Neutral - Affect Affect: Broad - Speech Speech: Appropriate - Formal Thought Process Formal Thought Process: Loosening of associations - Suicidal Ideation Suicidal Ideation: No - Homicidal Ideation Homicidal Ideation: No Goal/Treatment Plan - Goal/Treatment Plan Need for Continued Stay: Remain at risks for inpatient hospitalization, Severe functional impairment Progress Toward Problem(s) and Goals/Treatment Plan: vascular dementia with with behavioral disturbance continue current treatment per primary team Estimated Date of D/C: 08/14/16 (Pending insurance for longterm placement)
[2016-08-01] MEDS: Divalproex 250 mg DR(BID formulation) PO SCH (16:17)
[2016-08-02] MEDS: Multivitamin With Minerals Tab PO SCH (08:05)
[2016-08-02] MEDS: Divalproex 500 mg DR(BID formulation) PO SCH (08:06)
--- NOTE | 2016-08-02 12:28 | PCM.PYCHPN ---
Psychiatric Progress Note - Psychiatric Progress Note Patient seen today, length of contact: discussed with team Patient Chief Complaint: no complaints Problems Identified/Issues Discussed: pt continues be confused. she is still able to be easily verbally redirected by staff. no c/o medication side effects. Medication Change: No Medical Record Reviewed: Yes Mental Status Examination - Cognitive Function Orientation: Person Memory: Impaired Attention: Poor Concentration: Poor Association: Loose Fund of Knowledge: Poor (Poor due to dementia) Decription of patient's judgement and insights: poor - Mood Mood: Neutral - Affect Affect: Broad - Speech Speech: Appropriate - Formal Thought Process Formal Thought Process: Loosening of associations - Suicidal Ideation Suicidal Ideation: No - Homicidal Ideation Homicidal Ideation: No Goal/Treatment Plan - Goal/Treatment Plan Need for Continued Stay: Remain at risks for inpatient hospitalization, Severe functional impairment Progress Toward Problem(s) and Goals/Treatment Plan: vascular dementia with with behavioral disturbance continue current treatment per primary team Estimated Date of D/C: 08/14/16 (Pending insurance for [facility] placement)
[2016-08-02] MEDS: Divalproex 250 mg DR(BID formulation) PO SCH (16:41)
[2016-08-03] MEDS: Multivitamin With Minerals Tab PO SCH (08:01)
[2016-08-03] MEDS: Divalproex 500 mg DR(BID formulation) PO SCH (08:04)
--- NOTE | 2016-08-03 09:38 | PCM.PYCHPN ---
Psychiatric Progress Note - Psychiatric Progress Note Patient seen today, length of contact: Patient evaluated, case discussed with team, chart reviewed Patient Chief Complaint: "I'm good." Problems Identified/Issues Discussed: No significant events over the weekend. No periods of agitation. She has been eating well. No adverse effects to medications noted. She is not oriented to location, time or situation as per her demented baseline. No acute medical complaints or pain. NO AH/VH/SI/HI. Insurance still pending for her to be transferred to a [facility] living facility. Diagnostic Results: VPA 06/22/16- 60.4 Medication Change: No Medical Record Reviewed: Yes Mental Status Examination - Cognitive Function Orientation: Person Memory: Impaired Attention: Poor Concentration: Poor Association: Loose Fund of Knowledge: Poor (Poor due to dementia) Decription of patient's judgement and insights: Poor insight, judgment limited by dementia, but patient has been in good behavioral control - Mood Mood: Neutral - Affect Affect: Broad - Speech Speech: Appropriate - Formal Thought Process Formal Thought Process: Loosening of associations Psychotic Thoughts and Behaviors: +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 Plan: -Individual, group and milieu tx -Continue Depakote 500 mg AM/ 750 mg PO @1700 -Continue Zyprexa 12.5 mg PO Daily @1700 -Disposition planning: insurance pending, then will refer to a long-term facility as she is not able to care for herself Estimated Date of D/C: 08/14/16 (Pending insurance for residential placement)
--- NOTE | 2016-08-03 12:57 | CP.PCM.PN ---
Subjective - Date & Time of Evaluation Date of Evaluation: 08/03/16 Time of Evaluation: 12:55 - Subjective Subjective: 40 year old female was seen resting comfortably at bedside. Patient in no acute distress. Tolerating PO diet, having normal urine and stool output. Denies chest pain, SOB, nausea, vomiting or weakness. Objective - Vital Signs/Intake and Output Vital Signs (last 24 hours): Temp Pulse Resp BP Pulse Ox 97.2 F L 62 18 118/63 18 L 08/03/16 06:00 08/03/16 08:01 08/03/16 06:00 08/03/16 08:01 07/18/16 05:46 - Medications Medications: Current Medications Acetaminophen (Tylenol 325mg Tab) 650 mg PO Q4 PRN PRN Reason: Pain, moderate (4-7) Al Hydrox/Mg Hydrox/Simethicone (Maalox Plus 30 Ml) 30 ml PO Q6 PRN PRN Reason: Indigestion / Heartburn Amiodarone HCl (Cordarone) 200 mg PO DAILY [facility] Last Admin: 08/03/16 08:01 Dose: 200 mg Apixaban (Eliquis) 2.5 mg PO DAILY [facility] PRN Reason: Protocol Last Admin: 08/03/16 08:02 Dose: 2.5 mg Diphenhydramine HCl (Benadryl) 50 mg PO Q12 PRN PRN Reason: Agitation Last Admin: 07/25/16 22:28 Dose: 50 mg Diphenhydramine HCl (Benadryl) 50 mg IM Q12 PRN PRN Reason: Agitation Divalproex Sodium (Depakote Dr(*Bid*)) 500 mg PO DAILY [facility] Last Admin: 08/03/16 08:04 Dose: 500 mg Divalproex Sodium (Depakote Dr(*Bid*)) 750 mg PO DAILY@1700 [facility] Last Admin: 08/02/16 16:41 Dose: 750 mg Ferrous Sulfate (Feosol) 325 mg PO DAILY [facility] Last Admin: 08/03/16 08:02 Dose: 325 mg Haloperidol (Haldol) 5 mg PO Q12 PRN PRN Reason: Agitation Last Admin: 07/03/16 23:28 Dose: 5 mg Haloperidol Lactate (Haldol) 5 mg IM Q12 PRN PRN Reason: Agitation Last Admin: 06/22/16 17:12 Dose: 5 mg Magnesium Hydroxide (Milk Of Magnesia) 30 ml PO HS PRN PRN Reason: Constipation Multivitamins/Minerals (Therapeutic-M Tab) 1 tab PO DAILY [facility] Last Admin: 08/03/16 08:01 Dose: 1 tab Olanzapine (Zyprexa) 10 mg PO DAILY@1700 [facility] Last Admin: 08/02/16 16:41 Dose: 10 mg Olanzapine (Zyprexa) 2.5 mg PO DAILY@1700 [facility] Last Admin: 08/02/16 16:41 Dose: 2.5 mg - Labs Labs: 07/21/16 06:40 07/21/16 06:40 - Constitutional Appears: Non-toxic, No Acute Distress - Head Exam Head Exam: NORMAL INSPECTION - Eye Exam Eye Exam: Normal appearance - ENT Exam ENT Exam: Mucous Membranes Moist - Respiratory Exam Respiratory Exam: NORMAL BREATHING PATTERN. absent: Rhonchi, Wheezes - Cardiovascular Exam Cardiovascular Exam: REGULAR RHYTHM, +S1, +S2 - GI/Abdominal Exam GI & Abdominal Exam: Soft, Normal Bowel Sounds. absent: Tenderness - Extremities Exam Extremities Exam: Full ROM, Normal Inspection. absent: Pedal Edema, Tenderness - Back Exam Back Exam: NORMAL INSPECTION - Neurological Exam Neurological Exam: Alert, Awake, Normal Gait - Psychiatric Exam Psychiatric exam: Normal Affect, Normal Mood - Skin Skin Exam: Dry, Normal Color, Warm Assessment and Plan - Assessment and Plan (Free Text) Assessment: 40 year old female with anoxic encephalopathy s/p cardiac arrest with notable behavior disturbances. Awaiting transfer to long-term care facility, pending insurance approval. 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 -S/P V-fib secondary to cardiomyopathy; Echo EF:~15-20% -Continue with present management. -Eliquis 2.5mg daily (CBC within normal limits on 07/21/16) -Amiodarone 200mg PO daily (last TSH 1.02 on 06/17/16 = within normal limits ) -Heart Healthy Diet -Pending insurance approval for placement into long-term care(Estimated discharge 08/14/16), patient has temporary guardian. 2) DVT prophylaxis -Patient is on Eliquis as above (2.5mg daily) -Patient ambulates
[2016-08-03] MEDS: Divalproex 250 mg DR(BID formulation) PO SCH (17:45)
[2016-08-04] MEDS: Multivitamin With Minerals Tab PO SCH (08:28)
[2016-08-04] MEDS: Divalproex 500 mg DR(BID formulation) PO SCH (08:28)
--- NOTE | 2016-08-04 08:57 | PCM.PYCHPN ---
Psychiatric Progress Note - Psychiatric Progress Note Patient seen today, length of contact: Patient evaluated, case discussed with team, chart reviewed Patient Chief Complaint: "I'm good." Problems Identified/Issues Discussed: No significant events overnight. No periods of agitation. She has been eating well. No adverse effects to medications noted. She is not oriented to location , time or situation as per her demented baseline. No acute medical complaints or pain. NO AH/VH/SI/HI. Insurance still pending for her to be transferred to a [facility] living facility. 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 Plan: -Individual, group and milieu tx -Continue Depakote 500 mg AM/ 750 mg PO @1700 -Continue Zyprexa 12.5 mg PO Daily @1700 -Disposition planning: insurance pending, then will refer to a long-term facility as she is not able to care for herself Estimated Date of D/C: 08/14/16 (Pending insurance for shelter placement)
[2016-08-04] MEDS: Divalproex 250 mg DR(BID formulation) PO SCH (18:50)
[2016-08-05] MEDS: Divalproex 500 mg DR(BID formulation) PO SCH (08:12)
[2016-08-05] MEDS: Multivitamin With Minerals Tab PO SCH (08:13)
--- NOTE | 2016-08-05 09:39 | PCM.PYCHPN ---
Psychiatric Progress Note - Psychiatric Progress Note Patient seen today, length of contact: Patient evaluated, case discussed with team, chart reviewed Patient Chief Complaint: "I'm good." Problems Identified/Issues Discussed: No significant events overnight. No periods of agitation. She has been eating well. No adverse effects to medications noted. She is not oriented to location , time or situation as per her demented baseline. No acute medical complaints or pain. NO AH/VH/SI/HI. Insurance still pending for her to be transferred to a terminal [facility] living facility. Diagnostic Results: VPA 06/22/16- 60.4 VPA 08/05/16- 71.8 Medication Change: No Medical Record Reviewed: Yes Mental Status Examination - Cognitive Function Orientation: Person Memory: Impaired Attention: Poor Concentration: Poor Association: Loose Fund of Knowledge: Poor (Poor due to dementia) Decription of patient's judgement and insights: I/J limited by dementia - Mood Mood: Neutral - Affect Affect: Broad - Speech Speech: Appropriate - Formal Thought Process Formal Thought Process: Loosening of associations Psychotic Thoughts and Behaviors: No AH/VH/paranoia - Suicidal Ideation Suicidal Ideation: No - Homicidal Ideation Homicidal Ideation: No Goal/Treatment Plan - Goal/Treatment Plan Need for Continued Stay: Remain at risks for inpatient hospitalization, Severe functional impairment Progress Toward Problem(s) and Goals/Treatment Plan: Impression: 40 yo female with dementia with behavioral disturbances, due to h/o cardiac arrest and complications related to anoxia. Plan: -Individual, group and milieu tx -Continue Depakote 500 mg AM/ 750 mg PO @1700 -Continue Zyprexa 12.5 mg PO Daily @1700 -Disposition planning: insurance pending, then will refer to a long-term facility as she is not able to care for herself Estimated Date of D/C: 08/14/16 (Pending insurance for [facility] placement)
[2016-08-05] MEDS: Divalproex 250 mg DR(BID formulation) PO SCH (16:59)
[2016-08-06] MEDS: Divalproex 500 mg DR(BID formulation) PO SCH (08:12)
[2016-08-06] MEDS: Multivitamin With Minerals Tab PO SCH (08:12)
--- NOTE | 2016-08-06 08:48 | PCM.PYCHPN ---
Psychiatric Progress Note - Psychiatric Progress Note Patient seen today, length of contact: Patient evaluated, case discussed with team, chart reviewed Patient Chief Complaint: "I'm good." Problems Identified/Issues Discussed: No significant events overnight. No periods of agitation. She has been eating well. No adverse effects to medications noted. She is not oriented to location , time or situation as per her demented baseline. No acute medical complaints or pain. NO AH/VH/SI/HI. Insurance still pending for her to be transferred to a [facility] ex[facility] living facility. Diagnostic Results: VPA 06/22/16- 60.4 VPA 08/05/16- 71.8 Medication Change: Yes (Lower Zyprexa to 10 mg PO HS) Medical Record Reviewed: Yes Mental Status Examination - Cognitive Function Orientation: Person Memory: Impaired Attention: Poor Concentration: Poor Association: Loose Fund of Knowledge: Poor (Poor due to dementia) Decription of patient's judgement and insights: Limited by dementia - Mood Mood: Neutral - Affect Affect: Broad - Speech Speech: Appropriate - Formal Thought Process Formal Thought Process: Loosening of associations Psychotic Thoughts and Behaviors: Delusional attachment to her Joseph doll - Suicidal Ideation Suicidal Ideation: No - Homicidal Ideation Homicidal Ideation: No Goal/Treatment Plan - Goal/Treatment Plan Need for Continued Stay: Severe functional impairment Progress Toward Problem(s) and Goals/Treatment Plan: Impression: 40 yo female with dementia with behavioral disturbances, due to h/o cardiac arrest and complications related to anoxia. Plan: -Individual, group and milieu tx -Continue Depakote 500 mg AM/ 750 mg PO @1700 -Lower Zyprexa to 10 mg PO Daily @1700 -Disposition planning: insurance pending, then will refer to a long-term facility as she is not able to care for herself Estimated Date of D/C: 08/14/16 (Pending insurance for group home placement)
--- NOTE | 2016-08-06 09:07 | CP.PCM.PN ---
Subjective - Date & Time of Evaluation Date of Evaluation: 08/06/16 Time of Evaluation: 09:05 - Subjective Subjective: 40 year old female was seen resting comfortably at bedside. Patient in no acute distress. She is tired and states she is going to go back to sleep.Tolerating PO diet, having normal urine and stool output. Denies n/v/f/c/sob/cp. Per nurse- patient may be transfered to [facility] next [facility]. Objective - Vital Signs/Intake and Output Vital Signs (last 24 hours): Temp Pulse Resp BP Pulse Ox 98.1 F 61 18 104/64 18 L 08/06/16 06:00 08/06/16 08:13 08/06/16 06:00 08/06/16 08:13 07/18/16 05:46 - Medications Medications: Current Medications Acetaminophen (Tylenol 325mg Tab) 650 mg PO Q4 PRN PRN Reason: Pain, moderate (4-7) Al Hydrox/Mg Hydrox/Simethicone (Maalox Plus 30 Ml) 30 ml PO Q6 PRN PRN Reason: Indigestion / Heartburn Amiodarone HCl (Cordarone) 200 mg PO DAILY [facility] Last Admin: 08/06/16 08:13 Dose: Not Given Apixaban (Eliquis) 2.5 mg PO DAILY [facility] PRN Reason: Protocol Last Admin: 08/06/16 08:12 Dose: 2.5 mg Diphenhydramine HCl (Benadryl) 50 mg PO Q12 PRN PRN Reason: Agitation Last Admin: 07/25/16 22:28 Dose: 50 mg Diphenhydramine HCl (Benadryl) 50 mg IM Q12 PRN PRN Reason: Agitation Divalproex Sodium (Depakote Dr(*Bid*)) 500 mg PO DAILY [facility] Last Admin: 08/06/16 08:12 Dose: 500 mg Divalproex Sodium (Depakote Dr(*Bid*)) 750 mg PO DAILY@1700 [facility] Last Admin: 08/05/16 16:59 Dose: 750 mg Ferrous Sulfate (Feosol) 325 mg PO DAILY [facility] Last Admin: 08/06/16 08:12 Dose: 325 mg Haloperidol (Haldol) 5 mg PO Q12 PRN PRN Reason: Agitation Last Admin: 02/17/17 23:28 Dose: 5 mg Haloperidol Lactate (Haldol) 5 mg IM Q12 PRN PRN Reason: Agitation Last Admin: 06/22/16 17:12 Dose: 5 mg Magnesium Hydroxide (Milk Of Magnesia) 30 ml PO HS PRN PRN Reason: Constipation Multivitamins/Minerals (Therapeutic-M Tab) 1 tab PO DAILY [facility] Last Admin: 08/06/16 08:12 Dose: 1 tab Olanzapine (Zyprexa) 10 mg PO DAILY@1700 [facility] Last Admin: 08/05/16 17:00 Dose: 10 mg - Labs Labs: 07/21/16 06:40 07/21/16 06:40 - Constitutional Appears: Non-toxic, No Acute Distress - Head Exam Head Exam: NORMAL INSPECTION - Eye Exam Eye Exam: Normal appearance - ENT Exam ENT Exam: Mucous Membranes Moist - Neck Exam Neck Exam: Full ROM - Respiratory Exam Respiratory Exam: NORMAL BREATHING PATTERN. absent: Rales, Rhonchi, Wheezes - Cardiovascular Exam Cardiovascular Exam: REGULAR RHYTHM, +S1, +S2 - GI/Abdominal Exam GI & Abdominal Exam: Soft, Normal Bowel Sounds. absent: Tenderness - Extremities Exam Extremities Exam: Normal Inspection. absent: Tenderness - Back Exam Back Exam: NORMAL INSPECTION - Neurological Exam Neurological Exam: Awake - Psychiatric Exam Psychiatric exam: Normal Affect, Normal Mood - Skin Skin Exam: Dry, Warm Assessment and Plan - Assessment and Plan (Free Text) Assessment: 40 year old female with anoxic encephalopathy s/p cardiac arrest with notable behavior disturbances. Awaiting transfer to [facility]. 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 -S/P V-fib secondary to cardiomyopathy; Echo EF:~15-20% -Continue with present management. -Eliquis 2.5mg daily (CBC within normal limits on 07/21/16) -Amiodarone 200mg PO daily (last TSH 1.02 on 06/17/16 = within normal limits ) -Heart Healthy Diet -Pending insurance approval for placement into [facility] care(Estimated discharge next week), patient has temporary guardian. 2) DVT prophylaxis -Patient is on Eliquis as above (2.5mg daily) -Patient ambulates
[2016-08-06] MEDS: Divalproex 250 mg DR(BID formulation) PO SCH (16:43)
[2016-08-07] MEDS: Divalproex 500 mg DR(BID formulation) PO SCH (09:42)
[2016-08-07] MEDS: Multivitamin With Minerals Tab PO SCH (09:42)
--- NOTE | 2016-08-07 12:09 | PCM.PYCHPN ---
Psychiatric Progress Note - Psychiatric Progress Note Patient seen today, length of contact: Patient evaluated, case discussed with team, chart reviewed Patient Chief Complaint: "I'm good." Problems Identified/Issues Discussed: No significant events overnight. No periods of agitation. She has been eating well. No adverse effects to medications noted. She is not oriented to location , time or situation as per her demented baseline. No acute medical complaints or pain. NO AH/VH/SI/HI. 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 Diagnostic Results: VPA 06/22/16- 60.4 VPA 08/05/16- 71.8 Medication Change: No Medical Record Reviewed: Yes Mental Status Examination - Cognitive Function Orientation: Person Memory: Impaired Attention: Poor Concentration: Poor Association: Loose Fund of Knowledge: Poor (Poor due to dementia) Decription of patient's judgement and insights: Poor insight, judgment limited by dementia - Mood Mood: Neutral - Affect Affect: Broad - Speech Speech: Appropriate - Formal Thought Process Formal Thought Process: Loosening of associations Psychotic Thoughts and Behaviors: +Delusional attachment to Joseph doll; Denies AH/VH - Suicidal Ideation Suicidal Ideation: No - Homicidal Ideation Homicidal Ideation: No Goal/Treatment Plan - Goal/Treatment Plan Need for Continued Stay: Severe functional impairment Progress Toward Problem(s) and Goals/Treatment Plan: Impression: 40 yo female with dementia with behavioral disturbances, due to h/o cardiac arrest and complications related to anoxia. 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
[2016-08-07] MEDS: Divalproex 250 mg DR(BID formulation) PO SCH (16:21)
[2016-08-08] MEDS: Multivitamin With Minerals Tab PO SCH (08:52)
[2016-08-08] MEDS: Divalproex 500 mg DR(BID formulation) PO SCH (08:52)
--- NOTE | 2016-08-08 11:48 | PCM.PYCHPN ---
Psychiatric Progress Note - Psychiatric Progress Note Patient seen today, length of contact: Patient evaluated, case discussed with team, chart reviewed Patient Chief Complaint: seen laying in room holding stuffed animal resting then seen ambulating in unit. staff report pt has been calmer has been adherent with treatment. pt is not aware of date, time, place nor circumstance-pt is pending [facility] care placement for total care Problems Identified/Issues Discussed: impaired cognitive function impaired self care delusional disorder history of medical issues multiple substance use history intubation, anoxia Medical Problems: per chart Diagnostic Results: per psychiatry per medicine per nursing per social work per recreational therapy DSM 5 Symptoms Update: impaired cognition impaired self care-total care necessary Medication Change: No Medical Record Reviewed: Yes Mental Status Examination - Cognitive Function Memory: Impaired Attention: Poor Concentration: Poor Association: Loose Fund of Knowledge: Poor (Poor due to dementia) Decription of patient's judgement and insights: poor - Mood Mood: Neutral - Affect Affect: Broad - Speech Speech: Appropriate - Formal Thought Process Formal Thought Process: Loosening of associations - Suicidal Ideation Suicidal Ideation: No - Homicidal Ideation Homicidal Ideation: No Goal/Treatment Plan - Goal/Treatment Plan Need for Continued Stay: Failed transitioning, Severe functional impairment Progress Toward Problem(s) and Goals/Treatment Plan: inpt milieu adjust meds per status q 15min rounds and per clinical status Nursing support with adls discharge planning progress usp care pending Estimated Date of D/C: 08/14/16 (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
[2016-08-08] MEDS: Divalproex 250 mg DR(BID formulation) PO SCH (17:35)
[2016-08-09] MEDS: Divalproex 500 mg DR(BID formulation) PO SCH (08:12)
[2016-08-09] MEDS: Multivitamin With Minerals Tab PO SCH (08:13)
[2016-08-09] MEDS: Divalproex 250 mg DR(BID formulation) PO SCH (17:23)
--- NOTE | 2016-08-10 03:50 | PCM.PYCHPN ---
Psychiatric Progress Note - Psychiatric Progress Note Patient seen today, length of contact: Patient evaluated, case discussed with team, chart reviewed Patient Chief Complaint: seen laying in room holding stuffed animal resting then seen ambulating in unit. staff report pt has been calmer has been adherent with treatment. pt is not aware of date, time, place nor circumstance-pt is pending [facility] care placement for total care Problems Identified/Issues Discussed: impaired cognitive function impaired self care delusional disorder history of medical issues multiple substance use history intubation, anoxia Medical Problems: per chart Diagnostic Results: per psychiatry per medicine per nursing per social work per recreational therapy DSM 5 Symptoms Update: alteration in cognition alteration in self care requires total care Medication Change: No Medical Record Reviewed: Yes Mental Status Examination - Cognitive Function Memory: Impaired Attention: Poor Concentration: Poor Association: Loose Fund of Knowledge: Poor (Poor due to dementia) Decription of patient's judgement and insights: poor - Mood Mood: Neutral - Affect Affect: Broad - Speech Speech: Appropriate - Formal Thought Process Formal Thought Process: Loosening of associations - Suicidal Ideation Suicidal Ideation: No - Homicidal Ideation Homicidal Ideation: No Goal/Treatment Plan - Goal/Treatment Plan Need for Continued Stay: Failed transitioning, Severe functional impairment Progress Toward Problem(s) and Goals/Treatment Plan: inpt milieu adjust meds per status q 15min rounds and per clinical status Nursing support with adls discharge planning progress [facility] care pending Estimated Date of D/C: 08/14/16 (Pending insurance for [facility] placement) - Smoking Cessation Smoking Cessation Initiated: No Reason for not providing: deferred
--- NOTE | 2016-08-10 07:19 | CP.PCM.PN ---
Subjective - Date & Time of Evaluation Date of Evaluation: 08/10/16 Time of Evaluation: 07:54 - Subjective Subjective: 40 year old female was seen sitting comfortably at bedside. Patient in no acute distress. She is tired and states she is would like to go back to sleep.Tolerating PO diet, having normal urine and stool output. Denies n/v/f/c/ sob/cp. Objective - Vital Signs/Intake and Output Vital Signs (last 24 hours): Temp Pulse Resp BP Pulse Ox 97.1 F L 70 18 104/52 L 18 L 08/10/16 05:59 08/10/16 05:59 08/10/16 05:59 08/10/16 05:59 07/18/16 05:46 - Medications Medications: Current Medications Acetaminophen (Tylenol 325mg Tab) 650 mg PO Q4 PRN PRN Reason: Pain, moderate (4-7) Al Hydrox/Mg Hydrox/Simethicone (Maalox Plus 30 Ml) 30 ml PO Q6 PRN PRN Reason: Indigestion / Heartburn Amiodarone HCl (Cordarone) 200 mg PO DAILY [facility] Last Admin: 08/09/16 08:12 Dose: 200 mg Apixaban (Eliquis) 2.5 mg PO DAILY [facility] PRN Reason: Protocol Last Admin: 08/09/16 08:11 Dose: 2.5 mg Diphenhydramine HCl (Benadryl) 50 mg PO Q12 PRN PRN Reason: Agitation Last Admin: 08/08/16 05:17 Dose: 50 mg Diphenhydramine HCl (Benadryl) 50 mg IM Q12 PRN PRN Reason: Agitation Divalproex Sodium (Depakote Dr(*Bid*)) 500 mg PO DAILY [facility] Last Admin: 08/09/16 08:12 Dose: 500 mg Divalproex Sodium (Depakote Dr(*Bid*)) 750 mg PO DAILY@1700 [facility] Last Admin: 08/09/16 17:23 Dose: 750 mg Ferrous Sulfate (Feosol) 325 mg PO DAILY [facility] Last Admin: 08/09/16 08:12 Dose: 325 mg Haloperidol (Haldol) 5 mg PO Q12 PRN PRN Reason: Agitation Last Admin: 07/03/16 23:28 Dose: 5 mg Haloperidol Lactate (Haldol) 5 mg IM Q12 PRN PRN Reason: Agitation Last Admin: 06/22/16 17:12 Dose: 5 mg Lorazepam (Ativan) 1 mg PO Q8 PRN PRN Reason: Agitation Last Admin: 08/08/16 07:10 Dose: 1 mg Magnesium Hydroxide (Milk Of Magnesia) 30 ml PO HS PRN PRN Reason: Constipation Multivitamins/Minerals (Therapeutic-M Tab) 1 tab PO DAILY [facility] Last Admin: 08/09/16 08:13 Dose: 1 tab Olanzapine (Zyprexa) 10 mg PO DAILY@1700 [facility] Last Admin: 08/09/16 17:23 Dose: 10 mg - Labs Labs: 07/21/16 06:40 07/21/16 06:40 - Constitutional Appears: Non-toxic, No Acute Distress - Head Exam Head Exam: NORMAL INSPECTION - Eye Exam Eye Exam: Normal appearance - ENT Exam ENT Exam: Mucous Membranes Moist - Neck Exam Neck Exam: Full ROM - Respiratory Exam Respiratory Exam: NORMAL BREATHING PATTERN. absent: Rales, Rhonchi, Wheezes - Cardiovascular Exam Cardiovascular Exam: REGULAR RHYTHM, +S1, +S2 - GI/Abdominal Exam GI & Abdominal Exam: Soft, Normal Bowel Sounds. absent: Tenderness - Extremities Exam Extremities Exam: Normal Inspection. absent: Pedal Edema, Tenderness - Back Exam Back Exam: NORMAL INSPECTION - Neurological Exam Neurological Exam: Alert, Awake - Psychiatric Exam Psychiatric exam: Normal Affect, Normal Mood - Skin Skin Exam: Dry, Normal Color, Warm Assessment and Plan - Assessment and Plan (Free Text) Assessment: 40 year old female with anoxic encephalopathy s/p cardiac arrest with notable behavior disturbances. Awaiting transfer to long winder tender care facility. 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 -S/P V-fib secondary to cardiomyopathy; Echo EF:~15-20% -Continue with present management. -Eliquis 2.5mg daily (CBC within normal limits on 07/21/16) -Amiodarone 200mg PO daily (last TSH 1.02 on 06/17/16 = within normal limits ) -Heart Healthy Diet -Pending insurance approval for placement into prison care(Estimated discharge this week), patient has temporary guardian. 2) DVT prophylaxis -Patient is on Eliquis as above (2.5mg daily) -Patient ambulates
[2016-08-10] MEDS: Multivitamin With Minerals Tab PO SCH (08:46)
[2016-08-10] MEDS: Divalproex 500 mg DR(BID formulation) PO SCH (08:47)
--- NOTE | 2016-08-10 09:24 | PCM.PYCHPN ---
Psychiatric Progress Note - Psychiatric Progress Note Patient seen today, length of contact: Patient evaluated, case discussed with team, chart reviewed Patient Chief Complaint: "I'm good." Problems Identified/Issues Discussed: No significant events over the weekend. No periods of agitation. She has been eating well. No adverse effects to medications noted. She is not oriented to location, time or situation as per her demented baseline. No acute medical complaints or pain. NO AH/VH/SI/HI. Insurance still pending for her to be transferred to a exterminator living facility. Diagnostic Results: VPA 06/22/16- 60.4 VPA 08/05/16- 71.8 Medication Change: No Medical Record Reviewed: Yes Mental Status Examination - Cognitive Function Orientation: Person (Orientation fluctuates due to dementia) Memory: Impaired Attention: Poor Concentration: Poor Association: Loose Fund of Knowledge: Poor (Poor due to dementia) Decription of patient's judgement and insights: Poor insight, judgment limited by dementia - Mood Mood: Neutral - Affect Affect: Broad - Speech Speech: Appropriate - Formal Thought Process Formal Thought Process: Loosening of associations Psychotic Thoughts and Behaviors: No AH/VH. +Delusional attachment to Joseph doll - Suicidal Ideation Suicidal Ideation: No - Homicidal Ideation Homicidal Ideation: No Goal/Treatment Plan - Goal/Treatment Plan Need for Continued Stay: Failed transitioning, Severe functional impairment Progress Toward Problem(s) and Goals/Treatment Plan: Impression: 40 yo female with dementia with behavioral disturbances, due to h/o cardiac arrest and complications related to anoxia. Plan: -Individual, group and milieu tx -Continue Depakote 500 mg AM/ 750 mg PO @1700 -Continue Zyprexa 10 mg PO Daily @1700 -Disposition planning: insurance pending, then will refer to a long-term facility as she is not able to care for herself Estimated Date of D/C: 08/14/16 (Pending insurance for exterminator placement)
[2016-08-10] MEDS: Divalproex 250 mg DR(BID formulation) PO SCH (16:17)
--- NOTE | 2016-08-11 08:35 | PCM.PYCHPN ---
Psychiatric Progress Note - Psychiatric Progress Note Patient seen today, length of contact: Patient evaluated, case discussed with team, chart reviewed Patient Chief Complaint: "I'm good." Problems Identified/Issues Discussed: No significant events overnight. No periods of agitation. She has been eating/ sleeping well. No adverse effects to medications noted. She is not oriented to location, time or situation as per her demented baseline. No acute medical complaints or pain. NO AH/VH/SI/HI. Insurance still pending for her to be transferred to a intermediate living facility. Diagnostic Results: VPA 06/22/16- 60.4 VPA 08/05/16- 71.8 Medication Change: No Medical Record Reviewed: Yes Mental Status Examination - Cognitive Function Orientation: Person (Orientation fluctuates due to dementia) Memory: Impaired Attention: Poor Concentration: Poor Association: Loose Fund of Knowledge: Poor (Poor due to dementia) Decription of patient's judgement and insights: Poor insight, judgment limited by dementia - Mood Mood: Neutral - Affect Affect: Broad - Speech Speech: Appropriate - Formal Thought Process Formal Thought Process: Loosening of associations Psychotic Thoughts and Behaviors: +Delusional attachment to her Joseph doll - Suicidal Ideation Suicidal Ideation: No - Homicidal Ideation Homicidal Ideation: No Goal/Treatment Plan - Goal/Treatment Plan Need for Continued Stay: Severe functional impairment Progress Toward Problem(s) and Goals/Treatment Plan: Impression: 40 yo female with dementia with behavioral disturbances, due to h/o cardiac arrest and complications related to anoxia. Plan: -Individual, group and milieu tx -Continue Depakote 500 mg AM/ 750 mg PO @1700 -Continue Zyprexa 10 mg PO Daily @1700 -Disposition planning: insurance pending, then will refer to a long-term facility as she is not able to care for herself Estimated Date of D/C: 08/14/16 (Pending insurance for terminal operator placement) - Smoking Cessation Smoking Cessation Initiated: No Reason for not providing: Not indicated
[2016-08-11] MEDS: Multivitamin With Minerals Tab PO SCH (08:38)
[2016-08-11] MEDS: Divalproex 500 mg DR(BID formulation) PO SCH (08:39)
[2016-08-11] MEDS: Divalproex 250 mg DR(BID formulation) PO SCH (16:52)
[2016-08-12] MEDS: Divalproex 500 mg DR(BID formulation) PO SCH (08:08)
[2016-08-12] MEDS: Multivitamin With Minerals Tab PO SCH (08:08)
--- NOTE | 2016-08-12 08:48 | PCM.PYCHPN ---
Psychiatric Progress Note - Psychiatric Progress Note Patient seen today, length of contact: Patient evaluated, case discussed with team, chart reviewed Patient Chief Complaint: "I'm good." Problems Identified/Issues Discussed: No significant events overnight or periods of agitation. She has been eating/ sleeping well. No adverse effects to medications noted. She is not oriented to location, time or situation as per her demented baseline. No acute medical complaints or pain. NO AH/VH/SI/HI. Insurance still pending for her to be transferred to a fci living facility. Diagnostic Results: VPA 06/22/16- 60.4 VPA 08/05/16- 71.8 Medication Change: No Medical Record Reviewed: Yes Mental Status Examination - Cognitive Function Orientation: Person (Orientation fluctuates due to dementia) Memory: Impaired Attention: Poor Concentration: Poor Association: Loose Fund of Knowledge: Poor (Poor due to dementia) Decription of patient's judgement and insights: Poor insight, judgment limited by dementia - Mood Mood: Neutral - Affect Affect: Broad - Speech Speech: Appropriate - Formal Thought Process Formal Thought Process: Loosening of associations Psychotic Thoughts and Behaviors: +Delusional attachment to her Joseph doll - Suicidal Ideation Suicidal Ideation: No - Homicidal Ideation Homicidal Ideation: No Goal/Treatment Plan - Goal/Treatment Plan Need for Continued Stay: Severe functional impairment Progress Toward Problem(s) and Goals/Treatment Plan: Impression: 40 yo female with dementia with behavioral disturbances, due to h/o cardiac arrest and complications related to anoxia. Plan: -Individual, group and milieu tx -Continue Depakote 500 mg AM/ 750 mg PO @1700 -Continue Zyprexa 10 mg PO Daily @1700 -Disposition planning: insurance pending, then will refer to a long-term facility as she is not able to care for herself Estimated Date of D/C: 08/14/16 (Pending insurance for [facility] placement)
[2016-08-12] MEDS: Divalproex 250 mg DR(BID formulation) PO SCH (16:01)
[2016-08-13 01:06] LABS: AMIODARONE 0.5 mcg/mL (1.5-2.5); DESETHYLAMIODARONE 0.4 mcg/mL (1.5-2.5)
--- NOTE | 2016-08-13 07:39 | PCM.PYCHPN ---
Psychiatric Progress Note - Psychiatric Progress Note Patient seen today, length of contact: Patient evaluated, case discussed with team, chart reviewed Patient Chief Complaint: "I'm good." Problems Identified/Issues Discussed: No significant events or periods of agitation. She has been eating/sleeping well. No adverse effects to medications noted. She is not oriented to location , time or situation as per her demented baseline. No acute medical complaints or pain. NO AH/VH/SI/HI. Insurance still pending for her to be transferred to a residential living facility. Diagnostic Results: VPA 06/22/16- 60.4 VPA 08/05/16- 71.8 Medication Change: No Medical Record Reviewed: Yes Mental Status Examination - Cognitive Function Orientation: Person (Orientation fluctuates due to dementia) Memory: Impaired Attention: Poor Concentration: Poor Association: Loose Fund of Knowledge: Poor (Poor due to dementia) Decription of patient's judgement and insights: Poor insight, limited judgment due to dementia - Mood Mood: Neutral - Affect Affect: Broad - Speech Speech: Appropriate - Formal Thought Process Formal Thought Process: Loosening of associations Psychotic Thoughts and Behaviors: +Delusional attachment to her Joseph doll - Suicidal Ideation Suicidal Ideation: No - Homicidal Ideation Homicidal Ideation: No Goal/Treatment Plan - Goal/Treatment Plan Need for Continued Stay: Severe functional impairment Progress Toward Problem(s) and Goals/Treatment Plan: Impression: 40 yo female with dementia with behavioral disturbances, due to h/o cardiac arrest and complications related to anoxia. Plan: -Individual, group and milieu tx -Continue Depakote 500 mg AM/ 750 mg PO @1700 -Continue Zyprexa 10 mg PO Daily @1700 -Disposition planning: insurance pending, then will refer to a long-term facility as she is not able to care for herself Estimated Date of D/C: 08/21/16 (Pending insurance for ocean transportation intermediary placement)
--- NOTE | 2016-08-13 10:23 | CP.PCM.PN ---
Subjective - Date & Time of Evaluation Date of Evaluation: 08/13/16 Time of Evaluation: 10:19 - Subjective Subjective: 40 year old female was seen sitting up comfortably in bed. Patient in no acute distress. She is tired and states she is would like to go back to sleep. Tolerating food, ate her breakfast this morning. She is having normal urine and stool output. Denies n/v/f/c/sob/cp. Objective - Vital Signs/Intake and Output Vital Signs (last 24 hours): Temp Pulse Resp BP Pulse Ox 97.3 F L 76 18 110/80 18 L 08/13/16 05:59 08/13/16 05:59 08/13/16 05:59 08/13/16 05:59 07/18/16 05:46 - Medications Medications: Current Medications Acetaminophen (Tylenol 325mg Tab) 650 mg PO Q4 PRN PRN Reason: Pain, moderate (4-7) Al Hydrox/Mg Hydrox/Simethicone (Maalox Plus 30 Ml) 30 ml PO Q6 PRN PRN Reason: Indigestion / Heartburn Amiodarone HCl (Cordarone) 200 mg PO DAILY [facility] Last Admin: 08/12/16 08:08 Dose: 200 mg Apixaban (Eliquis) 2.5 mg PO DAILY [facility] PRN Reason: Protocol Last Admin: 08/12/16 08:50 Dose: 2.5 mg Diphenhydramine HCl (Benadryl) 50 mg PO Q12 PRN PRN Reason: Agitation Last Admin: 08/08/16 05:17 Dose: 50 mg Diphenhydramine HCl (Benadryl) 50 mg IM Q12 PRN PRN Reason: Agitation Divalproex Sodium (Depakote Dr(*Bid*)) 500 mg PO DAILY [facility] Last Admin: 08/12/16 08:08 Dose: 500 mg Divalproex Sodium (Depakote Dr(*Bid*)) 750 mg PO DAILY@1700 [facility] Last Admin: 08/12/16 16:01 Dose: 750 mg Ferrous Sulfate (Feosol) 325 mg PO DAILY [facility] Last Admin: 08/12/16 08:08 Dose: 325 mg Haloperidol (Haldol) 5 mg PO Q12 PRN PRN Reason: Agitation Last Admin: 07/03/16 23:28 Dose: 5 mg Haloperidol Lactate (Haldol) 5 mg IM Q12 PRN PRN Reason: Agitation Last Admin: 06/22/16 17:12 Dose: 5 mg Lorazepam (Ativan) 1 mg PO Q8 PRN PRN Reason: Agitation Last Admin: 08/08/16 07:10 Dose: 1 mg Magnesium Hydroxide (Milk Of Magnesia) 30 ml PO HS PRN PRN Reason: Constipation Multivitamins/Minerals (Therapeutic-M Tab) 1 tab PO DAILY [facility] Last Admin: 08/12/16 08:08 Dose: 1 tab Olanzapine (Zyprexa) 10 mg PO DAILY@1700 [facility] Last Admin: 08/12/16 16:01 Dose: 10 mg - Labs Labs: 07/21/16 06:40 07/21/16 06:40 - Constitutional Appears: Non-toxic, No Acute Distress - Head Exam Head Exam: NORMAL INSPECTION - Eye Exam Eye Exam: Normal appearance - ENT Exam ENT Exam: Mucous Membranes Moist - Neck Exam Neck Exam: Normal Inspection - Respiratory Exam Respiratory Exam: NORMAL BREATHING PATTERN. absent: Rhonchi, Wheezes, Stridor - Cardiovascular Exam Cardiovascular Exam: REGULAR RHYTHM, +S1, +S2 - GI/Abdominal Exam GI & Abdominal Exam: Soft, Normal Bowel Sounds. absent: Tenderness - Extremities Exam Extremities Exam: Full ROM, Normal Inspection. absent: Pedal Edema - Back Exam Back Exam: NORMAL INSPECTION - Neurological Exam Neurological Exam: Alert, Awake - Psychiatric Exam Psychiatric exam: Normal Affect, Normal Mood - Skin Skin Exam: Dry, Normal Color, Warm Assessment and Plan - Assessment and Plan (Free Text) Assessment: 40 year old female with anoxic encephalopathy s/p cardiac arrest with notable behavior disturbances. Awaiting transfer to care home care facility. 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 -S/P V-fib secondary to cardiomyopathy; Echo EF:~15-20% -Continue with present management. -Eliquis 2.5mg daily (CBC within normal limits on 07/21/16) -Amiodarone 200mg PO daily (last TSH 1.02 on 06/17/16 = within normal limits ) -Heart Healthy Diet -Pending insurance approval for placement into care home care(Estimated discharge this week), patient has temporary guardian. 2) DVT prophylaxis -Patient is on Eliquis as above (2.5mg daily) -Patient ambulates
[2016-08-13] MEDS: Multivitamin With Minerals Tab PO SCH (10:24)
[2016-08-13] MEDS: Divalproex 500 mg DR(BID formulation) PO SCH (10:24)
[2016-08-13] MEDS: Divalproex 250 mg DR(BID formulation) PO SCH (17:58)
[2016-08-14] MEDS: Multivitamin With Minerals Tab PO SCH (10:56)
[2016-08-14] MEDS: Divalproex 500 mg DR(BID formulation) PO SCH (10:56)
[2016-08-14] MEDS: Divalproex 250 mg DR(BID formulation) PO SCH (16:14)
--- NOTE | 2016-08-14 18:39 | PCM.PYCHPN ---
Psychiatric Progress Note - Psychiatric Progress Note Patient seen today, length of contact: Patient evaluated, case discussed with team, chart reviewed Patient Chief Complaint: seen laying in room holding stuffed animal resting then seen ambulating in unit. staff report pt has been calmer has been adherent with treatment. pt is not aware of date, time, place nor circumstance-pt is pending detention care placement for total care Problems Identified/Issues Discussed: impaired cognitive function impaired self care delusional disorder history of medical issues multiple substance use history intubation, anoxia Medical Problems: per chart Diagnostic Results: per psychiatry per medicine per nursing per social work per recreational therapy DSM 5 Symptoms Update: alteration in cognition alteration in self care Medication Change: No Medical Record Reviewed: Yes Mental Status Examination - Cognitive Function Orientation: Person (Orientation fluctuates due to dementia) Memory: Impaired Attention: Poor Concentration: Poor Association: Loose Fund of Knowledge: Poor (Poor due to dementia) Decription of patient's judgement and insights: poor - Mood Mood: Neutral - Affect Affect: Broad - Speech Speech: Appropriate - Formal Thought Process Formal Thought Process: Loosening of associations - Suicidal Ideation Suicidal Ideation: No - Homicidal Ideation Homicidal Ideation: No Goal/Treatment Plan - Goal/Treatment Plan Need for Continued Stay: Severe functional impairment Progress Toward Problem(s) and Goals/Treatment Plan: inpt milieu adjust meds per status q 15min rounds and per clinical status Nursing support with adls discharge planning progress intermediate project manager care pending Estimated Date of D/C: 08/21/16 (Pending insurance for intermediate project manager placement) - Smoking Cessation Smoking Cessation Initiated: No Reason for not providing: defers
[2016-08-15] MEDS: Divalproex 500 mg DR(BID formulation) PO SCH (09:26)
[2016-08-15] MEDS: Multivitamin With Minerals Tab PO SCH (09:26)
--- NOTE | 2016-08-15 10:33 | CP.PCM.PN ---
<Caroline Ferrell - Last Filed: 08/15/16 10:30> Subjective - Date & Time of Evaluation Date of Evaluation: 08/14/16 Time of Evaluation: 11:00 - Subjective Subjective: 40 year old female was seen sitting up comfortably in bed with attending, Dr. Alicia. Patient in no acute distress She states she feels good today. Tolerating food, ate her breakfast this morning. She is having normal urine and stool output. Denies n/v/f/c/sob/cp. Objective - Vital Signs/Intake and Output Vital Signs (last 24 hours): Temp Pulse Resp BP Pulse Ox 97.1 F L 74 18 110/54 L 18 L 08/14/16 15:41 08/15/16 09:26 08/14/16 15:41 08/15/16 09:26 07/18/16 05:46 - Medications Medications: Current Medications Acetaminophen (Tylenol 325mg Tab) 650 mg PO Q4 PRN PRN Reason: Pain, moderate (4-7) Al Hydrox/Mg Hydrox/Simethicone (Maalox Plus 30 Ml) 30 ml PO Q6 PRN PRN Reason: Indigestion / Heartburn Amiodarone HCl (Cordarone) 200 mg PO DAILY [facility] Last Admin: 08/15/16 09:26 Dose: 200 mg Apixaban (Eliquis) 2.5 mg PO DAILY [facility] PRN Reason: Protocol Last Admin: 08/15/16 09:26 Dose: 2.5 mg Diphenhydramine HCl (Benadryl) 50 mg PO Q12 PRN PRN Reason: Agitation Last Admin: 08/08/16 05:17 Dose: 50 mg Diphenhydramine HCl (Benadryl) 50 mg IM Q12 PRN PRN Reason: Agitation Divalproex Sodium (Depakote Dr(*Bid*)) 500 mg PO DAILY [facility] Last Admin: 08/15/16 09:26 Dose: 500 mg Divalproex Sodium (Depakote Dr(*Bid*)) 750 mg PO DAILY@1700 [facility] Last Admin: 08/14/16 16:14 Dose: 750 mg Ferrous Sulfate (Feosol) 325 mg PO DAILY [facility] Last Admin: 08/15/16 09:24 Dose: 325 mg Haloperidol (Haldol) 5 mg PO Q12 PRN PRN Reason: Agitation Last Admin: 07/03/16 23:28 Dose: 5 mg Haloperidol Lactate (Haldol) 5 mg IM Q12 PRN PRN Reason: Agitation Last Admin: 06/22/16 17:12 Dose: 5 mg Lorazepam (Ativan) 1 mg PO Q8 PRN PRN Reason: Agitation Last Admin: 08/08/16 07:10 Dose: 1 mg Magnesium Hydroxide (Milk Of Magnesia) 30 ml PO HS PRN PRN Reason: Constipation Multivitamins/Minerals (Therapeutic-M Tab) 1 tab PO DAILY [facility] Last Admin: 08/15/16 09:26 Dose: 1 tab Olanzapine (Zyprexa) 10 mg PO DAILY@1700 [facility] Last Admin: 08/14/16 16:14 Dose: 10 mg - Labs Labs: 07/21/16 06:40 07/21/16 06:40 - Constitutional Appears: Well, Non-toxic, No Acute Distress - Head Exam Head Exam: NORMAL INSPECTION - Eye Exam Eye Exam: Normal appearance - ENT Exam ENT Exam: Mucous Membranes Moist - Neck Exam Neck Exam: Normal Inspection - Respiratory Exam Respiratory Exam: NORMAL BREATHING PATTERN. absent: Rales, Rhonchi, Wheezes - Cardiovascular Exam Cardiovascular Exam: REGULAR RHYTHM, +S1, +S2 - GI/Abdominal Exam GI & Abdominal Exam: Soft, Normal Bowel Sounds. absent: Tenderness - Extremities Exam Extremities Exam: Normal Inspection. absent: Calf Tenderness, Pedal Edema, Tenderness - Back Exam Back Exam: NORMAL INSPECTION - Neurological Exam Neurological Exam: Alert, Awake - Psychiatric Exam Psychiatric exam: Normal Affect, Normal Mood - Skin Skin Exam: Dry, Normal Color, Warm Assessment and Plan - Assessment and Plan (Free Text) Assessment: 40 year old female with anoxic encephalopathy s/p cardiac arrest with notable behavior disturbances. Awaiting transfer to [facility] facility. Plan: 1. 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 -S/P V-fib secondary to cardiomyopathy; Echo EF:~15-20% -Continue with present management. -Eliquis 2.5mg daily (CBC within normal limits on 07/21/16) -Amiodarone 200mg PO daily (last TSH 1.02 on 06/17/16 = within normal limits ) -Heart Healthy Diet -Pending insurance approval for placement into [facility] care(Estimated discharge next week), patient has temporary guardian. 2. DVT prophylaxis -Patient is on Eliquis as above (2.5mg daily) -Patient ambulates <Stefani Alicia - Last Filed: 08/16/16 08:42> Objective - Vital Signs/Intake and Output Vital Signs (last 24 hours): Temp Pulse Resp BP Pulse Ox 97.1 F L 71 18 116/63 18 L 08/16/16 06:00 08/16/16 06:00 08/16/16 06:00 08/16/16 06:00 07/18/16 05:46 - Medications Medications: Current Medications Acetaminophen (Tylenol 325mg Tab) 650 mg PO Q4 PRN PRN Reason: Pain, moderate (4-7) Al Hydrox/Mg Hydrox/Simethicone (Maalox Plus 30 Ml) 30 ml PO Q6 PRN PRN Reason: Indigestion / Heartburn Amiodarone HCl (Cordarone) 200 mg PO DAILY [facility] Last Admin: 08/15/16 09:26 Dose: 200 mg Apixaban (Eliquis) 2.5 mg PO DAILY [facility] PRN Reason: Protocol Last Admin: 08/15/16 09:26 Dose: 2.5 mg Diphenhydramine HCl (Benadryl) 50 mg PO Q12 PRN PRN Reason: Agitation Last Admin: 08/08/16 05:17 Dose: 50 mg Diphenhydramine HCl (Benadryl) 50 mg IM Q12 PRN PRN Reason: Agitation Divalproex Sodium (Depakote Dr(*Bid*)) 500 mg PO DAILY [facility] Last Admin: 08/15/16 09:26 Dose: 500 mg Divalproex Sodium (Depakote Dr(*Bid*)) 750 mg PO DAILY@1700 [facility] Last Admin: 08/15/16 17:03 Dose: 750 mg Ferrous Sulfate (Feosol) 325 mg PO DAILY [facility] Last Admin: 08/15/16 09:24 Dose: 325 mg Haloperidol (Haldol) 5 mg PO Q12 PRN PRN Reason: Agitation Last Admin: 07/03/16 23:28 Dose: 5 mg Haloperidol Lactate (Haldol) 5 mg IM Q12 PRN PRN Reason: Agitation Last Admin: 06/22/16 17:12 Dose: 5 mg Lorazepam (Ativan) 1 mg PO Q8 PRN PRN Reason: Agitation Last Admin: 08/08/16 07:10 Dose: 1 mg Magnesium Hydroxide (Milk Of Magnesia) 30 ml PO HS PRN PRN Reason: Constipation Multivitamins/Minerals (Therapeutic-M Tab) 1 tab PO DAILY [facility] Last Admin: 08/15/16 09:26 Dose: 1 tab Olanzapine (Zyprexa) 10 mg PO DAILY@1700 [facility] Last Admin: 08/15/16 17:03 Dose: 10 mg - Labs Labs: 07/21/16 06:40 07/21/16 06:40 - Skin Additional comments: ATTESTATION STATEMENT ATTENDING STATEMENT PATIENT SEEN AD EXAMINED. REPORTS NO COMPLAINTS. CASE DISCUSSED WITH RESIDENT. AGREE WITH PLAN.
[2016-08-15] MEDS: Divalproex 250 mg DR(BID formulation) PO SCH (17:03)
[2016-08-16] MEDS: Multivitamin With Minerals Tab PO SCH (09:19)
[2016-08-16] MEDS: Divalproex 500 mg DR(BID formulation) PO SCH (09:19)
--- NOTE | 2016-08-16 14:06 | PCM.PYCHPN ---
Psychiatric Progress Note - Psychiatric Progress Note Patient seen today, length of contact: Patient evaluated, case discussed with team, chart reviewed Patient Chief Complaint: pt has remained intermittently paranoid and irritible and still with poor cognition and poor insight Problems Identified/Issues Discussed: admitted for disorganized thinking and disruptive behaviors due to dementia with psychosis Medication Change: No Medical Record Reviewed: Yes Mental Status Examination - Cognitive Function Orientation: Person (Orientation fluctuates due to dementia) Memory: Impaired Attention: Poor Concentration: Poor Association: Loose Fund of Knowledge: Poor (Poor due to dementia) - Mood Mood: Neutral - Affect Affect: Broad - Speech Speech: Appropriate - Formal Thought Process Formal Thought Process: Loosening of associations - Suicidal Ideation Suicidal Ideation: No - Homicidal Ideation Homicidal Ideation: No Goal/Treatment Plan - Goal/Treatment Plan Need for Continued Stay: Severe functional impairment Progress Toward Problem(s) and Goals/Treatment Plan: will continue to titrate meds as regimen and engage pt in behavior plan on unit. pt is waiting for placement. Estimated Date of D/C: 08/21/16 (Pending insurance for termite control technician placement)
[2016-08-16] MEDS: Divalproex 250 mg DR(BID formulation) PO SCH (17:21)
[2016-08-17] MEDS: Divalproex 500 mg DR(BID formulation) PO SCH (10:11)
[2016-08-17] MEDS: Multivitamin With Minerals Tab PO SCH (10:11)
--- NOTE | 2016-08-17 16:45 | CP.PCM.PN ---
Subjective - Date & Time of Evaluation Date of Evaluation: 08/17/16 Time of Evaluation: 16:42 - Subjective Subjective: Patient in no acute distress no acute event overnight ,She states she feels good today. Tolerating food, ate her breakfast this morning. She is having normal urine and stool output. Denies n/v/f/c/sob/cp. Objective - Vital Signs/Intake and Output Vital Signs (last 24 hours): Temp Pulse Resp BP Pulse Ox 97.0 F L 70 20 103/62 18 L 08/17/16 15:25 08/17/16 15:25 08/17/16 15:25 08/17/16 15:25 07/18/16 05:46 - Medications Medications: Current Medications Acetaminophen (Tylenol 325mg Tab) 650 mg PO Q4 PRN PRN Reason: Pain, moderate (4-7) Al Hydrox/Mg Hydrox/Simethicone (Maalox Plus 30 Ml) 30 ml PO Q6 PRN PRN Reason: Indigestion / Heartburn Amiodarone HCl (Cordarone) 200 mg PO DAILY [facility] Last Admin: 08/17/16 10:15 Dose: 200 mg Apixaban (Eliquis) 2.5 mg PO DAILY [facility] PRN Reason: Protocol Diphenhydramine HCl (Benadryl) 50 mg PO Q12 PRN PRN Reason: Agitation Last Admin: 08/08/16 05:17 Dose: 50 mg Diphenhydramine HCl (Benadryl) 50 mg IM Q12 PRN PRN Reason: Agitation Divalproex Sodium (Depakote Dr(*Bid*)) 500 mg PO DAILY [facility] Last Admin: 08/17/16 10:11 Dose: 500 mg Divalproex Sodium (Depakote Dr(*Bid*)) 750 mg PO DAILY@1700 [facility] Last Admin: 08/16/16 17:21 Dose: 750 mg Ferrous Sulfate (Feosol) 325 mg PO DAILY [facility] Last Admin: 08/17/16 10:11 Dose: 325 mg Haloperidol (Haldol) 5 mg PO Q12 PRN PRN Reason: Agitation Last Admin: 07/03/16 23:28 Dose: 5 mg Haloperidol Lactate (Haldol) 5 mg IM Q12 PRN PRN Reason: Agitation Last Admin: 06/22/16 17:12 Dose: 5 mg Lorazepam (Ativan) 1 mg PO Q8 PRN PRN Reason: Agitation Last Admin: 08/08/16 07:10 Dose: 1 mg Magnesium Hydroxide (Milk Of Magnesia) 30 ml PO HS PRN PRN Reason: Constipation Multivitamins/Minerals (Therapeutic-M Tab) 1 tab PO DAILY [facility] Last Admin: 08/17/16 10:11 Dose: 1 tab Olanzapine (Zyprexa) 10 mg PO DAILY@1700 [facility] Last Admin: 08/16/16 17:21 Dose: 10 mg - Labs Labs: 07/21/16 06:40 07/21/16 06:40 - Head Exam Additional comments: NORMAL INSPECTION - Eye Exam Eye Exam: Normal appearance - ENT Exam ENT Exam: Mucous Membranes Moist - Neck Exam Neck Exam: Normal Inspection - Respiratory Exam Respiratory Exam: NORMAL BREATHING PATTERN. absent: Rales, Rhonchi, Wheezes - Cardiovascular Exam Cardiovascular Exam: REGULAR RHYTHM, +S1, +S2 - GI/Abdominal Exam GI & Abdominal Exam: Soft, Normal Bowel Sounds. absent: Tenderness - Extremities Exam Extremities Exam: Normal Inspection. 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 -S/P V-fib secondary to cardiomyopathy; Echo EF: ~ 15-20% -Continue with present management. -Eliquis 2.5mg daily -Amiodarone 200mg PO daily -Heart Healthy Diet -Pending insurance approval for placement into termite treater care, patient has temporary guardian. 2) DVT prophylaxis -patient is on Eliquis as above -patient ambulates
[2016-08-17] MEDS: Divalproex 250 mg DR(BID formulation) PO SCH (17:15)
--- NOTE | 2016-08-17 17:42 | PCM.PYCHPN ---
Psychiatric Progress Note - Psychiatric Progress Note Patient seen today, length of contact: Patient evaluated, case discussed with team, chart reviewed Patient Chief Complaint: seen laying in room holding stuffed animal resting then seen ambulating in unit. staff report pt has been calmer has been adherent with treatment. pt is not aware of date, time, place nor circumstance-pt is pending [facility] care placement for total care Problems Identified/Issues Discussed: impaired cognitive function impaired self care delusional disorder history of medical issues multiple substance use history intubation, anoxia, cardiomyopathy Medical Problems: per chart Diagnostic Results: per psychiatry per medicine per nursing per social work per recreational therapy DSM 5 Symptoms Update: alteration in cognition alteration in self care Medication Change: No Medical Record Reviewed: Yes Mental Status Examination - Cognitive Function Orientation: Person (Orientation fluctuates due to dementia) Memory: Impaired Attention: Poor Concentration: Poor Association: Loose Fund of Knowledge: Poor (Poor due to dementia) Decription of patient's judgement and insights: poor - Mood Mood: Neutral - Affect Affect: Broad - Speech Speech: Appropriate - Formal Thought Process Formal Thought Process: Loosening of associations - Suicidal Ideation Suicidal Ideation: No - Homicidal Ideation Homicidal Ideation: No Goal/Treatment Plan - Goal/Treatment Plan Need for Continued Stay: Severe functional impairment Progress Toward Problem(s) and Goals/Treatment Plan: inpt milieu adjust meds per status q 15min rounds and per clinical status Nursing support with adls discharge planning progress termite exterminator care pending spoke with social insurance administrator pt in process assisting pt with obtaining ssi-ssi has requested an updated neurological exam-neurologist consult order almond paste molder neurologist notified Discharge planning in progress Estimated Date of D/C: 08/21/16 (Pending insurance for termite exterminator placement) - Smoking Cessation Smoking Cessation Initiated: No Reason for not providing: deferred
[2016-08-18] MEDS: Multivitamin With Minerals Tab PO SCH (08:37)
[2016-08-18] MEDS: Divalproex 500 mg DR(BID formulation) PO SCH (08:37)
[2016-08-18] MEDS: Divalproex 250 mg DR(BID formulation) PO SCH (16:19)
--- NOTE | 2016-08-18 17:32 | PCM.PYCHPN ---
Psychiatric Progress Note - Psychiatric Progress Note Patient seen today, length of contact: Patient evaluated, case discussed with team, chart reviewed Patient Chief Complaint: seen laying in room holding stuffed animal resting then seen ambulating in unit. staff report pt has been calmer has been adherent with treatment. pt is not aware of date, time, place nor circumstance-pt is pending [facility] care placement for total care Problems Identified/Issues Discussed: impaired cognitive function impaired self care delusional disorder history of medical issues multiple substance use history intubation, anoxia, cardiomyopathy Medical Problems: per chart Diagnostic Results: per psychiatry per medicine per nursing per social work per recreational therapy DSM 5 Symptoms Update: alteration in self care alteration in cognition Medication Change: No Medical Record Reviewed: Yes Consults ordered or reviewed: neurology consult was ordered yesterday currently pending related to update of neurological status/examination Mental Status Examination - Cognitive Function Orientation: Person (Orientation fluctuates due to dementia) Memory: Impaired Attention: Poor Concentration: Poor Association: Loose Fund of Knowledge: Poor (Poor due to dementia) Decription of patient's judgement and insights: poor - Mood Mood: Neutral - Affect Affect: Broad - Speech Speech: Appropriate - Formal Thought Process Formal Thought Process: Loosening of associations - Suicidal Ideation Suicidal Ideation: No - Homicidal Ideation Homicidal Ideation: No Goal/Treatment Plan - Goal/Treatment Plan Need for Continued Stay: Severe functional impairment Progress Toward Problem(s) and Goals/Treatment Plan: inpt milieu adjust meds per status q 15min rounds and per clinical status Nursing support with adls discharge planning progress long term care social worker care pending spoke with long term care social worker pt in process assisting pt with obtaining [facility] has requested an updated neurological exam-neurologist consult ordered yesterday and is currently pending Discharge planning in progress Estimated Date of D/C: 08/21/16 (Pending insurance for long term care social worker placement) - Smoking Cessation Smoking Cessation Initiated: No Reason for not providing: pt deferred
[2016-08-19] MEDS: Multivitamin With Minerals Tab PO SCH (08:08)
[2016-08-19] MEDS: Divalproex 500 mg DR(BID formulation) PO SCH (08:08)
[2016-08-19] MEDS: Divalproex 250 mg DR(BID formulation) PO SCH (16:28)
--- NOTE | 2016-08-19 21:15 | PCM.PYCHPN ---
Psychiatric Progress Note - Psychiatric Progress Note Patient seen today, length of contact: Patient evaluated, case discussed with team, chart reviewed Patient Chief Complaint: seen laying in room holding stuffed animal resting then seen ambulating in unit. staff report pt has been calmer has been adherent with treatment. pt is not aware of date, time, place nor circumstance-pt is pending correction care placement for total care Problems Identified/Issues Discussed: impaired cognitive function impaired self care delusional disorder history of medical issues multiple substance use history intubation, anoxia, cardiomyopathy Medical Problems: per chart Diagnostic Results: per psychiatry per medicine per nursing per social work per recreational therapy DSM 5 Symptoms Update: alteration in thought process alteration in cognitive function Medication Change: No Medical Record Reviewed: Yes Mental Status Examination - Cognitive Function Orientation: Person (Orientation fluctuates due to dementia) Memory: Impaired Attention: Poor Concentration: Poor Association: Loose Fund of Knowledge: Poor (Poor due to dementia) Decription of patient's judgement and insights: poor - Mood Mood: Neutral - Affect Affect: Broad - Speech Speech: Appropriate - Formal Thought Process Formal Thought Process: Loosening of associations - Suicidal Ideation Suicidal Ideation: No - Homicidal Ideation Homicidal Ideation: No Goal/Treatment Plan - Goal/Treatment Plan Need for Continued Stay: Severe functional impairment Progress Toward Problem(s) and Goals/Treatment Plan: inpt milieu adjust meds per status q 15min rounds and per clinical status Nursing support with adls discharge planning progress petroleum terminal plant operator care pending spoke with certified social workers in health care pt in process assisting pt with obtaining ssi-ssi has requested an updated neurological exam-neurologist consult ordered yesterday and is currently pending Discharge planning in progress Estimated Date of D/C: 08/21/16 (Pending insurance for petroleum terminal plant operator placement) - Smoking Cessation Smoking Cessation Initiated: No Reason for not providing: pt deferred
[2016-08-20] MEDS: Multivitamin With Minerals Tab PO SCH (11:59)
[2016-08-20] MEDS: Divalproex 500 mg DR(BID formulation) PO SCH (11:59)
--- NOTE | 2016-08-20 15:14 | PCM.PYCHPN ---
Psychiatric Progress Note - Psychiatric Progress Note Patient seen today, length of contact: Patient evaluated, case discussed with team, chart reviewed Patient Chief Complaint: seen laying in room holding stuffed animal resting then seen ambulating in unit. staff report pt has been calmer has been adherent with treatment. pt is not aware of date, time, place nor circumstance-pt is pending prison care placement for total care Problems Identified/Issues Discussed: impaired cognitive function impaired self care delusional disorder history of medical issues multiple substance use history intubation, anoxia, cardiomyopathy Medical Problems: per chart Diagnostic Results: per psychiatry per medicine per nursing per social work per recreational therapy DSM 5 Symptoms Update: alteration in cognition alteration in self care alteration in safety Medication Change: No Medical Record Reviewed: Yes Consults ordered or reviewed: consult request has been placed with dr stevenson neurologist Mental Status Examination - Cognitive Function Orientation: Person (Orientation fluctuates due to dementia) Memory: Impaired Attention: Poor Concentration: Poor Association: Loose Fund of Knowledge: Poor (Poor due to dementia) Decription of patient's judgement and insights: poor - Mood Mood: Neutral - Affect Affect: Broad - Speech Speech: Appropriate - Formal Thought Process Formal Thought Process: Loosening of associations - Suicidal Ideation Suicidal Ideation: No - Homicidal Ideation Homicidal Ideation: No Goal/Treatment Plan - Goal/Treatment Plan Need for Continued Stay: Remain at risks for inpatient hospitalization, Severe functional impairment Progress Toward Problem(s) and Goals/Treatment Plan: inpt milieu adjust meds per status q 15min rounds and per clinical status Nursing support with adls discharge planning progress oil heaterman care pending spoke with licensed clinical social worker pt in process assisting pt with obtaining ssi-ssi has requested an updated neurological exam-neurologist consult ordered yesterday and is currently pending Discharge planning in progress Estimated Date of D/C: 08/25/16 (Pending insurance for oil heaterman placement) - Smoking Cessation Smoking Cessation Initiated: No Reason for not providing: deferred
[2016-08-20] MEDS: Divalproex 250 mg DR(BID formulation) PO SCH (17:14)
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
--- NOTE | 2016-08-21 07:49 | CP.PCM.PN ---
Subjective - Date & Time of Evaluation Date of Evaluation: 08/21/16 Time of Evaluation: 07:45 - Subjective Subjective: The patient is a 40 year old woman with anoxic encephalopathy s/p cardiac arrest with notable behavior disturbances. The patient was seen this morning. There are no acute events overnight. The patient is not in acute distress. The patient is laying in bed comfortably with stuffed plush toy. The patient has no complaints. The patient is afebrile , tolerating PO, having normal urine/stool output. The patient denies headaches , dizziness, chest pain, abdomina pain, nausea, vomiting, dysuria, and fevers. Objective - Vital Signs/Intake and Output Vital Signs (last 24 hours): Temp Pulse Resp BP Pulse Ox 97.1 F L 71 20 118/79 18 L 08/21/16 05:50 08/21/16 05:50 08/21/16 05:50 08/21/16 05:50 07/18/16 05:46 - Medications Medications: Current Medications Acetaminophen (Tylenol 325mg Tab) 650 mg PO Q4 PRN PRN Reason: Pain, moderate (4-7) Al Hydrox/Mg Hydrox/Simethicone (Maalox Plus 30 Ml) 30 ml PO Q6 PRN PRN Reason: Indigestion / Heartburn Amiodarone HCl (Cordarone) 200 mg PO DAILY [facility] Last Admin: 08/20/16 11:58 Dose: 200 mg Apixaban (Eliquis) 2.5 mg PO DAILY [facility] PRN Reason: Protocol Last Admin: 08/20/16 11:59 Dose: 2.5 mg Diphenhydramine HCl (Benadryl) 50 mg PO Q12 PRN PRN Reason: Agitation Last Admin: 08/08/16 05:17 Dose: 50 mg Diphenhydramine HCl (Benadryl) 50 mg IM Q12 PRN PRN Reason: Agitation Divalproex Sodium (Depakote Dr(*Bid*)) 500 mg PO DAILY [facility] Last Admin: 08/20/16 11:59 Dose: 500 mg Divalproex Sodium (Depakote Dr(*Bid*)) 750 mg PO DAILY@1700 [facility] Last Admin: 08/20/16 17:14 Dose: 750 mg Ferrous Sulfate (Feosol) 325 mg PO DAILY [facility] Last Admin: 08/20/16 11:58 Dose: 325 mg Haloperidol (Haldol) 5 mg PO Q12 PRN PRN Reason: Agitation Last Admin: 07/03/16 23:28 Dose: 5 mg Haloperidol Lactate (Haldol) 5 mg IM Q12 PRN PRN Reason: Agitation Last Admin: 06/22/16 17:12 Dose: 5 mg Lorazepam (Ativan) 1 mg PO Q8 PRN PRN Reason: Agitation Last Admin: 08/08/16 07:10 Dose: 1 mg Magnesium Hydroxide (Milk Of Magnesia) 30 ml PO HS PRN PRN Reason: Constipation Multivitamins/Minerals (Therapeutic-M Tab) 1 tab PO DAILY [facility] Last Admin: 08/20/16 11:59 Dose: 1 tab Olanzapine (Zyprexa) 10 mg PO DAILY@1700 [facility] Last Admin: 08/20/16 17:14 Dose: 10 mg - Labs Labs: 07/21/16 06:40 07/21/16 06:40 - Constitutional Appears: No Acute Distress - Head Exam Head Exam: ATRAUMATIC, NORMOCEPHALIC - ENT Exam ENT Exam: Mucous Membranes Moist - Respiratory Exam Respiratory Exam: Clear to Ausculation Bilateral. absent: Accessory Muscle Use , Chest Wall Tenderness, Decreased Breath Sounds, Prolonged Expiratory Phase, Rales, Rhonchi, Wheezes, Respiratory Distress, Stridor - Cardiovascular Exam Cardiovascular Exam: REGULAR RHYTHM. absent: Tachycardia - GI/Abdominal Exam GI & Abdominal Exam: Soft, Normal Bowel Sounds. absent: Distended, Tenderness - Extremities Exam Extremities Exam: Normal Inspection. 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 -S/P V-fib secondary to cardiomyopathy; Echo EF: ~ 15-20% -Continue with present management. -Eliquis 2.5mg daily -Amiodarone 200mg PO daily -Heart Healthy Diet -Pending insurance approval for placement into truck terminal manager care, patient has temporary guardian. -Neurologist consulted; recommendations appreciated -serial EEGs ordered to rule out seizures by neuro 2) DVT prophylaxis -patient is on Eliquis as above -patient ambulates
[2016-08-21] MEDS: Divalproex 500 mg DR(BID formulation) PO SCH (09:07)
[2016-08-21] MEDS: Multivitamin With Minerals Tab PO SCH (09:07)
--- NOTE | 2016-08-21 11:27 | CP.PCM.CON ---
History of Present Illness - History of Present Illness History of Present Illness: Pt is a 40 year old female first seen by the curriculum writer months ago and recently recalled to assess her cognitive functioning. On the DRS, pt scored an overall score of 116 with significant deficits in memory noted. Patient's immediate recall/Attention skills, Initiation skills, and Conceptualization skills fell within normal limits. Construction skills fell in the Borderline Range. Note, on interview, patent was unable to recall length of time in the hospital, she spoke of being in the hospital for two days vs almost one year. Pt spoke of being days ago though is not . Pt reported having six children though medical records state that she is the mother of 5 children. Pt unable to recall precipitants of her hopsitalization. Note, patient had an anoxic event due to a drug overdose. On interview, she denied a history of drug use, substance dependency or alcohol abuse. Ed/Voc: pt reported being raised in [place], she was unable to recall where she went to hospital, and can not recall her work history. MSE: Pt alert, not oriented to year, able to state month, not day/date, depression denied, anxiety denied, pt acknowledged memory deficits on interview though was positive for signficant confabulation. 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 Plan: Continued care and guardianship Past Patient History - Past Medical History & Family History Past Medical History?: Yes - Past Social History Smoking Status: Current Some Days Smoker - CARDIAC Hx Cardiac Disorders: No Other/Comment: s/p cardiac arrest-October 2015 - PULMONARY Hx Respiratory Disorders: No - NEUROLOGICAL Hx Neurological Disorder: No - HEENT Hx HEENT Problems: No - RENAL Hx Chronic Kidney Disease: No - ENDOCRINE/METABOLIC Hx Endocrine Disorders: No - HEMATOLOGICAL/ONCOLOGICAL Hx Blood Disorders: No Hx AIDS: No Hx Human Immunodeficiency Virus (HIV): No - INTEGUMENTARY Hx Dermatological Problems: No - MUSCULOSKELETAL/RHEUMATOLOGICAL Hx Musculoskeletal Disorders: No Hx Falls: No Hx Fractures: Yes (B/L Feet Facture) - GASTROINTESTINAL Hx Gastritis: Yes (1 mth ago stomach pain) Hx Liver Failure: Yes (was admitted to [place] for Yellow skin) - GENITOURINARY/GYNECOLOGICAL Hx Genitourinary Disorders: No - PSYCHIATRIC Hx Substance Use: Yes - SURGICAL HISTORY Hx Section: Yes (5x) - ANESTHESIA Hx Anesthesia: No Hx Anesthesia Reactions: No Hx Malignant Hyperthermia: No Meds Allergies/Adverse Reactions: Allergies Allergy/AdvReac Type Severity Reaction Status Date / Time morphine AdvReac RASH Verified 10/25/15 12:44 - Medications Medications: Current Medications Acetaminophen (Tylenol 325mg Tab) 650 mg PO Q4 PRN PRN Reason: Pain, moderate (4-7) Al Hydrox/Mg Hydrox/Simethicone (Maalox Plus 30 Ml) 30 ml PO Q6 PRN PRN Reason: Indigestion / Heartburn Amiodarone HCl (Cordarone) 200 mg PO DAILY [facility] Last Admin: 08/21/16 09:06 Dose: 200 mg Apixaban (Eliquis) 2.5 mg PO DAILY [facility] PRN Reason: Protocol Last Admin: 08/21/16 09:08 Dose: 2.5 mg Diphenhydramine HCl (Benadryl) 50 mg PO Q12 PRN PRN Reason: Agitation Last Admin: 08/08/16 05:17 Dose: 50 mg Diphenhydramine HCl (Benadryl) 50 mg IM Q12 PRN PRN Reason: Agitation Divalproex Sodium (Depakote Dr(*Bid*)) 500 mg PO DAILY [facility] Last Admin: 08/21/16 09:07 Dose: 500 mg Divalproex Sodium (Depakote Dr(*Bid*)) 750 mg PO DAILY@1700 [facility] Last Admin: 08/20/16 17:14 Dose: 750 mg Ferrous Sulfate (Feosol) 325 mg PO DAILY [facility] Last Admin: 08/21/16 09:06 Dose: 325 mg Haloperidol (Haldol) 5 mg PO Q12 PRN PRN Reason: Agitation Last Admin: 07/03/16 23:28 Dose: 5 mg Haloperidol Lactate (Haldol) 5 mg IM Q12 PRN PRN Reason: Agitation Last Admin: 06/22/16 17:12 Dose: 5 mg Lorazepam (Ativan) 1 mg PO Q8 PRN PRN Reason: Agitation Last Admin: 08/08/16 07:10 Dose: 1 mg Magnesium Hydroxide (Milk Of Magnesia) 30 ml PO HS PRN PRN Reason: Constipation Multivitamins/Minerals (Therapeutic-M Tab) 1 tab PO DAILY [facility] Last Admin: 08/21/16 09:07 Dose: 1 tab Olanzapine (Zyprexa) 10 mg PO DAILY@1700 [facility] Last Admin: 08/20/16 17:14 Dose: 10 mg Results - Vital Signs Recent Vital Signs: Last Vital Signs Temp 97.1 F L 08/21/16 05:50 Pulse 71 08/21/16 09:06 Resp 20 08/21/16 05:50 BP 118/79 08/21/16 09:06 Pulse Ox 18 L 07/18/16 05:46 - Labs Result Diagrams: 07/21/16 06:40 07/21/16 06:40
[2016-08-21] MEDS: Divalproex 250 mg DR(BID formulation) PO SCH (17:06)
--- NOTE | 2016-08-21 19:49 | PCM.PYCHPN ---
Psychiatric Progress Note - Psychiatric Progress Note Patient seen today, length of contact: Patient evaluated, case discussed with team, chart reviewed Patient Chief Complaint: seen laying in room holding stuffed animal resting then seen ambulating in unit. staff report pt has been calmer has been adherent with treatment. pt is not aware of date, time, place nor circumstance-pt is pending half-way care placement for total care Problems Identified/Issues Discussed: impaired cognitive function impaired self care delusional disorder history of medical issues multiple substance use history intubation, anoxia, cardiomyopathy Medical Problems: per chart Diagnostic Results: per psychiatry per medicine per nursing per social work per recreational therapy DSM 5 Symptoms Update: alteration in cognition, alteration memory/comprehension Medication Change: No Medical Record Reviewed: Yes Consults ordered or reviewed: dr. vences Mental Status Examination - Cognitive Function Orientation: Person (Orientation fluctuates due to dementia) Memory: Impaired Attention: Poor Concentration: Poor Association: Loose Fund of Knowledge: Poor (Poor due to dementia) Decription of patient's judgement and insights: poor - Mood Mood: Neutral - Affect Affect: Broad - Speech Speech: Appropriate - Formal Thought Process Formal Thought Process: Loosening of associations - Suicidal Ideation Suicidal Ideation: No - Homicidal Ideation Homicidal Ideation: No Goal/Treatment Plan - Goal/Treatment Plan Need for Continued Stay: Remain at risks for inpatient hospitalization, Severe functional impairment Progress Toward Problem(s) and Goals/Treatment Plan: inpt milieu adjust meds per status q 15min rounds and per clinical status Nursing support with adls discharge planning progress technical rep care pending spoke with 7th grade social studies teacher pt in process assisting pt with obtaining ssi-ssi has requested an updated neurological exam-neurologist consult ordered yesterday and is currently pending pt seen by dr vences-dementia 2nd anoxia Discharge planning in progress Estimated Date of D/C: 08/25/16 (Pending insurance for technical rep placement) - Smoking Cessation Smoking Cessation Initiated: No Reason for not providing: pt defers
--- NOTE | 2016-08-21 21:34 | CP.PCM.PN ---
Subjective - Date & Time of Evaluation Date of Evaluation: 08/21/16 Time of Evaluation: 15:00 - Subjective Subjective: No change in her condition and it is unlikely to have any significant changes in the near future. Objective - Vital Signs/Intake and Output Vital Signs (last 24 hours): Temp Pulse Resp BP Pulse Ox 97.7 F 71 19 94/62 L 18 L 08/21/16 15:56 08/21/16 15:56 08/21/16 15:56 08/21/16 15:56 07/18/16 05:46 - Medications Medications: Current Medications Acetaminophen (Tylenol 325mg Tab) 650 mg PO Q4 PRN PRN Reason: Pain, moderate (4-7) Al Hydrox/Mg Hydrox/Simethicone (Maalox Plus 30 Ml) 30 ml PO Q6 PRN PRN Reason: Indigestion / Heartburn Amiodarone HCl (Cordarone) 200 mg PO DAILY [facility] Last Admin: 08/21/16 09:06 Dose: 200 mg Apixaban (Eliquis) 2.5 mg PO DAILY [facility] PRN Reason: Protocol Last Admin: 08/21/16 09:08 Dose: 2.5 mg Diphenhydramine HCl (Benadryl) 50 mg PO Q12 PRN PRN Reason: Agitation Last Admin: 08/08/16 05:17 Dose: 50 mg Diphenhydramine HCl (Benadryl) 50 mg IM Q12 PRN PRN Reason: Agitation Divalproex Sodium (Depakote Dr(*Bid*)) 500 mg PO DAILY [facility] Last Admin: 08/21/16 09:07 Dose: 500 mg Divalproex Sodium (Depakote Dr(*Bid*)) 750 mg PO DAILY@1700 [facility] Last Admin: 08/21/16 17:06 Dose: 750 mg Ferrous Sulfate (Feosol) 325 mg PO DAILY [facility] Last Admin: 08/21/16 09:06 Dose: 325 mg Haloperidol (Haldol) 5 mg PO Q12 PRN PRN Reason: Agitation Last Admin: 07/03/16 23:28 Dose: 5 mg Haloperidol Lactate (Haldol) 5 mg IM Q12 PRN PRN Reason: Agitation Last Admin: 06/22/16 17:12 Dose: 5 mg Lorazepam (Ativan) 1 mg PO Q8 PRN PRN Reason: Agitation Last Admin: 08/08/16 07:10 Dose: 1 mg Magnesium Hydroxide (Milk Of Magnesia) 30 ml PO HS PRN PRN Reason: Constipation Multivitamins/Minerals (Therapeutic-M Tab) 1 tab PO DAILY [facility] Last Admin: 08/21/16 09:07 Dose: 1 tab Olanzapine (Zyprexa) 10 mg PO DAILY@1700 [facility] Last Admin: 08/21/16 17:06 Dose: 10 mg - Labs Labs: 07/21/16 06:40 07/21/16 06:40
[2016-08-22] MEDS: Multivitamin With Minerals Tab PO SCH (11:56)
[2016-08-22] MEDS: Divalproex 500 mg DR(BID formulation) PO SCH (11:56)
--- NOTE | 2016-08-22 12:19 | PCM.PYCHPN ---
Psychiatric Progress Note - Psychiatric Progress Note Patient seen today, length of contact: discussed with team Patient Chief Complaint: no complaints Problems Identified/Issues Discussed: pt continues be confused. neurology indicates that little chance for improvement. seen by psychology. she is still able to be easily verbally redirected by staff. no c/o medication side effects. Medication Change: No Medical Record Reviewed: Yes Mental Status Examination - Cognitive Function Orientation: Person (Orientation fluctuates due to dementia) Memory: Impaired Attention: Poor Concentration: Poor Association: Loose Fund of Knowledge: Poor (Poor due to dementia) Decription of patient's judgement and insights: poor - Mood Mood: Neutral - Affect Affect: Broad - Speech Speech: Appropriate - Formal Thought Process Formal Thought Process: Loosening of associations - Suicidal Ideation Suicidal Ideation: No - Homicidal Ideation Homicidal Ideation: No Goal/Treatment Plan - Goal/Treatment Plan Need for Continued Stay: Remain at risks for inpatient hospitalization, Severe functional impairment Progress Toward Problem(s) and Goals/Treatment Plan: vascular dementia with with behavioral disturbance continue current treatment per primary team Estimated Date of D/C: 08/25/16 (Pending insurance for terminal gauger supervisor placement)
[2016-08-22] MEDS: Divalproex 250 mg DR(BID formulation) PO SCH (17:22)
--- NOTE | 2016-08-22 17:38 | CP.PCM.PN ---
Subjective - Date & Time of Evaluation Date of Evaluation: 08/22/16 Time of Evaluation: 16:10 - Subjective Subjective: No changes except that she might be oriented to the Staff taking care of her. She will not be able to earn her living or hold a job as she is suffering from a significant encephalopathy since more than 9 months, almost 10 months. She is S/P Cardiac respiratory arrest. Objective - Vital Signs/Intake and Output Vital Signs (last 24 hours): Temp Pulse Resp BP Pulse Ox 97.4 F L 70 18 100/71 18 L 08/22/16 16:50 08/22/16 16:50 08/22/16 16:50 08/22/16 16:50 07/18/16 05:46 - Medications Medications: Current Medications Acetaminophen (Tylenol 325mg Tab) 650 mg PO Q4 PRN PRN Reason: Pain, moderate (4-7) Al Hydrox/Mg Hydrox/Simethicone (Maalox Plus 30 Ml) 30 ml PO Q6 PRN PRN Reason: Indigestion / Heartburn Amiodarone HCl (Cordarone) 200 mg PO DAILY [facility] Last Admin: 08/22/16 11:57 Dose: 200 mg Apixaban (Eliquis) 2.5 mg PO DAILY [facility] PRN Reason: Protocol Last Admin: 08/22/16 11:56 Dose: 2.5 mg Diphenhydramine HCl (Benadryl) 50 mg PO Q12 PRN PRN Reason: Agitation Last Admin: 08/08/16 05:17 Dose: 50 mg Diphenhydramine HCl (Benadryl) 50 mg IM Q12 PRN PRN Reason: Agitation Divalproex Sodium (Depakote Dr(*Bid*)) 500 mg PO DAILY [facility] Last Admin: 08/22/16 11:56 Dose: 500 mg Divalproex Sodium (Depakote Dr(*Bid*)) 750 mg PO DAILY@1700 [facility] Last Admin: 08/22/16 17:22 Dose: 750 mg Ferrous Sulfate (Feosol) 325 mg PO DAILY [facility] Last Admin: 08/22/16 11:54 Dose: 325 mg Haloperidol (Haldol) 5 mg PO Q12 PRN PRN Reason: Agitation Last Admin: 07/03/16 23:28 Dose: 5 mg Haloperidol Lactate (Haldol) 5 mg IM Q12 PRN PRN Reason: Agitation Last Admin: 06/22/16 17:12 Dose: 5 mg Lorazepam (Ativan) 1 mg PO Q8 PRN PRN Reason: Agitation Last Admin: 08/08/16 07:10 Dose: 1 mg Magnesium Hydroxide (Milk Of Magnesia) 30 ml PO HS PRN PRN Reason: Constipation Multivitamins/Minerals (Therapeutic-M Tab) 1 tab PO DAILY [facility] Last Admin: 08/22/16 11:56 Dose: 1 tab Olanzapine (Zyprexa) 10 mg PO DAILY@1700 [facility] Last Admin: 08/22/16 17:22 Dose: 10 mg - Labs Labs: 07/21/16 06:40 07/21/16 06:40
[2016-08-23] MEDS: Divalproex 500 mg DR(BID formulation) PO SCH (09:04)
[2016-08-23] MEDS: Multivitamin With Minerals Tab PO SCH (09:04)
--- NOTE | 2016-08-23 13:38 | PCM.PYCHPN ---
Psychiatric Progress Note - Psychiatric Progress Note Patient seen today, length of contact: discussed with team Patient Chief Complaint: no complaints Problems Identified/Issues Discussed: pt continues be confused. she is still able to be easily verbally redirected by staff. no c/o medication side effects. Medication Change: No Medical Record Reviewed: Yes Mental Status Examination - Cognitive Function Orientation: Person (Orientation fluctuates due to dementia) Memory: Impaired Attention: Poor Concentration: Poor Association: Loose Fund of Knowledge: Poor (Poor due to dementia) Decription of patient's judgement and insights: poor - Mood Mood: Neutral - Affect Affect: Broad - Speech Speech: Appropriate - Formal Thought Process Formal Thought Process: Loosening of associations - Suicidal Ideation Suicidal Ideation: No - Homicidal Ideation Homicidal Ideation: No Goal/Treatment Plan - Goal/Treatment Plan Need for Continued Stay: Remain at risks for inpatient hospitalization, Severe functional impairment Progress Toward Problem(s) and Goals/Treatment Plan: vascular dementia with with behavioral disturbance continue current treatment per primary team Estimated Date of D/C: 08/25/16 (Pending insurance for fountain brush assembler placement)
[2016-08-23] MEDS: Divalproex 250 mg DR(BID formulation) PO SCH (16:42)
--- NOTE | 2016-08-23 22:38 | CP.PCM.PN ---
Subjective - Date & Time of Evaluation Date of Evaluation: 08/23/16 Time of Evaluation: 18:25 - Subjective Subjective: Patient keeps on having his permanent problems of disorientation. Patient is walking around but is not retaining any new informations or acting intelligibly. Objective - Vital Signs/Intake and Output Vital Signs (last 24 hours): Temp Pulse Resp BP Pulse Ox 98.1 F 64 19 92/53 L 18 L 08/23/16 16:01 08/23/16 16:01 08/23/16 16:01 08/23/16 16:01 07/18/16 05:46 - Medications Medications: Current Medications Acetaminophen (Tylenol 325mg Tab) 650 mg PO Q4 PRN PRN Reason: Pain, moderate (4-7) Al Hydrox/Mg Hydrox/Simethicone (Maalox Plus 30 Ml) 30 ml PO Q6 PRN PRN Reason: Indigestion / Heartburn Amiodarone HCl (Cordarone) 200 mg PO DAILY [facility] Last Admin: 08/23/16 09:04 Dose: 200 mg Apixaban (Eliquis) 2.5 mg PO DAILY [facility] PRN Reason: Protocol Last Admin: 08/23/16 09:03 Dose: 2.5 mg Diphenhydramine HCl (Benadryl) 50 mg PO Q12 PRN PRN Reason: Agitation Last Admin: 08/08/16 05:17 Dose: 50 mg Diphenhydramine HCl (Benadryl) 50 mg IM Q12 PRN PRN Reason: Agitation Divalproex Sodium (Depakote Dr(*Bid*)) 500 mg PO DAILY [facility] Last Admin: 08/23/16 09:04 Dose: 500 mg Divalproex Sodium (Depakote Dr(*Bid*)) 750 mg PO DAILY@1700 [facility] Last Admin: 08/23/16 16:42 Dose: 750 mg Ferrous Sulfate (Feosol) 325 mg PO DAILY [facility] Last Admin: 08/23/16 09:04 Dose: 325 mg Haloperidol (Haldol) 5 mg PO Q12 PRN PRN Reason: Agitation Last Admin: 07/03/16 23:28 Dose: 5 mg Haloperidol Lactate (Haldol) 5 mg IM Q12 PRN PRN Reason: Agitation Last Admin: 06/22/16 17:12 Dose: 5 mg Lorazepam (Ativan) 1 mg PO Q8 PRN PRN Reason: Agitation Last Admin: 08/08/16 07:10 Dose: 1 mg Magnesium Hydroxide (Milk Of Magnesia) 30 ml PO HS PRN PRN Reason: Constipation Multivitamins/Minerals (Therapeutic-M Tab) 1 tab PO DAILY [facility] Last Admin: 08/23/16 09:04 Dose: 1 tab Olanzapine (Zyprexa) 10 mg PO DAILY@1700 [facility] Last Admin: 08/23/16 16:42 Dose: 10 mg - Labs Labs: 07/21/16 06:40 07/21/16 06:40
--- NOTE | 2016-08-24 07:42 | CP.PCM.PN ---
Subjective - Date & Time of Evaluation Date of Evaluation: 08/24/16 Time of Evaluation: 07:40 - Subjective Subjective: The patient is a 40 year old woman with anoxic encephalopathy s/p cardiac arrest with notable behavior disturbances. The patient was seen this morning. There are no acute events overnight. The patient is not in acute distress. The patient is laying in bed comfortably with stuffed plush toy. The patient has no complaints. The patient is afebrile , tolerating PO, having normal urine/stool output. The patient denies headaches , dizziness, chest pain, abdominal pain, nausea, vomiting, dysuria, and fevers. Patient being seen by neurology. Objective - Vital Signs/Intake and Output Vital Signs (last 24 hours): Temp Pulse Resp BP Pulse Ox 97.9 F 78 20 117/79 18 L 08/24/16 06:00 08/24/16 06:00 08/24/16 06:00 08/24/16 06:00 07/18/16 05:46 - Medications Medications: Current Medications Acetaminophen (Tylenol 325mg Tab) 650 mg PO Q4 PRN PRN Reason: Pain, moderate (4-7) Al Hydrox/Mg Hydrox/Simethicone (Maalox Plus 30 Ml) 30 ml PO Q6 PRN PRN Reason: Indigestion / Heartburn Amiodarone HCl (Cordarone) 200 mg PO DAILY [facility] Last Admin: 08/23/16 09:04 Dose: 200 mg Apixaban (Eliquis) 2.5 mg PO DAILY [facility] PRN Reason: Protocol Last Admin: 08/23/16 09:03 Dose: 2.5 mg Diphenhydramine HCl (Benadryl) 50 mg PO Q12 PRN PRN Reason: Agitation Last Admin: 08/08/16 05:17 Dose: 50 mg Diphenhydramine HCl (Benadryl) 50 mg IM Q12 PRN PRN Reason: Agitation Divalproex Sodium (Depakote Dr(*Bid*)) 500 mg PO DAILY [facility] Last Admin: 08/23/16 09:04 Dose: 500 mg Divalproex Sodium (Depakote Dr(*Bid*)) 750 mg PO DAILY@1700 [facility] Last Admin: 08/23/16 16:42 Dose: 750 mg Ferrous Sulfate (Feosol) 325 mg PO DAILY [facility] Last Admin: 08/23/16 09:04 Dose: 325 mg Haloperidol (Haldol) 5 mg PO Q12 PRN PRN Reason: Agitation Last Admin: 07/03/16 23:28 Dose: 5 mg Haloperidol Lactate (Haldol) 5 mg IM Q12 PRN PRN Reason: Agitation Last Admin: 06/22/16 17:12 Dose: 5 mg Lorazepam (Ativan) 1 mg PO Q8 PRN PRN Reason: Agitation Last Admin: 08/08/16 07:10 Dose: 1 mg Magnesium Hydroxide (Milk Of Magnesia) 30 ml PO HS PRN PRN Reason: Constipation Multivitamins/Minerals (Therapeutic-M Tab) 1 tab PO DAILY [facility] Last Admin: 08/23/16 09:04 Dose: 1 tab Olanzapine (Zyprexa) 10 mg PO DAILY@1700 [facility] Last Admin: 08/23/16 16:42 Dose: 10 mg - Labs Labs: 07/21/16 06:40 07/21/16 06:40 - Constitutional Appears: No Acute Distress - Head Exam Head Exam: ATRAUMATIC, NORMOCEPHALIC - ENT Exam ENT Exam: Mucous Membranes Moist - Respiratory Exam Respiratory Exam: Clear to Ausculation Bilateral. absent: Accessory Muscle Use , Chest Wall Tenderness, Decreased Breath Sounds, Prolonged Expiratory Phase, Rales, Rhonchi, Wheezes, Respiratory Distress, Stridor - Cardiovascular Exam Cardiovascular Exam: REGULAR RHYTHM. absent: Tachycardia - GI/Abdominal Exam GI & Abdominal Exam: Soft, Normal Bowel Sounds. absent: Distended, Tenderness - Extremities Exam Extremities Exam: Normal Inspection. 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 -S/P V-fib secondary to cardiomyopathy; Echo EF: ~ 15-20% -Continue with present management. -Eliquis 2.5mg daily -Amiodarone 200mg PO daily -Heart Healthy Diet -Pending insurance approval for placement into care home care, patient has temporary guardian. -Neurologist consulted; recommendations appreciated -serial EEGs ordered to rule out seizures by neuro 2) DVT prophylaxis -patient is on Eliquis as above -patient ambulates
--- NOTE | 2016-08-24 11:02 | PCM.PYCHPN ---
Psychiatric Progress Note - Psychiatric Progress Note Patient seen today, length of contact: Patient evaluated, chart reviewed, case discussed with team Patient Chief Complaint: "I'm good." Problems Identified/Issues Discussed: No significant events over the weekend or periods of agitation. She has been eating/sleeping well. No adverse effects to medications noted. She is not oriented to location, time or situation as per her demented baseline. No acute medical complaints or pain. NO AH/VH/SI/HI. Diagnostic Results: VPA 06/22/16- 60.4 VPA 08/05/16- 71.8 Medication Change: No Medical Record Reviewed: Yes Mental Status Examination - Cognitive Function Orientation: Person (Orientation fluctuates due to dementia) Memory: Impaired Attention: Poor Concentration: Poor Association: Loose Fund of Knowledge: Poor (Poor due to dementia) Decription of patient's judgement and insights: Poor insight, judgment limited by dementia; patient not acutely violent or threatening - Mood Mood: Neutral - Affect Affect: Broad - Speech Speech: Appropriate - Formal Thought Process Formal Thought Process: Loosening of associations Psychotic Thoughts and Behaviors: +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 Plan: -Individual, group and milieu tx -Continue Depakote 500 mg AM/ 750 mg PO @1700 -Continue Zyprexa 10 mg PO Daily @1700 -Neurology consult pending -Disposition planning: insurance pending, then will refer to a long-term facility as she is not able to care for herself Estimated Date of D/C: 08/28/16 (Pending insurance for terminal carman placement)
[2016-08-24] MEDS: Divalproex 500 mg DR(BID formulation) PO SCH (12:44)
[2016-08-24] MEDS: Multivitamin With Minerals Tab PO SCH (12:45)
[2016-08-24] MEDS: Divalproex 250 mg DR(BID formulation) PO SCH (17:58)
--- NOTE | 2016-08-25 01:22 | CP.PCM.PN ---
Subjective - Date & Time of Evaluation Date of Evaluation: 08/24/16 Time of Evaluation: 20:00 - Subjective Subjective: Patient is feeling well according to her statements, she eats well and walks, but is unable to remember. She is oriented to persons, this is seen in her orientation to the medical staff. She is suffering from dementia and is unable to take care of herself or to work. Objective - Vital Signs/Intake and Output Vital Signs (last 24 hours): Temp Pulse Resp BP Pulse Ox 97.9 F 78 20 117/79 18 L 08/24/16 06:00 08/24/16 12:44 08/24/16 06:00 08/24/16 12:44 07/18/16 05:46 - Medications Medications: Current Medications Acetaminophen (Tylenol 325mg Tab) 650 mg PO Q4 PRN PRN Reason: Pain, moderate (4-7) Al Hydrox/Mg Hydrox/Simethicone (Maalox Plus 30 Ml) 30 ml PO Q6 PRN PRN Reason: Indigestion / Heartburn Amiodarone HCl (Cordarone) 200 mg PO DAILY [facility] Last Admin: 08/24/16 12:44 Dose: 200 mg Apixaban (Eliquis) 2.5 mg PO DAILY [facility] PRN Reason: Protocol Last Admin: 08/24/16 12:44 Dose: 2.5 mg Diphenhydramine HCl (Benadryl) 50 mg PO Q12 PRN PRN Reason: Agitation Last Admin: 08/08/16 05:17 Dose: 50 mg Diphenhydramine HCl (Benadryl) 50 mg IM Q12 PRN PRN Reason: Agitation Divalproex Sodium (Depakote Dr(*Bid*)) 500 mg PO DAILY [facility] Last Admin: 08/24/16 12:44 Dose: 500 mg Divalproex Sodium (Depakote Dr(*Bid*)) 750 mg PO DAILY@1700 [facility] Last Admin: 08/24/16 17:58 Dose: 750 mg Ferrous Sulfate (Feosol) 325 mg PO DAILY [facility] Last Admin: 08/24/16 12:45 Dose: 325 mg Haloperidol (Haldol) 5 mg PO Q12 PRN PRN Reason: Agitation Last Admin: 07/03/16 23:28 Dose: 5 mg Haloperidol Lactate (Haldol) 5 mg IM Q12 PRN PRN Reason: Agitation Last Admin: 06/22/16 17:12 Dose: 5 mg Lorazepam (Ativan) 1 mg PO Q8 PRN PRN Reason: Agitation Last Admin: 08/24/16 20:13 Dose: 1 mg Magnesium Hydroxide (Milk Of Magnesia) 30 ml PO HS PRN PRN Reason: Constipation Multivitamins/Minerals (Therapeutic-M Tab) 1 tab PO DAILY [facility] Last Admin: 08/24/16 12:45 Dose: 1 tab Olanzapine (Zyprexa) 10 mg PO DAILY@1700 [facility] Last Admin: 08/24/16 17:58 Dose: 10 mg - Labs Labs: 07/21/16 06:40 07/21/16 06:40
[2016-08-25] MEDS: Multivitamin With Minerals Tab PO SCH (08:10)
[2016-08-25] MEDS: Divalproex 500 mg DR(BID formulation) PO SCH (08:11)
--- NOTE | 2016-08-25 08:29 | PCM.PYCHPN ---
Psychiatric Progress Note - Psychiatric Progress Note Patient seen today, length of contact: Patient evaluated, chart reviewed, case discussed with team Patient Chief Complaint: "I'm good." Problems Identified/Issues Discussed: No significant events overnight. She has been eating/sleeping well. No adverse effects to medications noted. She is not oriented to location, time or situation as per her demented baseline. No acute medical complaints or pain. NO AH/VH/SI/HI. Diagnostic Results: VPA 06/22/16- 60.4 VPA 08/05/16- 71.8 Medication Change: No Medical Record Reviewed: Yes Mental Status Examination - Cognitive Function Orientation: Person (Orientation fluctuates due to dementia) Memory: Impaired Attention: Poor Concentration: Poor Association: Loose Fund of Knowledge: Poor (Poor due to dementia) Decription of patient's judgement and insights: Poor insight due to dementia, judgment limited by dementia, but she has been in good behavioral control - Mood Mood: Neutral - Affect Affect: Broad - Speech Speech: Appropriate - Formal Thought Process Formal Thought Process: Loosening of associations Psychotic Thoughts and Behaviors: +Delusional attachment to her Joseph doll - Suicidal Ideation Suicidal Ideation: No - Homicidal Ideation Homicidal Ideation: No Goal/Treatment Plan - Goal/Treatment Plan Progress Toward Problem(s) and Goals/Treatment Plan: Impression: 40 yo female with dementia with behavioral disturbances, due to h/o cardiac arrest and complications related to anoxia. Plan: -Individual, group and milieu tx -Continue Depakote 500 mg AM/ 750 mg PO @1700 -Continue Zyprexa 10 mg PO Daily @1700 -Neurology consult pending -Disposition planning: pending transfer to jail once insurance is active Estimated Date of D/C: 08/28/16 (Pending insurance for correction placement)
[2016-08-25] MEDS: Divalproex 250 mg DR(BID formulation) PO SCH (17:33)
--- NOTE | 2016-08-26 01:48 | CP.PCM.PN ---
Subjective - Date & Time of Evaluation Date of Evaluation: 08/25/16 Time of Evaluation: 16:00 - Subjective Subjective: She is doing better and is having a good appetite. She is leaving within 2 days after being stabilized and after her papers went through. Objective - Vital Signs/Intake and Output Vital Signs (last 24 hours): Temp Pulse Resp BP Pulse Ox 97.7 F 63 20 106/73 18 L 08/25/16 16:08 08/25/16 16:08 08/25/16 16:08 08/25/16 16:08 07/18/16 05:46 - Medications Medications: Current Medications Acetaminophen (Tylenol 325mg Tab) 650 mg PO Q4 PRN PRN Reason: Pain, moderate (4-7) Al Hydrox/Mg Hydrox/Simethicone (Maalox Plus 30 Ml) 30 ml PO Q6 PRN PRN Reason: Indigestion / Heartburn Amiodarone HCl (Cordarone) 200 mg PO DAILY [facility] Last Admin: 08/25/16 08:13 Dose: 200 mg Apixaban (Eliquis) 2.5 mg PO DAILY [facility] PRN Reason: Protocol Last Admin: 08/25/16 08:11 Dose: 2.5 mg Diphenhydramine HCl (Benadryl) 50 mg PO Q12 PRN PRN Reason: Agitation Last Admin: 08/08/16 05:17 Dose: 50 mg Diphenhydramine HCl (Benadryl) 50 mg IM Q12 PRN PRN Reason: Agitation Divalproex Sodium (Depakote Dr(*Bid*)) 500 mg PO DAILY [facility] Last Admin: 08/25/16 08:11 Dose: 500 mg Divalproex Sodium (Depakote Dr(*Bid*)) 750 mg PO DAILY@1700 [facility] Last Admin: 08/25/16 17:33 Dose: 750 mg Ferrous Sulfate (Feosol) 325 mg PO DAILY [facility] Last Admin: 08/25/16 08:12 Dose: 325 mg Haloperidol (Haldol) 5 mg PO Q12 PRN PRN Reason: Agitation Last Admin: 07/03/16 23:28 Dose: 5 mg Haloperidol Lactate (Haldol) 5 mg IM Q12 PRN PRN Reason: Agitation Last Admin: 06/22/16 17:12 Dose: 5 mg Lorazepam (Ativan) 1 mg PO Q8 PRN PRN Reason: Agitation Last Admin: 08/24/16 20:13 Dose: 1 mg Magnesium Hydroxide (Milk Of Magnesia) 30 ml PO HS PRN PRN Reason: Constipation Multivitamins/Minerals (Therapeutic-M Tab) 1 tab PO DAILY [facility] Last Admin: 08/25/16 08:10 Dose: 1 tab Olanzapine (Zyprexa) 10 mg PO DAILY@1700 [facility] Last Admin: 08/25/16 17:34 Dose: 10 mg - Labs Labs: 07/21/16 06:40 07/21/16 06:40
--- NOTE | 2016-08-26 07:55 | PCM.PYCHPN ---
Psychiatric Progress Note - Psychiatric Progress Note Patient seen today, length of contact: Patient evaluated, chart reviewed, case discussed with team Patient Chief Complaint: "I'm good." Problems Identified/Issues Discussed: No significant events overnight or yesterday. She has been eating/sleeping well. No adverse effects to medications noted. She is not oriented to location , time or situation as per her demented baseline. No acute medical complaints or pain. NO AH/VH/SI/HI. Diagnostic Results: VPA 06/22/16- 60.4 VPA 08/05/16- 71.8 Medication Change: No Medical Record Reviewed: Yes Mental Status Examination - Cognitive Function Orientation: Person (Orientation fluctuates due to dementia) Memory: Impaired Attention: Poor Concentration: Poor Association: Loose Fund of Knowledge: Poor (Poor due to dementia) Decription of patient's judgement and insights: I/J limited by dementia - Mood Mood: Neutral - Affect Affect: Broad - Speech Speech: Appropriate - Formal Thought Process Formal Thought Process: Loosening of associations Psychotic Thoughts and Behaviors: +Delusional attachment to her Joseph doll - Suicidal Ideation Suicidal Ideation: No - Homicidal Ideation Homicidal Ideation: No Goal/Treatment Plan - Goal/Treatment Plan Need for Continued Stay: Severe functional impairment Progress Toward Problem(s) and Goals/Treatment Plan: Impression: 40 yo female with dementia with behavioral disturbances, due to h/o cardiac arrest and complications related to anoxia. Plan: -Individual, group and milieu tx -Continue Depakote 500 mg AM/ 750 mg PO @1700 -Continue Zyprexa 10 mg PO Daily @1700 -Neurology consult pending -Disposition planning: pending transfer to shelter once insurance is active Estimated Date of D/C: 08/28/16 (Pending insurance for manager long term care placement)
[2016-08-26] MEDS: Divalproex 500 mg DR(BID formulation) PO SCH (10:13)
[2016-08-26] MEDS: Multivitamin With Minerals Tab PO SCH (10:14)
[2016-08-26] MEDS: Divalproex 250 mg DR(BID formulation) PO SCH (17:56)
--- NOTE | 2016-08-26 22:28 | CP.PCM.PN ---
Subjective - Date & Time of Evaluation Date of Evaluation: 08/26/16 - Subjective Subjective: Patient is scheduled to be discharged on 08/28 2016. 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 She is suffering from Dementia. She is unable to learn new information and has disorientation and poor memory. She is able to walk. Objective - Vital Signs/Intake and Output Vital Signs (last 24 hours): Temp Pulse Resp BP Pulse Ox 97.5 F L 67 20 98/64 L 18 L 08/26/16 16:32 08/26/16 16:32 08/26/16 16:32 08/26/16 16:32 07/18/16 05:46 - Medications Medications: Current Medications Acetaminophen (Tylenol 325mg Tab) 650 mg PO Q4 PRN PRN Reason: Pain, moderate (4-7) Al Hydrox/Mg Hydrox/Simethicone (Maalox Plus 30 Ml) 30 ml PO Q6 PRN PRN Reason: Indigestion / Heartburn Amiodarone HCl (Cordarone) 200 mg PO DAILY [facility] Last Admin: 08/26/16 10:13 Dose: 200 mg Apixaban (Eliquis) 2.5 mg PO DAILY [facility] PRN Reason: Protocol Last Admin: 08/26/16 10:12 Dose: 2.5 mg Diphenhydramine HCl (Benadryl) 50 mg PO Q12 PRN PRN Reason: Agitation Last Admin: 08/08/16 05:17 Dose: 50 mg Diphenhydramine HCl (Benadryl) 50 mg IM Q12 PRN PRN Reason: Agitation Divalproex Sodium (Depakote Dr(*Bid*)) 500 mg PO DAILY [facility] Last Admin: 08/26/16 10:13 Dose: 500 mg Divalproex Sodium (Depakote Dr(*Bid*)) 750 mg PO DAILY@1700 [facility] Last Admin: 08/26/16 17:56 Dose: 750 mg Ferrous Sulfate (Feosol) 325 mg PO DAILY [facility] Last Admin: 08/26/16 10:14 Dose: 325 mg Haloperidol (Haldol) 5 mg PO Q12 PRN PRN Reason: Agitation Last Admin: 07/03/16 23:28 Dose: 5 mg Haloperidol Lactate (Haldol) 5 mg IM Q12 PRN PRN Reason: Agitation Last Admin: 06/22/16 17:12 Dose: 5 mg Magnesium Hydroxide (Milk Of Magnesia) 30 ml PO HS PRN PRN Reason: Constipation Multivitamins/Minerals (Therapeutic-M Tab) 1 tab PO DAILY [facility] Last Admin: 08/26/16 10:14 Dose: 1 tab Olanzapine (Zyprexa) 10 mg PO DAILY@1700 [facility] Last Admin: 08/26/16 17:56 Dose: 10 mg - Labs Labs: 07/21/16 06:40 07/21/16 06:40 Assessment and Plan (1) Anoxic encephalopathy (2) Prophylactic measure Status: Acute - Assessment and Plan (Free Text) Assessment: dementia - Assessment and Plan (Free Text) Assessment: Patient has a h/o cardiorespiratory arrest, Central Hypoxia that was treated in the ICU on a ventilator. Patient has been suffering from polysubstance toxic abuse. Patient is suffering from a premorbid condition of mental disorder including a Bipolar Disorder. Currently Patient is unable to function as she is suffering from disorientation, loss of recent and immediate memory, although she is able to walk around. Seizures are to be ruled out on the long run by serial EEG.
[2016-08-27 06:02] VITALS: RESP 18
[2016-08-27] MEDS: Multivitamin With Minerals Tab PO SCH (09:05)
[2016-08-27] MEDS: Divalproex 500 mg DR(BID formulation) PO SCH (09:05)
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
[2016-08-27] MEDS: Divalproex 250 mg DR(BID formulation) PO SCH (17:00)
[2016-08-28 06:11] VITALS: TEMP 98.1
--- NOTE | 2016-08-28 07:36 | CP.PCM.PN ---
Subjective - Date & Time of Evaluation Date of Evaluation: 08/28/16 Time of Evaluation: 07:34 - Subjective Subjective: The patient is a 40 year old woman with anoxic encephalopathy s/p cardiac arrest with notable behavior disturbances. The patient was seen this morning. There are no acute events overnight. The patient is not in acute distress. The patient is laying in bed comfortably with stuffed plush toy. The patient has no complaints. The patient is afebrile , tolerating PO, having normal urine/stool output. The patient denies headaches , dizziness, chest pain, abdominal pain, nausea, vomiting, dysuria, and fevers. Possible discharge today pending authorization. Objective - Vital Signs/Intake and Output Vital Signs (last 24 hours): Temp Pulse Resp BP Pulse Ox 98.1 F 68 18 93/58 L 18 L 08/28/16 06:00 08/28/16 06:00 08/28/16 06:00 08/28/16 06:00 07/18/16 05:46 - Medications Medications: Current Medications Amiodarone HCl (Cordarone) 200 mg PO DAILY [facility] Last Admin: 08/27/16 09:03 Dose: 200 mg Apixaban (Eliquis) 2.5 mg PO DAILY [facility] PRN Reason: Protocol Last Admin: 08/27/16 09:03 Dose: 2.5 mg Divalproex Sodium (Depakote Dr(*Bid*)) 500 mg PO DAILY [facility] Last Admin: 08/27/16 09:05 Dose: 500 mg Divalproex Sodium (Depakote Dr(*Bid*)) 750 mg PO DAILY@1700 [facility] Last Admin: 08/27/16 17:00 Dose: 750 mg Ferrous Sulfate (Feosol) 325 mg PO DAILY [facility] Last Admin: 08/27/16 09:06 Dose: 325 mg Multivitamins/Minerals (Therapeutic-M Tab) 1 tab PO DAILY [facility] Last Admin: 08/27/16 09:05 Dose: 1 tab Olanzapine (Zyprexa) 10 mg PO DAILY@1700 [facility] Last Admin: 08/27/16 17:00 Dose: 10 mg - Labs Labs: 07/21/16 06:40 07/21/16 06:40 - Constitutional Appears: No Acute Distress - Head Exam Head Exam: ATRAUMATIC, NORMOCEPHALIC - Eye Exam Eye Exam: EOMI Pupil Exam: PERRL - ENT Exam ENT Exam: Mucous Membranes Moist - Respiratory Exam Respiratory Exam: Clear to Ausculation Bilateral, NORMAL BREATHING PATTERN. absent: Accessory Muscle Use, Chest Wall Tenderness, Decreased Breath Sounds, Prolonged Expiratory Phase, Rales, Rhonchi, Wheezes, Respiratory Distress, Stridor - Cardiovascular Exam Cardiovascular Exam: REGULAR RHYTHM. absent: Tachycardia - GI/Abdominal Exam GI & Abdominal Exam: Soft, Normal Bowel Sounds. absent: Distended, Tenderness - Extremities Exam Extremities Exam: absent: Calf Tenderness, Tenderness - Neurological Exam Neurological Exam: Altered - Skin Skin Exam: Dry, Intact, Normal Color, Warm Assessment and Plan - Assessment and Plan (Free Text) Assessment: The patient is a 40 year old woman with anoxic encephalopathy s/p cardiac arrest with notable behavior disturbances Plan: 1) Anoxic encephalopathy with behavior disturbances s/p Cardiac Arrest in October 2015 -behavioral disturbances managed as per psych. -S/P V-fib secondary to cardiomyopathy; Echo EF: ~ 15-20% -Continue with present management. -Eliquis 2.5mg daily -Amiodarone 200mg PO daily -Heart Healthy Diet -Pending insurance approval for placement into termite inspector care, patient has temporary guardian. -Neurologist consulted; recommendations appreciated -serial EEGs ordered to rule out seizures by neuro 2) DVT prophylaxis -patient is on Eliquis as above -patient ambulates Dispo - possible discharge to senior living pending authorization
[2016-08-28] MEDS: Divalproex 500 mg DR(BID formulation) PO SCH (10:30)
[2016-08-28] MEDS: Multivitamin With Minerals Tab PO SCH (10:30)
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
[2016-08-28 14:41] VITALS: BP 131/83; PULSE 98
== END 2016-08-28 15:25 | disposition home or self-care (01) | DRG 429 ==
LOC: H.STEP 11:01
PROVIDERS: ADMIT Psychiatry & Neurology Psychiatry; ATTEND Psychiatry & Neurology Psychiatry
PROC: GZHZZZZ Group Psychotherapy (ICD-10-PCS; principal; 2016-05-06)
PROC: GZ58ZZZ Individual Psychotherapy, Cognitive-Behavioral (ICD-10-PCS; 2016-05-06)
DX: F01.51 Vascular dementia, unspecified severity, with behavioral disturbance (principal); I49.01 Ventricular fibrillation; G93.1 Anoxic brain damage, not elsewhere classified; F06.30 Mood disorder due to known physiological condition, unspecified; I42.8 Other cardiomyopathies; F22 Delusional disorders; F31.9 Bipolar disorder, unspecified; F19.10 Other psychoactive substance abuse, uncomplicated; F17.200 Nicotine dependence, unspecified, uncomplicated; Z91.410 Personal history of adult physical and sexual abuse; Z86.74 Personal history of sudden cardiac arrest; Z88.6 Allergy status to analgesic agent